=== PATIENT | male | born 1970 | race Caucasian/White ===

== ENCOUNTER 2019-08-14 15:18 | Observation (INO) ==
[2019-08-14] MEDS ORDERED: MoRPHine SULFATE 4 MG/ML 1 ML CARP\\VIAL IV PRN ×2 (15:37→22:08)
[2019-08-14] MEDS ORDERED: ONDANSETRON INJ 2 MG/ML 2 ML VIAL IV STA (15:37)
[2019-08-14] MEDS ORDERED: SODIUM CHLORIDE 0.9% 1000ML 1,000 ML IV SCH (15:45)
--- NOTE | 2019-08-14 15:52 | Emergency Department Note ---
Entered by Aundrea Roberson acting as a scribe for History of Present Illness General Chief complaint: Abdominal Pain Stated complaint: HERNIA, INCARCERATED POSSIBLE OBSTRUCTION Source: patient History of Present Illness Provider complaint: Abdominal Pain Onset (ago): hour(s) 6 Location: abdomen Maximum Pain Intensity: 8 Relieved By: + none Exacerbated By: + none Associated symptoms: + nausea/vomiting (Positive nausea. Negative vomiting. ) The patient is a 49 year old male who presents to the Emergency Room with com plaints of abdominal pain that began about 6 hours ago. The patient notes that he has had a hernia that was not an issue for about a year and when he woke up this morning he noticed it was protruded. The patient states that his symptoms are not relieved nor exacerbated by anything specific. The patient reports experiencing nausea but denies any vomiting. Home Medications Home Medications Medication Instructions Recorded Confirmed Type No Known Home Medications 08/14/19 08/14/19 History Allergies Allergy/AdvReac Type Severity Reaction Status Date / Time No Known Allergies Allergy Unverified 08/14/19 16:07 Past Med/Surg History Medical History (Updated 08/14/19 @ 17:48 by Eduardo Rogers DO) No pertinent past medical history Surgical History (Updated 08/14/19 @ 18:08 by Burton Barone MD) No pertinent past surgical history S/P appendectomy S/P nasal surgery after fracture with repair of the infraorbital rim S/P wisdom tooth extraction Family History Other No pertinent family history in first degree relatives Social History (Updated 08/14/19 @ 18:09 by Burton Barone MD) Feels Safe at Home: Yes Smoking Status: Never smoker Hx Alcohol Use: Yes (Drinks about half a bottle of vodka daily) Review of Systems See HPI for pertinent positives & negatives. and A total of 10 systems reviewed and were otherwise negative Physical Exam Vital Signs Vital Signs - 24 hr 08/14/19 15:22 08/14/19 15:52 08/14/19 16:00 Pulse Rate 84 71 89 Pulse Rate [Finger] 71 Pulse Rate from SpO2 Sensor 86 Pulse Rhythm [Finger] Respiratory Rate 20 17 20 Respiratory Effort / Characteristics Non-Labored Spontaneous Respiratory Depth Normal Respiratory Pattern Regular Blood Pressure 155/102 H 145/97 H Blood Pressure [Right Arm] 151/101 H Blood Pressure Mean 119 115 Blood Pressure Mean [Right Arm] 117 Pulse Oximetry 97 97 98 Oxygen Delivery Method Room Air Room Air Sepsis Recent Fever Within 48 Hours No Sepsis Action Taken by Nursing No Action Required 08/14/19 16:13 08/14/19 18:00 08/14/19 18:23 Pulse Rate 102 H 102 H Pulse Rate [Finger] 80 Pulse Rate from SpO2 Sensor 100 H 96 H Pulse Rhythm [Finger] Regular Respiratory Rate 21 25 H 16 Respiratory Effort / Characteristics Non-Labored Respiratory Depth Normal Respiratory Pattern Regular Blood Pressure 149/103 H Blood Pressure [Right Arm] 145/97 H Blood Pressure Mean 118 Blood Pressure Mean [Right Arm] 113 Pulse Oximetry 98 95 93 Oxygen Delivery Method Room Air Sepsis Recent Fever Within 48 Hours Sepsis Action Taken by Nursing GENERAL: Patient is awake and alert. He is very anxious appearing and appears to be uncomfortable. EYES: The conjunctivae are clear. The pupils are round and reactive. EARS, NOSE, MOUTH AND THROAT: The nose is without any evidence of any deformity. Mucous membranes are moist. Tongue is midline. NECK: The neck is nontender and supple. RESPIRATORY: Normal respiratory effort is noted there is no evidence of wheezing rhonchi or rales CARDIOVASCULAR: Regular rate and rhythm noted there no murmurs rubs or gallops normal S1 normal S2. GASTROINTESTINAL: The abdomen is moderately distended. There is an umbilical hernia which is not able to be reduced at this time. There is significant tenderness over this area. MUSCULOSKELETAL/EXTREMITIES: There is no evidence of gross deformity full range of motion is noted in the hips and shoulders. SKIN: There is no obvious evidence of any rash. There are no petechiae, pallor or cyanosis noted. NEUROLOGIC: Patient is awake alert and oriented x3. Course Course 1530: Past medical records reviewed. The patient was evaluated in room C10. A complete history and physical exam was performed. 1649: I spoke with Dr. Barone- General Surgery about the patient's case and he will come down and see the patient. 1751: The patient was taken to the operating room. Administered Medications Ioversol (Optiray 320 100ml) 94 ml IV ONCE PRN PRN Reason: Interaction Checking Stop: 08/18/19 16:28 Last Admin: 08/14/19 16:29 Dose: 94 ml Documented by: [id number] Morphine Sulfate (Morphine Sulfate) 4 mg IV Q15M PRN PRN Reason: Pain Stop: 08/28/19 15:36 Last Admin: 08/14/19 15:53 Dose: 4 mg Documented by: [id number] Discontinued Medications Sodium Chloride (Nss 1000ml) 1,000 mls @ 999 mls/hr IV .Q1H1M VINAY Stop: 08/14/19 16:45 Last Infusion: 08/14/19 17:01 Dose: 0 mls/hr Documented by: [id number] Admin: 08/14/19 15:53 Dose: 999 mls/hr Documented by: [id number] Ondansetron HCl (Zofran) 4 mg IV NOW STA Stop: 08/14/19 15:38 Last Admin: 08/14/19 15:53 Dose: 4 mg Documented by: [id number] Medical Decision Making Differential Diagnosis Differential diagnosis: Etiologies such as biliary colic, cholecystitis, hepatitis, pancreatitis, cardiac disease, pancreatitis, gastritis, peptic ulcer disease, appendicitis, cystitis, diverticulitis, mesenteric ischemia, inflammatory bowel disease, ileus, bowel obstruction, testicular torsion, aortic pathology, shingles, as well as others were considered. Medical Records Attestation: I reviewed the patient's medical records. Home Medications Current Medication List: was personally reviewed by me Laboratory Data Attestation: I reviewed the patient's lab results. Result diagrams: 08/14/19 15:48 08/14/19 15:48 Lab Results 08/14/19 08/14/19 08/14/19 Range/Units 15:48 15:48 17:03 WBC 8.70 (4.8-10.8) K/uL RBC 4.69 L (4.7-6.1) M/uL Hgb 14.8 (14.0-18.0) g/dL Hct 43.2 (42-52) % MCV 92.1 (80-100) fL MCH 31.6 (25-34) pg MCHC 34.3 (32-36) g/dL RDW Std Deviation 43.3 (36.4-46.3) fL RDW Coeff of Javy 13.1 (11.5-14.5) % Plt Count 179 (130-400) K/uL MPV 9.3 (7.4-10.4) fL Immature Gran % (Auto) 0.1 % Neut % (Auto) 89.3 % Lymph % (Auto) 8.4 % [place] % (Auto) 2.0 % Eos % (Auto) 0.1 % Baso % (Auto) 0.1 % Immature Gran # (Auto) 0.01 (0.00-0.02) K/uL Neut # (Auto) 7.77 H (1.4-6.5) K/uL Lymph # (Auto) 0.73 L (1.2-3.4) K/uL [place] # (Auto) 0.17 (0.11-0.59) K/uL Eos # (Auto) 0.01 (0-0.5) K/uL Baso # (Auto) 0.01 (0-0.2) K/uL Sodium 139 (136-145) mmol/L Potassium 4.3 (3.5-5.1) mmol/L Chloride 103 (98-107) mmol/L Carbon Dioxide 25 (21-32) mmol/L Anion Gap 11.0 (3-11) BUN 14 (7-18) mg/dl Creatinine 0.87 (0.6-1.4) mg/dl Est Cr Clr Drug Dosing 132.5 ml/min Est GFR ( Amer) 119.1 Est GFR (Non-Af Amer) 102.8 BUN/Creatinine Ratio 15.8 (10-20) Glucose 133 H (70-99) mg/dl Calcium 9.0 (8.5-10.1) mg/dl Total Bilirubin 0.4 (0.2-1) mg/dl AST 24 (15-37) U/L ALT 37 (12-78) U/L Alkaline Phosphatase 53 (45-117) U/L Total Protein 7.6 (6.4-8.2) gm/dl Albumin 4.1 (3.4-5.0) gm/dl Globulin 3.5 (2.5-4.0) gm/dl Albumin/Globulin Ratio 1.2 (0.9-2) Lipase 59 L (73-393) U/L Urine Color Yellow Urine Appearance Clear (Clear) Urine pH 5.0 (4.5-7.5) Ur Specific [place] 1.037 H (1.000-1.030) Urine Protein Negative (Negative) Urine Glucose (UA) Negative (Negative) Urine Ketones 1+ H (Negative) Urine Blood Negative (Negative) Urine Nitrite Negative (Negative) Urine Bilirubin Negative (Negative) Urine Urobilinogen Negative (Negative) Ur Leukocyte Esterase Negative (Negative) Imaging Data Radiologist's Impression: Radiology results as stated below per my review and the radiologist's interpretation: CT abd pelvis IV con only CLINICAL HISTORY: 49 years-old Male presenting with pain, umbilical hernia. TECHNIQUE: Multidetector CT of the abdomen and pelvis was performed after the administration of intravenous contrast. IV contrast: 89 mL of Optiray 320. One or more dose lowering techniques were used consistent with the principles of ALARA (as low as reasonably achievable), including automatic exposure control, mA or kV adjustment to individual patient size, and/or use of iterative reconstruction. COMPARISON: None. CT DOSE (mGy.cm): The estimated cumulative dose is 937.62 mGy.cm. 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 Lung bases: Normal heart size. No pericardial or pleural effusion. Minimal dependent changes likely atelectasis. Liver: Normal morphology. Density suggestive of hepatic steatosis. No focal lesion. Patent hepatic vasculature. Biliary: No intrahepatic or extrahepatic biliary ductal dilatation. Normal gallbladder. Pancreas: Normal. Spleen: Normal. Adrenal glands: Normal. Kidneys and ureters: Normal. No hydronephrosis. Bladder: Circumferential bladder wall thickening. Pelvic organs: Prostate and seminal vesicles normal. Bowel: The appendix is not visualized. There is mildly dilated mid ileum with a short segments of herniated small bowel at the level of the umbilicus. There is a transition point upstream and downstream. No significant edema within the mesentery. Peritoneal cavity: Fluid in the helical hernia sac. No ascites. No free intraperitoneal gas. Lymph nodes: No enlarged lymph nodes in the abdomen or pelvis. Vasculature: Aorta and IVC patent and normal in caliber. Abdominal wall: Umbilical hernia containing a short segment of small bowel, which is dilated. In the hernia sac also contains fluid. Small fat-containing left inguinal hernia. Musculoskeletal: Normal. IMPRESSION: 1. Partial small bowel obstruction secondary to a herniated loop of small bowel in the umbilical hernia sac. The morphology raises concern for a closed loop obstruction of the herniated loop as well as an up stream obstruction. Again, this appears partial and low-grade. Surgical consultation is recommended. 2. Circumferential bladder wall thickening may represent developing chronic bladder outlet obstruction in the setting of benign prostatic hyperplasia versus cystitis. Correlate with urinalysis. 3. Hepatic steatosis. The report will be called/faxed according to standard departmental protocol. ACT 112: Negative or not required by law. Electronically signed by: Addi Brown M.D. 08/14/2019 4:42 PM Blood Pressure Blood Pressure Findings: Elevated blood pressure Blood Pressure Disposition: further management by hospitalist MDM Narrative The patient is a 49-year-old male who presented to the emergency department for an evaluation of umbilical pain. The patient has a history of an umbilical hernia which he noticed approximately a year ago however this morning he noticed that the hernia was protruding and would not reduce. The patient went to [facility] but was sent to the emergency department for further evaluation. The patient was treated with IV pain medication. I was unable to reduce the hernia. CT suggested that this was related to a bowel obstruction as well as an incarcerated hernia. I discussed the patient's laboratory and radiographic studies with him. He was feeling somewhat improved after pain medication. I discussed his case with the on-call general surgeon. They have agreed to evaluate the patient in the emergency department for further management and disposition. Impression & Plan Incarcerated umbilical hernia, Small bowel obstruction, Abdominal pain Discharge Plan Visit Data Chief Complaint: Abdominal Pain Stated Complaint: HERNIA, INCARCERATED POSSIBLE OBSTRUCTION ED Provider: Eduardo Rogers Discharge Problem: Incarcerated umbilical hernia, Small bowel obstruction, Abdominal pain Forms Stand Alone Forms: Call Back Authorization, [facility] Prescriptions Prescriptions: No Action No Known Home Medications RF: 0 Discharge Problem: Abdominal pain Qualifiers: Abdominal location: periumbilical Qualified Code(s): R10.33 - Periumbilical pain The scribe's documentation has been prepared under my direction and personally reviewed by me in its entirety. I confirm that the note above accurately reflects all work, treatment, procedures, and medical decision making performed by me.
[2019-08-14 15:55] LABS: Basophils # (auto) 0.01 K/uL (0-0.2); Basophils % (auto) 0.1 %; Eosinophils # (auto) 0.01 K/uL (0-0.5); Eosinophils % (auto) 0.1 %; Hematocrit (blood only) 43.2 % (42-52); Hemoglobin 14.8 g/dL (14.0-18.0); Immature Granulocytes # (auto) 0.01 K/uL (0.00-0.02); Immature Granulocytes % (auto) 0.1 %; Lymphocytes # (auto) 0.73 K/uL (1.2-3.4); Lymphocytes % (auto) 8.4 %; Mean Corpuscular Hemoglobin 31.6 pg (25-34); Mean Corpuscular Hgb Conc 34.3 g/dL (32-36); Mean Corpuscular Volume 92.1 fL (80-100); Mean Platelet Volume 9.3 fL (7.4-10.4); Monocytes # (auto) 0.17 K/uL (0.11-0.59); Neutrophils # (auto) 7.77 K/uL (1.4-6.5); Neutrophils % (auto) 89.3 %; Platelet Count 179 K/uL (130-400); RDW Coefficient of Variation 13.1 % (11.5-14.5); RDW Standard Deviation 43.3 fL (36.4-46.3); Red Blood Count 4.69 M/uL (4.7-6.1)
[2019-08-14 16:14] LABS: Albumin Level 4.1 gm/dl (3.4-5.0); BUN Creatinine Ratio 15.8 (10-20); Creatinine Clr Calc Pharmacy 132.5 ml/min; Est GFR (African American) 119.1; Est GFR (Non-African American) 102.8; Potassium 4.3 mmol/L (3.5-5.1)
[2019-08-14 16:17] LABS: Albumin Globulin Ratio 1.2 (0.9-2); Bilirubin,Total 0.4 mg/dl (0.2-1); Globulin 3.5 gm/dl (2.5-4.0); Total Protein 7.6 gm/dl (6.4-8.2)
[2019-08-14] MEDS ORDERED: IOVERSOL 100ml IV PRN (16:29)
--- NOTE | 2019-08-14 16:44 | CT Scan Report ---
CT abd pelvis IV con only CLINICAL HISTORY: 49 years-old Male presenting with pain, umbilical hernia. TECHNIQUE: Multidetector CT of the abdomen and pelvis was performed after the administration of intra venous contrast. IV contrast: 89 mL of Optiray 320. One or more dose lowering techniques were used co nsistent with the principles of ALARA (as low as reasonably achievable), including automatic exposure control, mA or kV adjustment to individual patient size, and/or use of iterative reconstruction. COMPARISON: None. CT DOSE (mGy.cm): The estimated cumulative dose is 937.62 mGy.cm. 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 Lung bases: Normal heart size. No pericardial or pleural effusion. Minimal dependent changes likely a telectasis. Liver: Normal morphology. Density suggestive of hepatic steatosis. No focal lesion. Patent hepatic va sculature. Biliary: No intrahepatic or extrahepatic biliary ductal dilatation. Normal gallbladder. Pancreas: Normal. Spleen: Normal. Adrenal glands: Normal. Kidneys and ureters: Normal. No hydronephrosis. Bladder: Circumferential bladder wall thickening. Pelvic organs: Prostate and seminal vesicles normal. Bowel: The appendix is not visualized. There is mildly dilated mid ileum with a short segments of her niated small bowel at the level of the umbilicus. There is a transition point upstream and downstream . No significant edema within the mesentery. Peritoneal cavity: Fluid in the helical hernia sac. No ascites. No free intraperitoneal gas. Lymph nodes: No enlarged lymph nodes in the abdomen or pelvis. Vasculature: Aorta and IVC patent and normal in caliber. Abdominal wall: Umbilical hernia containing a short segment of small bowel, which is dilated. In the hernia sac also contains fluid. Small fat-containing left inguinal hernia. Musculoskeletal: Normal. IMPRESSION: 1. Partial small bowel obstruction secondary to a herniated loop of small bowel in the umbilical her yimi sac. The morphology raises concern for a closed loop obstruction of the herniated loop as well as an up stream obstruction. Again, this appears partial and low-grade. Surgical consultation is recomm ended. 2. Circumferential bladder wall thickening may represent developing chronic bladder outlet obstructi on in the setting of benign prostatic hyperplasia versus cystitis. Correlate with urinalysis. 3. Hepatic steatosis. The report will be called/faxed according to standard departmental protocol. ACT 112: Negative or not required by law. Electronically signed by: Addi Brown M.D. 08/14/2019 4:42 PM
[2019-08-14 17:14] LABS: Appearance Urine Clear (Clear); Bilirubin Urine Negative (Negative); Blood Urine Negative (Negative); Color Urine Yellow; Glucose Urine UA Negative (Negative); Ketones Urine 1+ (Negative); Leukocyte Esterase Urine Negative (Negative); Nitrite Urine Negative (Negative); Protein Urine Negative (Negative); Specific Gravity Urine 1.037 (1.000-1.030); Urobilinogen Urine Negative (Negative)
--- NOTE | 2019-08-14 18:10 | History & Physical Report ---
Date of Service August 14, 2019 Assessment & Plan (1) Incarcerated umbilical hernia: This patient has an incarcerated umbilical hernia that I cannot reduce. He is going to need surgical repair. I explained the possible use of mesh. I explained the possible need to remove a portion of the small bowel if it appears as though it is ischemic. I described the procedure and answered his questions. I discussed the possible complications. He has signed a consent form. History of Present Illness Chief Complaint: Periumbilical abdominal pain Primary Care Provider: NO PCP This is a 49-year-old male who presented to the emergency room with periumbilical abdominal pain that began at approximately 9:00 this morning. The patient states that he has known that he has had an umbilical hernia for at least a year. It may have been increasing in size slowly but it never caused any pain. This morning he developed a mild abdominal discomfort in the periumbilical area and that has increased in intensity and converted to more sharp pain. He states that he feels "gassy" but feels that like he cannot pass the gas. He does not have what he would describe is true nausea and he has not vomited. His last bowel movement was last night and was normal. There was no melena or hematochezia. He has no dysuria or hematuria. He is never had pre vious abdominal surgery in the area of the umbilicus. His only previous surgery was an appendectomy back in the 80s. Allergies Allergy/AdvReac Type Severity Reaction Status Date / Time No Known Allergies Allergy Unverified 08/14/19 16:07 Home Medications Home Medications Medication Instructions Recorded Confirmed Type No Known Home Medications 08/14/19 08/14/19 History Past Med/Surg History Medical History (Updated 08/14/19 @ 17:48 by Eduardo Rogers DO) No pertinent past medical history Surgical History (Updated 08/14/19 @ 18:08 by Burton Barone MD) No pertinent past surgical history S/P appendectomy S/P nasal surgery after fracture with repair of the infraorbital rim S/P wisdom tooth extraction Family History Other No pertinent family history in first degree relatives Social History (Updated 08/14/19 @ 18:09 by Burton Barone MD) Feels Safe at Home: Yes Smoking Status: Never smoker Hx Alcohol Use: Yes (Drinks about half a bottle of vodka daily) Review of Systems Review of Systems: All systems reviewed & are unremarkable except as noted in HPI & below Physical Exam Constitutional: no acute distress Neck: trachea midline Respiratory: normal respiratory effort, lungs clear to auscultation Cardiovascular: Rate/Rhythm: regular rate and regular rhythm Gastrointestinal (Abdomen): Inspection/Auscultation: normal bowel sounds; abdomen not distended Percussion/Palpation: + abdomen tender (And periumbilical area) and abdomen soft There is a bulge beneath the umbilicus that I cannot reduce Skin: no rashes, warm and dry Lymphatic: no cervical lymphadenopathy Results & Data Vital Signs (Past 12 Hours) Vital Signs Pulse Pulse Resp BP BP Pulse Ox 08/14/19 16:13 80 21 145/97 H 98 08/14/19 15:52 71 71 17 151/101 H 97 08/14/19 15:22 84 20 155/102 H 97 Laboratory Results 08/14/19 08/14/19 08/14/19 Range/Units 17:03 15:48 15:48 WBC 8.70 (4.8-10.8) K/uL RBC 4.69 L (4.7-6.1) M/uL Hgb 14.8 (14.0-18.0) g/dL Hct 43.2 (42-52) % MCV 92.1 (80-100) fL MCH 31.6 (25-34) pg MCHC 34.3 (32-36) g/dL RDW Std Deviation 43.3 (36.4-46.3) fL RDW Coeff of Javy 13.1 (11.5-14.5) % Plt Count 179 (130-400) K/uL MPV 9.3 (7.4-10.4) fL Immature Gran % (Auto) 0.1 % Neut % (Auto) 89.3 % Lymph % (Auto) 8.4 % [place] % (Auto) 2.0 % Eos % (Auto) 0.1 % Baso % (Auto) 0.1 % Immature Gran # (Auto) 0.01 (0.00-0.02) K/uL Neut # (Auto) 7.77 H (1.4-6.5) K/uL Lymph # (Auto) 0.73 L (1.2-3.4) K/uL [place] # (Auto) 0.17 (0.11-0.59) K/uL Eos # (Auto) 0.01 (0-0.5) K/uL Baso # (Auto) 0.01 (0-0.2) K/uL Sodium 139 (136-145) mmol/L Potassium 4.3 (3.5-5.1) mmol/L Chloride 103 (98-107) mmol/L Carbon Dioxide 25 (21-32) mmol/L Anion Gap 11.0 (3-11) BUN 14 (7-18) mg/dl Creatinine 0.87 (0.6-1.4) mg/dl Est Cr Clr Drug Dosing 132.5 ml/min Est GFR ( Amer) 119.1 Est GFR (Non-Af Amer) 102.8 BUN/Creatinine Ratio 15.8 (10-20) Glucose 133 H (70-99) mg/dl Calcium 9.0 (8.5-10.1) mg/dl Total Bilirubin 0.4 (0.2-1) mg/dl AST 24 (15-37) U/L ALT 37 (12-78) U/L Alkaline Phosphatase 53 (45-117) U/L Total Protein 7.6 (6.4-8.2) gm/dl Albumin 4.1 (3.4-5.0) gm/dl Globulin 3.5 (2.5-4.0) gm/dl Albumin/Globulin Ratio 1.2 (0.9-2) Lipase 59 L (73-393) U/L Urine Color Yellow Urine Appearance Clear (Clear) Urine pH 5.0 (4.5-7.5) Ur Specific [place] 1.037 H (1.000-1.030) Urine Protein Negative (Negative) Urine Glucose (UA) Negative (Negative) Urine Ketones 1+ H (Negative) Urine Blood Negative (Negative) Urine Nitrite Negative (Negative) Urine Bilirubin Negative (Negative) Urine Urobilinogen Negative (Negative) Ur Leukocyte Esterase Negative (Negative) Diagnostic Findings CT abd pelvis IV con only CLINICAL HISTORY: 49 years-old Male presenting with pain, umbilical hernia. TECHNIQUE: Multidetector CT of the abdomen and pelvis was performed after the administration of intravenous contrast. IV contrast: 89 mL of Optiray 320. One or more dose lowering techniques were used consistent with the principles of ALARA (as low as reasonably achievable), including automatic exposure control, mA or kV adjustment to individual patient size, and/or use of iterative reconstruction. COMPARISON: None. CT DOSE (mGy.cm): The estimated cumulative dose is 937.62 mGy.cm. FINDINGS: Patient Representative topogram: Unremarkable. Lung bases: Normal heart size. No pericardial or pleural effusion. Minimal dependent changes likely atelectasis. Liver: Normal morphology. Density suggestive of hepatic steatosis. No focal lesion. Patent hepatic vasculature. Biliary: No intrahepatic or extrahepatic biliary ductal dilatation. Normal gallbladder. Pancreas: Normal. Spleen: Normal. Adrenal glands: Normal. Kidneys and ureters: Normal. No hydronephrosis. Bladder: Circumferential bladder wall thickening. Pelvic organs: Prostate and seminal vesicles normal. Bowel: The appendix is not visualized. There is mildly dilated mid ileum with a short segments of herniated small bowel at the level of the umbilicus. There is a transition point upstream and downstream. No significant edema within the mesentery. Peritoneal cavity: Fluid in the helical hernia sac. No ascites. No free intraperitoneal gas. Lymph nodes: No enlarged lymph nodes in the abdomen or pelvis. Vasculature: Aorta and IVC patent and normal in caliber. Abdominal wall: Umbilical hernia containing a short segment of small bowel, which is dilated. In the hernia sac also contains fluid. Small fat-containing left inguinal hernia. Musculoskeletal: Normal. IMPRESSION: 1. Partial small bowel obstruction secondary to a herniated loop of small bowel in the umbilical hernia sac. The morphology raises concern for a closed loop obstruction of the herniated loop as well as an up stream obstruction. Again, this appears partial and low-grade. Surgical consultation is recommended. 2. Circumferential bladder wall thickening may represent developing chronic bladder outlet obstruction in the setting of benign prostatic hyperplasia versus cystitis. Correlate with urinalysis. 3. Hepatic steatosis.
[2019-08-14] MEDS ORDERED: BUPIVACAINE 0.5 % 5 MG/1 ML MPF 30ML VIAL ONE (19:01)
--- NOTE | 2019-08-14 19:26 | Anesthesiology Consultation ---
Date of Service August 14, 2019 Assessment & Plan Chart Review Chart Review: Acceptable Risk for Surgery Consults Requested none History Surgery Operation Date: 08/14/19 19:00 Proposed Procedures p Umbilical Hernia Repair - Burton Barone MD Height/Weight Height: 6 ft 1 in Weight: 103.2 kg Allergies Allergy/AdvReac Type Severity Reaction Status Date / Time No Known Allergies Allergy Unverified 08/14/19 16:07 Medications Home Medications Medication Instructions Recorded Confirmed Last Taken No Known Home Medications 08/14/19 08/14/19 Unknown Active Medications Generic Name Dose Route Start Last Admin Trade Name Freq PRN Reason Stop Dose Admin Ioversol 94 ml 08/14/19 16:29 08/14/19 16:29 Optiray 320 100ml IV 08/18/19 16:28 94 ml ONCE PRN Administration Interaction Checking Morphine Sulfate 4 mg 08/14/19 15:37 08/14/19 15:53 Morphine Sulfate IV 08/28/19 15:36 4 mg Q15M PRN Administration Pain NPO Date Last Intake of Fluids: 08/14/19 Time Last Intake of Fluids: 11:00 Date Last Intake of Solids: 08/14/19 Time Last Intake of Solids: 11:00 Past Medical History Medical History No pertinent past medical history Past Family History Family History Other No pertinent family history in first degree relatives Past Surgical History Surgical History No pertinent past surgical history S/P appendectomy S/P nasal surgery after fracture with repair of the infraorbital rim S/P wisdom tooth extraction Social History Smoking Status: Never smoker Hx Alcohol Use: Yes (Drinks about half a bottle of vodka daily) Physical Exam Vital Signs Last Vital Signs Pulse 92 H 08/14/19 19:00 Resp 19 08/14/19 19:00 BP 164/99 H 08/14/19 19:00 Pulse Ox 94 08/14/19 19:00 Testing Laboratory Results 08/14/19 15:48 08/14/19 15:48 Urine Color Yellow 08/14/19 17:03 Urine Appearance Clear (Clear) 08/14/19 17:03 Urine pH 5.0 (4.5-7.5) 08/14/19 17:03 Ur Specific [place] 1.037 (1.000-1.030) H 08/14/19 17:03 Urine Protein Negative (Negative) 08/14/19 17:03 Urine Glucose (UA) Negative (Negative) 08/14/19 17:03 Urine Ketones 1+ (Negative) H 08/14/19 17:03 Urine Nitrite Negative (Negative) 08/14/19 17:03 Ur Leukocyte Esterase Negative (Negative) 08/14/19 17:03
[2019-08-14] MEDS ORDERED: fentaNYL citrate 100 MCG/2 ML VIAL ONE ×2 (19:30→20:51)
[2019-08-14] MEDS ORDERED: CEFAZOLIN 2000MG 2,000 MG/15 ML SYR IV ONE (20:09)
[2019-08-14] MEDS ORDERED: PROPOFOL IV EMULSION 10 MG/ML 20 ML VIAL IV ONE (20:19)
[2019-08-14] MEDS ORDERED: ROCURONIUM BROMIDE 10 MG/ML 5 ML VIAL ONE ×2 (20:20→20:22)
[2019-08-14] MEDS ORDERED: SUCCINYLCHOLINE CHLORIDE 20 MG/ML 10 ML VIAL ONE (20:20)
[2019-08-14] MEDS ORDERED: NEOSTIGMINE METHYLSULFATE 5 MG/5 ML SYR ONE (20:21)
[2019-08-14] MEDS ORDERED: DEXAMETHASONE SOD INJ 4 MG/ML VIAL ONE (20:21)
[2019-08-14] MEDS ORDERED: ONDANSETRON INJ 2 MG/ML 2 ML VIAL ONE (20:21)
[2019-08-14] MEDS ORDERED: GLYCOPYRROLATE 0.2 MG/ML VIAL ONE (20:21)
[2019-08-14] MEDS ORDERED: fentaNYL citrate 100 MCG/2 ML VIAL IV PRN (20:28)
[2019-08-14] MEDS ORDERED: METOCLOPRAMIDE HCL INJ 5 MG/ML 2 ML VIAL IV PRN (20:28)
[2019-08-14] MEDS ORDERED: ATROPINE SULFATE 0.1 MG/ML 10ML SYR IV PRN (20:28)
[2019-08-14] MEDS ORDERED: ePHEDrine sulfate 50 MG/ML AMP IV PRN (20:28)
[2019-08-14] MEDS ORDERED: MoRPHine SULFATE 10 MG/ML CARP/VIAL IV PRN (20:28)
[2019-08-14] MEDS ORDERED: ONDANSETRON INJ 2 MG/ML 2 ML VIAL IV PRN ×2 (20:28→22:08)
[2019-08-14] MEDS ORDERED: PROMETHAZINE HCL 12.5 MG in SODIUM CHLORIDE 0.9% 50 ML IV PRN (20:28)
[2019-08-14] MEDS ORDERED: HYDROmorphone INJ 2 MG/ML SYR/VIAL IV PRN (20:28)
--- NOTE | 2019-08-14 21:02 | Post Operative Brief Note ---
Immediate Post Op Note v1 Date of Surgery August 14, 2019 Pre & Post Diagnosis Operation Date: 08/14/19 19:00 Pre-Op Diagnosis: Incarcerated Umbilical Hernia Post-Op Diagnosis: Incarcerated Umbilical Hernia I identified the patient and participated in the time-out.: Yes Procedure Operation Date: 08/14/19 19:00 Actual Procedures p Open Umbilical Hernia Repair, with Mesh(Not Applicable) - Burton Barone MD Surgeon Burton Barone MD Bobbin Drier None Estimated Blood Loss 10 Findings Consistent with Post-Op Diagnosis Anesthesia Type General Complications none
--- NOTE | 2019-08-14 21:48 | Anesthesiology Progress Note ---
Date of Service August 14, 2019 Anesthesia Post Procedure Vital Signs Vital Signs: Temp Pulse Pulse Pulse Resp BP BP 08/14/19 21:40 76 15 154/100 H 08/14/19 21:30 74 13 150/87 H 08/14/19 21:20 72 14 152/90 H 08/14/19 21:11 36.2 C L 74 14 152/101 H 08/14/19 19:00 92 H 19 164/99 H 08/14/19 18:30 104 H 20 166/103 H 08/14/19 18:24 106 H 20 149/103 H 08/14/19 18:23 102 H 16 149/103 H 08/14/19 18:00 102 H 25 H 08/14/19 16:13 80 21 145/97 H 08/14/19 16:00 89 20 145/97 H 08/14/19 15:52 71 71 17 151/101 H 08/14/19 15:22 84 20 155/102 H Pulse Ox 08/14/19 21:40 100 08/14/19 21:30 100 08/14/19 21:20 99 08/14/19 21:11 97 08/14/19 19:00 94 08/14/19 18:30 96 08/14/19 18:24 95 08/14/19 18:23 93 08/14/19 18:00 95 08/14/19 16:13 98 08/14/19 16:00 98 08/14/19 15:52 97 08/14/19 15:22 97 Pain Intensity Abdomen: Pain Intensity: 5 Transfer of Care Handoff Completed per policy Notes Mental Status: alert / awake / arousable and participated in evaluation Patient Amnestic to Procedure: Yes Nausea / Vomiting: adequately controlled Pain: adequately controlled Airway Patency, RR, SpO2: stable & adequate BP & HR: stable & adequate Hydration State: stable & adequate Anesthetic Complications: no major complications apparent
--- NOTE | 2019-08-14 22:01 | Operative Report ---
DATE OF OPERATION: 08/14/2019 PREOPERATIVE DIAGNOSIS: Incarcerated umbilical hernia. POSTOPERATIVE DIAGNOSIS: Incarcerated umbilical hernia. PROCEDURE: Repair of incarcerated umbilical hernia. SURGEON: Burton Barone MD FINDINGS: The patient had a hernia defect that measured 2 cm. There was bowel within the hernia seen on CT scan. During dissection of the hernia sac away from the surrounding subcutaneous tissue, it reduced spontaneously. I did not visualize the bowel that was within the hernia. There were no other defects identified. TECHNIQUE: The patient was given a general anesthetic and the area was prepped and draped in the usual sterile fashion. Transverse incision was made below the umbilicus, carried down through the subcutaneous tissue. The hernia sac was the size of a small orange. It was dissected away from the subcutaneous and connective tissue on the inferior side. I then worked towards the left and then towards the right and then peeled the overlying dermis of the umbilical skin off the anterior surface of the sac and then worked superiorly until it was freed off the dermis. I then dissected down to the fascia and peeled it off the anterior surface of the fascia and identified the fascial edge and performed the dissection of the subcutaneous and connective tissue until I had freed the hernia sac and was able to identify the entire fascial edge in its entire circumference. Towards the left side, I elevated the fascial edge and establish a plane between the hernia sac and the overlying fascia and I then continued that dissection superiorly, inferiorly, and then to the right. Once I had it freed and I was able to bluntly dissect the peritoneum away for about a cm around each side, I then opened the hernia sac. There were no other incarcerated contents. I excised the redundant sac and then closed the peritoneal opening using a running 2-0 Vicryl. That was then placed back into its anatomic position and the fascial edges were elevated and I created a preperitoneal/retrofascial space measuring 5 cm in radius around the entire circumference of the fascial defect. I then placed a 10 cm piece of Surgimesh. It fit nicely and was lying flat. I then tacked the mesh to the undersurface of the fascia in 4 quadrants using 0 PDS. The fascial opening was closed transversely with a running #1 PDS. The subcutaneous tissue was approximated deeply with interrupted 2-0 Vicryl with one of which I grasped the undersurface of the dermis of the thickened umbilical tissue to create an inverted umbilicus. The superficial subcutaneous tissue was closed with running 3-0 Vicryl and the skin was closed with 4-0 Monocryl in a running subcuticular fashion. The skin was anesthetized with 0.5% Marcaine. The skin was cleansed, dried, benzoin placed, Steri-Strips applied. A cotton ball was placed into the umbilicus and an Op-Site was placed over it. The estimated blood loss was 10 mL. Sponge, needle and instrument counts were correct prior to closure. The patient tolerated the surgical procedure without complication and was transferred to recovery. I attest to the content of the Intraoperative Record and any orders documented therein. Any exceptions are noted below. RICOD
[2019-08-14] MEDS ORDERED: OXYCODONE/ACETAMINOPHEN 5mg/325mg TAB PO PRN (22:08)
[2019-08-14] MEDS: D5W AND 1/2NSS + 20MEQ KCL 20 MEQ/1,000 ML BAG IV SCH (23:40)
[2019-08-15] MEDS ORDERED: ACETAMINOPHEN 325 MG TAB PO PRN (07:56)
[2019-08-15] MEDS: D5W AND 1/2NSS + 20MEQ KCL 20 MEQ/1,000 ML BAG IV SCH (08:00)
[2019-08-15] MEDS ORDERED: INFLUENZA VIRUS QUAD VACCINE 0.5 ML SYR IM ONE (08:00)
[2019-08-15] MEDS ORDERED: INFLUENZA ADMINISTRATION CHARGE ONE (08:00)
--- NOTE | 2019-08-15 08:22 | Anesthesiology Progress Note ---
Date of Service August 15, 2019 Anesthesia Post Procedure Vital Signs Vital Signs: Temp Pulse Pulse Pulse Pulse Resp BP 08/15/19 07:30 37.0 C 90 14 08/15/19 03:24 37.0 C 97 H 16 08/15/19 00:58 37.3 C 97 H 16 08/14/19 23:55 37.1 C 99 H 16 08/14/19 22:41 36.9 C 100 H 16 08/14/19 22:10 37 C 94 H 18 08/14/19 21:48 36.5 C 77 15 08/14/19 21:40 76 15 08/14/19 21:30 74 13 08/14/19 21:20 72 14 08/14/19 21:11 36.2 C L 74 14 08/14/19 19:00 92 H 19 164/99 H 08/14/19 18:30 104 H 20 166/103 H 08/14/19 18:24 106 H 20 149/103 H 08/14/19 18:23 102 H 16 149/103 H 08/14/19 18:00 102 H 25 H 08/14/19 16:13 80 21 08/14/19 16:00 89 20 145/97 H 08/14/19 15:52 71 71 17 08/14/19 15:22 84 20 155/102 H BP Pulse Ox 08/15/19 07:30 130/90 95 08/15/19 03:24 156/89 H 95 08/15/19 00:58 156/88 H 94 08/14/19 23:55 158/90 H 93 08/14/19 22:41 167/93 H 95 08/14/19 22:10 155/94 H 96 08/14/19 21:48 149/99 H 100 08/14/19 21:40 154/100 H 100 08/14/19 21:30 150/87 H 100 08/14/19 21:20 152/90 H 99 08/14/19 21:11 152/101 H 97 08/14/19 19:00 94 08/14/19 18:30 96 08/14/19 18:24 95 08/14/19 18:23 93 08/14/19 18:00 95 08/14/19 16:13 145/97 H 98 08/14/19 16:00 98 08/14/19 15:52 151/101 H 97 08/14/19 15:22 97 Pain Intensity Abdomen: Pain Intensity: 1 Notes Mental Status: alert / awake / arousable Patient Amnestic to Procedure: Yes Nausea / Vomiting: adequately controlled Pain: adequately controlled Airway Patency, RR, SpO2: stable & adequate BP & HR: stable & adequate Hydration State: stable & adequate Anesthetic Complications: no major complications apparent
--- NOTE | 2019-08-15 08:24 | Surgery Progress Note ---
Date of Service August 15, 2019 Assessment & Plan (1) Incarcerated umbilical hernia: POD # 0 s/p open umbilical hernia repair with mesh -vitals stable, afebrile - minimal post op pain Plan: Clear liquids for breakfast, advance as tolerated after Tylenol 650 mg every 6 hours as needed for pain continue ambulation continue IV fluids for now will re-evaluate later this afternoon likely home this afternoon/early evening Discussed with DR. Barone who is to evaluate pt later today Subjective feeling well just ambulated hallway 6 or 7 laps minimal to no abdominal pain has not passed gas yet has not had anything to drink/eat other than water no chest pain, SOB, dizziness Physical Exam Constitutional: WD/WN, vitals as above no acute distress Respiratory: normal respiratory effort Gastrointestinal (Abdomen): Inspection/Auscultation: abdomen normal to inspection; abdomen not distended Percussion/Palpation: + abdomen tender (at incision site) and abdomen soft; no guarding and abdomen not rigid Skin: no rashes, warm and dry + incision Psychiatric: A+Ox3, euthymic affect Results & Data Vital Signs (Past 12 Hours) Vital Signs Temp Pulse Pulse Resp BP Pulse Ox 08/15/19 07:30 37.0 C 90 14 130/90 95 08/15/19 03:24 37.0 C 97 H 16 156/89 H 95 08/15/19 00:58 37.3 C 97 H 16 156/88 H 94 08/14/19 23:55 37.1 C 99 H 16 158/90 H 93 08/14/19 22:41 36.9 C 100 H 16 167/93 H 95 08/14/19 22:10 37 C 94 H 18 155/94 H 96 08/14/19 21:48 36.5 C 77 15 149/99 H 100 08/14/19 21:40 76 15 154/100 H 100 08/14/19 21:30 74 13 150/87 H 100 08/14/19 21:20 72 14 152/90 H 99 08/14/19 21:11 36.2 C L 74 14 152/101 H 97
--- NOTE | 2019-08-16 10:36 | Discharge Summary ---
Date of Service August 16, 2019 Admission HPI Per Admitting Provider This is a 49-year-old male who presented to the emergency room with periumbilical abdominal pain that began at approximately 9:00 this morning. The patient states that he has known that he has had an umbilical hernia for at least a year. It may have been increasing in size slowly but it never caused any pain. This morning he developed a mild abdominal discomfort in the periumbilical area and that has increased in intensity and converted to more sharp pain. He states that he feels "gassy" but feels that like he cannot pass the gas. He does not have what he would describe is true nausea and he has not vomited. His last bowel movement was last night and was normal. There was no melena or hematochezia. He has no dysuria or hematuria. He is never had previous abdominal surgery in the area of the umbilicus. His only previous surgery was an appendectomy back in the 80s. Principal Diagnosis Incarcerated umbilical hernia with SBO Discharge Data Allergies Allergy/AdvReac Type Severity Reaction Status Date / Time No Known Allergies Allergy Unverified 08/14/19 16:07 Consultations 08/14/19 17:33 ED Decision to Admit Stat Procedures Performed Operation Date: 08/14/19 19:00 Actual Procedures p Open Umbilical Hernia Repair, with Mesh(Not Applicable) - Burton Barone MD Ordered Studies 08/14/19 15:37 CT abd pelvis IV con only Stat Hospital Course (1) Incarcerated umbilical hernia: Patient taken to operating rom for repair of incarcerated umbilical hernia with possible mesh. Patient found to have incarcerated hernia however bowel reduced spontaneously. Mesh was placed in the procedure. Patient tolerated procedure well and was transferred to recovery then to medical/surgical floor for postop care. Diet advanced to clear liquids at first. PO percocet as needed for pain. Activity as tolerated. POD # 0 vitals stable, afebrile, minimal to no postop pain. Did not have much clear liquids after surgery so was waiting for clears for breakfast. No nausea or vomiting. No flatus yet. Ambulating hallway. Diet advanced as tolerated an patient was discharged home in afternoon of POD # 0 in stable condition. Total Time Total Time Spent Total Time Spent (In Minutes): 30 Total Time Includes: Examination of the Patient, Discharge Planning and Medication Reconciliation Discharge Plan Discharge Items Patient Disposition: Home - Self-Care Reason For Visit: INCARCERATED UMBILICAL HERNIA Discharge Diagnosis: Incarcerated umbilical hernia Activity: Per Instructions section Non-emergency contact: Surgeon Call non-emergency contact if: you have any medication questions, your pain is not controlled, your pain is worsening, your pain is unusual for you, your pain is concerning for you, you have a fever, your temperature is above 101, your wound has increased redness, your wound has increased drainage and your wound pain has increased Follow-up/Referrals: PCP,NO [Primary Care Provider] - Diet: Regular Addtl Attending Provider Instructions: ACTIVITY RECOMMENDATIONS: * Walk as much as possible. * No heavy lifting (>10 lbs.) for 6 weeks. SPECIAL CARE INSTRUCTIONS: * May apply ice to hernia repair site on and off as needed for pain. * May shower this evening.. Let water run over area and pat dry. * Leave steri strips on for one week. * Call the surgeon's office with any questions or concerns - (ex. temperature higher than 101 degrees F, excessive bleeding or pain). MEDICATIONS: Resume previous medications unless instructed otherwise by your surgeon. * Ibuprofen 600 mg every 6 hours with food * Percocet 1 every 4 hours, as needed for pain * Tylenol 650 mg every 6 hours as needed for pain. DO NOT exceed 3,000 mg of Tylenol in a 24 hour period. FOLLOW UP VISIT: If not already scheduled, please call the office to schedule a two week follow- up appointment. Office number Pending Studies at Discharge: No Stand-Alone Forms: Call Back Authorization, [facility], [facility], Work/School Release (Inpt), Smoking Cessation Medications and DC Order Prescriptions: No Action No Known Home Medications RF: 0 Discharge Orders: Discharge Order (Routine); Ordered 08/15/19 Ordered By: Burton Coffey/Other Patient Handouts: Care Incision, Surgery Hernia Repair Admission Data Admit Date/Time: 08/14/19 21:36 Attending Provider: Burton Barone Admit Provider: Burton Barone Primary Care Provider: PCP,NO Other Providers: Burton Barone Other Interventions: Discharge Summary Assessment (RN) Last Done: 08/15/19 16:36 DC Date/Time DO NOT enter until pt leaves facility: 08/15/19 17:28
== END 2019-08-15 17:28 | disposition home or self-care (01) ==
LOC: ED 15:18 → OR 18:28 → 3N 18:28
DX: K42.0 Umbilical hernia with obstruction, without gangrene

== ENCOUNTER 2020-03-14 23:50 | Inpatient (IN) ==
[2020-03-15] MEDS ORDERED: ADENOSINE IV SOLN 3 MG/ML 2 ML VIAL IV ONE (00:10)
[2020-03-15] MEDS ORDERED: MULTI-VITAMIN INFUSION 10 ML, THIAMINE HCL 100 MG, FOLIC ACID 1 MG in SODIUM CHLORIDE 0... IV ONE (00:22)
[2020-03-15] MEDS ORDERED: SODIUM CHLORIDE 0.9% 500 ML IV SCH (00:30)
[2020-03-15 00:35] LABS: Basophils # (auto) 0.03 K/uL (0-0.2); Basophils % (auto) 0.2 %; Eosinophils # (auto) 0.01 K/uL (0-0.5); Eosinophils % (auto) 0.1 %; Hematocrit (blood only) 45.4 % (42-52); Hemoglobin 15.6 g/dL (14.0-18.0); Immature Granulocytes # (auto) 0.03 K/uL (0.00-0.02); Immature Granulocytes % (auto) 0.2 %; Lymphocytes # (auto) 2.32 K/uL (1.2-3.4); Lymphocytes % (auto) 17.9 %; Mean Corpuscular Hemoglobin 32.1 pg (25-34); Mean Corpuscular Hgb Conc 34.4 g/dL (32-36); Mean Corpuscular Volume 93.4 fL (80-100); Mean Platelet Volume 9.7 fL (7.4-10.4); Monocytes # (auto) 0.82 K/uL (0.11-0.59); Monocytes % (auto) 6.3 %; Neutrophils # (auto) 9.73 K/uL (1.4-6.5); Neutrophils % (auto) 75.3 %; Platelet Count 226 K/uL (130-400); RDW Coefficient of Variation 13.2 % (11.5-14.5); RDW Standard Deviation 45.2 fL (36.4-46.3); Red Blood Count 4.86 M/uL (4.7-6.1); White Blood Count 12.94 K/uL (4.8-10.8)
[2020-03-15 00:50] LABS: Albumin Level 3.8 gm/dl (3.4-5.0); Calcium 9.6 mg/dl (8.5-10.1); Magnesium 1.5 mg/dl (1.8-2.4); Potassium 3.2 mmol/L (3.5-5.1)
[2020-03-15 00:51] LABS: BUN Creatinine Ratio 11.6 (10-20); Creatinine Clr Calc Pharmacy 82.2 ml/min; Est GFR (African American) 68.9; Est GFR (Non-African American) 59.4
[2020-03-15 01:06] LABS: Bilirubin,Total 1.1 mg/dl (0.2-1); Globulin 3.9 gm/dl (2.5-4.0); Thyroid Stimulating Hormone 1.94 uIu/ml (0.300-4.500); Total Protein 7.7 gm/dl (6.4-8.2); Troponin I 0.464 ng/ml (0-0.045)
[2020-03-15] MEDS ORDERED: MAGNESIUM SULFATE / D5W 1 GM/100 ML BAG IV STA ×2 (01:20→02:01)
--- NOTE | 2020-03-15 01:20 | Emergency Department Note ---
Impression & Plan SVT (supraventricular tachycardia), Hypomagnesemia, Elevated troponin I level ED Provider Note NAME: ELAINE BRADEN AGE: 49 SEX: M ARRIVES VIA: Walk-In INFORMANT: Patient ED PROVIDER(S): Le Hernandez DO CHIEF COMPLAINT: Rib cage discomfort PLAN: [facility] Stable MEDICAL DECISION MAKING: This is a 49-year-old male patient who presents to the emergency department with pain about his rib cage, back pain and diaphoresis. Patient had epigastric discomfort that he felt he could not clear by burping. Upon presentation to the emergency department, the patient was in SVT at a rate of 220. His blood pressure was stable at the time and he received IV adenosine which broke the dysrhythmia. The patient was noted to be hypertensive and had a positive troponin. The patient does not routinely seek medical care. He does have a family history of hypertension. He does drink alcohol regularly. I discussed the case with the [facility] hospitalist and they will evaluate for further management. Triage Nursing notes reviewed and agree them. Vital Signs: reviewed and remarkable for tachycardia and hypertension Differential diagnosis: Cardiac dysrhythmia, cardiac ischemia, electrolyte abnormality ER treatment provided: IV adenosine, IV magnesium Diagnostics interpreted by me: ECG: SVT at a rate of 219 with significant T wave inversion and ST segment depression in the inferior and lateral leads concerning for ischemia. Repeat EKG sinus tachycardia at 103 with T wave inversion in the inferior and lateral leads concerning for inferior lateral ischemia. Cardiac Monitoring: Sinus tachycardia at 104. Laboratory studies: See below Imaging studies: As per my interpretation Chest x-ray: Moderate cardiomegaly with no other acute pulmonary findings HPI: 49/M arrives for evaluation of rib cage pain, back pain and diaphoresis. The patient awoke yesterday morning with epigastric discomfort what he describes as a gas bubble that he could not get rid of. He tried drinking soda but the discomfort would not go away. The patient went to work and felt nauseated throughout the day. He ate 2 hotdogs last evening and became more nauseated and then vomited. He did not feel short of breath. The patient laid down to try to sleep last night and did finally fall asleep but woke up with significant diaphoresis. He stood up and felt diffuse pain throughout his rib cage and through to his back. ROS: See above HPI for pertinent positives & negatives. A total of 10 systems reviewed and were otherwise negative. 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 HOME MEDICATIONS:None ALLERGIES:None VITALS:See Below PHYSICAL EXAMINATION: HEENT: Head - normocephalic and atraumatic Pupils are equal, round, and reactive to light. Extraocular eye muscles are intact, and sclera are anicteric. Nose - moist nasal mucosa without discharge. Mouth - moist buccal mucosa. Oropharynx is nonerythematous and there is no tonsillar exudate or edema noted. Neck: Supple; no JVD, nuchal rigidity, cervical lymphadenopathy. Heart: Tachycardic rate and regular rhythm. There is a normal S1 and S2 with no murmurs, clicks, or gallops appreciated. Lungs: Clear to auscultation bilaterally with no wheezes, rales, or rhonchi. Abdomen: Soft, completely nontender, nondistended, with good bowel sounds. There are no palpable pulsatile masses or hepatosplenomegaly. There is no guarding, rigidity, or rebound noted. Extremities: No evidence of cyanosis, clubbing, or edema. There are easily palpable peripheral pulses. Skin: warm and diaphoretic with good turgor and no rashes. ED COURSE: Times/Reassessments: 2355: The patient was emergently evaluated in room A1. A complete history and physical was performed. An order was placed for continuous cardiac monitoring. The patient was in an SVT at a rate of 220. A large-bore IV lock was initiated and labs were drawn as above. A twelve-lead EKG was obtained. Patient's blood pressure was stable. He was given 6 mg of IV adenosine which did convert him to a sinus tachycardia. A repeat EKG was obtained. A portable chest x-ray was obtained. I kept the patient abreast of his laboratory studies and x-ray results. He was found to be hypomagnesemic and was started on a magnesium drip. Because of his alcohol abuse, he was started on a banana bag. I have personally spent greater than 60 minutes of critical care time in the direct management of this patient. This includes bedside care, interpretation of diagnostic studies, and testing, discussion with consultants, patient, and family members, and other required patient management activities. This 60 minutes is in excess of all separately billable procedures. Le Hernandez DO Past Med/Surg History Medical History (Updated 03/15/20 @ 04:00 by Le Hernandez DO) No pertinent past medical history Surgical History No pertinent past surgical history S/P appendectomy S/P nasal surgery after fracture with repair of the infraorbital rim S/P wisdom tooth extraction Family History Other No pertinent family history in first degree relatives Social History (Updated 08/14/19 @ 18:09 by Burton Barone MD) Smoking Status: Never smoker Second Hand Exposure: No; Hx Alcohol Use: Yes Alcohol type: beer Hx Substance Use: No Preferred Language: Fijian Communication Ability: Effective 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 Other Information That Helps Us Care for You: No Feels Safe at Home: Yes Safety Concerns: Feels Safe At This Time Allergies Allergies Allergy/AdvReac Type Severity Reaction Status Date / Time No Known Allergies Allergy Verified 03/15/20 00:41 Home Meds Home Medications Medication Instructions Recorded Confirmed aspirin [Aspir-81] 243 mg PO ONCE 03/15/20 03/15/20 aspirin [Aspir-81] 405 mg PO ONCE 03/15/20 03/15/20 Results & Data (ED) Vital Signs Vital Signs - 24 hr 03/15/20 00:05 03/15/20 00:14 03/15/20 00:26 Temperature 37 C Temperature Source Oral Pulse Rate 221 H Pulse Rate [Right Finger] 104 H 101 H Pulse Rhythm [Right Finger] Regular Pulse Strength [Right Finger] Normal Respiratory Rate 20 18 18 Respiratory Depth Normal Normal Normal Blood Pressure 146/87 H Blood Pressure [Right Arm] 148/88 H 169/98 H Blood Pressure Mean 106 Blood Pressure Mean [Right Arm] 108 121 Blood Pressure Position Lying Blood Pressure Position [Right Arm] Lying Lying Pulse Oximetry 100 100 98 Oxygen Delivery Method Room Air Room Air Room Air Sepsis Recent Fever Within 48 Hours No Sepsis New/Unexplained Change in Mental Status No Sepsis Action Taken by Nursing No Action Required 03/15/20 00:45 03/15/20 01:00 03/15/20 01:32 Temperature Temperature Source Pulse Rate Pulse Rate [Right Finger] 99 H 98 H 100 H Pulse Rhythm [Right Finger] Regular Pulse Strength [Right Finger] Normal Respiratory Rate 16 16 18 Respiratory Depth Normal Blood Pressure Blood Pressure [Right Arm] 158/113 H 155/107 H 164/112 H Blood Pressure Mean Blood Pressure Mean [Right Arm] 128 123 129 Blood Pressure Position Blood Pressure Position [Right Arm] Lying Lying Pulse Oximetry 98 98 100 Oxygen Delivery Method Room Air Room Air Room Air Sepsis Recent Fever Within 48 Hours Sepsis New/Unexplained Change in Mental Status Sepsis Action Taken by Nursing 03/15/20 02:00 Temperature Temperature Source Pulse Rate Pulse Rate [Right Finger] 94 H Pulse Rhythm [Right Finger] Pulse Strength [Right Finger] Respiratory Rate 18 Respiratory Depth Blood Pressure Blood Pressure [Right Arm] 165/112 H Blood Pressure Mean Blood Pressure Mean [Right Arm] 129 Blood Pressure Position Blood Pressure Position [Right Arm] Pulse Oximetry 100 Oxygen Delivery Method Room Air Sepsis Recent Fever Within 48 Hours Sepsis New/Unexplained Change in Mental Status Sepsis Action Taken by Nursing Laboratory Data Result diagrams: 03/15/20 00:05 03/15/20 00:05 Lab Results 03/15/20 03/15/20 Range/Units 00:05 00:05 WBC 12.94 H (4.8-10.8) K/uL RBC 4.86 (4.7-6.1) M/uL Hgb 15.6 (14.0-18.0) g/dL Hct 45.4 (42-52) % MCV 93.4 (80-100) fL MCH 32.1 (25-34) pg MCHC 34.4 (32-36) g/dL RDW Std Deviation 45.2 (36.4-46.3) fL RDW Coeff of Javy 13.2 (11.5-14.5) % Plt Count 226 (130-400) K/uL MPV 9.7 (7.4-10.4) fL Immature Gran % (Auto) 0.2 % Neut % (Auto) 75.3 % Lymph % (Auto) 17.9 % [place] % (Auto) 6.3 % Eos % (Auto) 0.1 % Baso % (Auto) 0.2 % Neut # (Auto) 9.73 H (1.4-6.5) K/uL Lymph # (Auto) 2.32 (1.2-3.4) K/uL [place] # (Auto) 0.82 H (0.11-0.59) K/uL Eos # (Auto) 0.01 (0-0.5) K/uL Baso # (Auto) 0.03 (0-0.2) K/uL Immature Gran # (Auto) 0.03 H (0.00-0.02) K/uL Sodium 138 (136-145) mmol/L Potassium 3.2 L (3.5-5.1) mmol/L Chloride 102 (98-107) mmol/L Carbon Dioxide 24 (21-32) mmol/L Anion Gap 12.0 H (3-11) BUN 16 (7-18) mg/dl Creatinine 1.40 (0.6-1.4) mg/dl Est Cr Clr Drug Dosing 82.2 ml/min Est GFR ( Amer) 68.9 Est GFR (Non-Af Amer) 59.4 BUN/Creatinine Ratio 11.6 (10-20) Glucose 136 H (70-99) mg/dl Calcium 9.6 (8.5-10.1) mg/dl Magnesium 1.5 L (1.8-2.4) mg/dl Total Bilirubin 1.1 H (0.2-1) mg/dl AST 49 H (15-37) U/L ALT 50 (12-78) U/L Alkaline Phosphatase 50 (45-117) U/L Troponin I 0.464 H* (0-0.045) ng/ml Total Protein 7.7 (6.4-8.2) gm/dl Albumin 3.8 (3.4-5.0) gm/dl Globulin 3.9 (2.5-4.0) gm/dl Albumin/Globulin Ratio 1.0 (0.9-2) TSH 1.940 (0.300-4.500) uIu/ml Administered Medications Potassium Chloride (K Ritesh / Wtr) 10 meq in 100 mls @ 100 mls/hr IV Q1H VINAY Stop: 03/15/20 05:59 Last Admin: 03/15/20 03:17 Dose: 100 mls/hr Documented by: [id number] Infusion: 03/15/20 03:17 Dose: 100 mls/hr Documented by: [id number] Admin: 03/15/20 02:32 Dose: 100 mls/hr Documented by: [id number] Potassium Chloride (Potassium Chloride 20 Meq Tabcr) 20 meq PO Q4H VINAY Stop: 04/14/20 02:43 Last Admin: 03/15/20 03:28 Dose: 20 meq Documented by: [id number] Discontinued Medications Adenosine (Adenosine Iv Soln 3 Mg/Ml 2 Ml Vial) Confirm Administered Dose 30 mg IV .STK-MED ONE Stop: 03/15/20 00:11 Last Admin: 03/15/20 00:24 Dose: 6 mg Documented by: [id number] Sodium Chloride (Nss) 500 mls @ 999 mls/hr IV .Q31M VINAY Stop: 03/15/20 01:00 Last Infusion: 03/15/20 01:22 Dose: 0 mls/hr Documented by: [id number] Admin: 03/15/20 00:25 Dose: 999 mls/hr Documented by: [id number] Multivitamins 10 ml/ Thiamine HCl 100 mg/ Folic Acid 1 mg/Sodium Chloride 1,011.2 mls @ 1,011.2 mls/hr IV .Q1H ONE Stop: 03/15/20 01:21 Last Infusion: 03/15/20 01:46 Dose: 0 mls/hr Documented by: [id number] Admin: 03/15/20 00:46 Dose: 1,011.2 mls/hr Documented by: [id number] Magnesium Sulfate/Dextrose (Magnesium Sulfate / D5w) 1 gm in 100 mls @ 100 mls/hr IV NOW STA Stop: 03/15/20 02:19 Last Infusion: 03/15/20 02:29 Dose: 0 mls/hr Documented by: [id number] Admin: 03/15/20 01:29 Dose: 100 mls/hr Documented by: [id number] Lorazepam (Ativan) 1 mg in 2 mls @ 2 mls/min IV NOW STA Stop: 03/15/20 01:59 Last Admin: 03/15/20 02:10 Dose: 2 mls/min Documented by: [id number] Magnesium Sulfate/Dextrose (Magnesium Sulfate / D5w) 1 gm in 100 mls @ 100 mls/hr IV NOW STA Stop: 03/15/20 03:00 Last Infusion: 03/15/20 03:10 Dose: 0 mls/hr Documented by: [id number] Admin: 03/15/20 02:10 Dose: 100 mls/hr Documented by: [id number] Magnesium Oxide (Magnesium Oxide 400 Mg Tab) 400 mg PO ONE ONE Stop: 03/15/20 02:45 Last Admin: 03/15/20 03:17 Dose: 400 mg Documented by: [id number] Discharge Plan Visit Data Chief Complaint: Cardiac Assessment Stated Complaint: COLD SWEAT,CHEST TIGHTNESS INTO BACK ED Provider: Le Hernandez Discharge Problem: SVT (supraventricular tachycardia), Hypomagnesemia, Elevated troponin I level Patient Disposition: Admitted As Inpatient Discharge Instructions Interventions: ED Discharge Assessment Last Done: 03/15/20 02:29
[2020-03-15] MEDS ORDERED: LORazepam 1 MG/2 ML VIAL IV STA (01:58)
--- NOTE | 2020-03-15 02:04 | History & Physical Report ---
Date of Service March 15, 2020 Assessment & Plan (1) SVT (supraventricular tachycardia): Seth is a 49-year-old male with a history of alcohol abuse who presents with an episode of SVT with evidence of inferolateral ischemia. SVT with demand ischemia Patient in SVT with rate of 219 on admission, inferior/lateral depressions on EKG SVT broke with 1 round of adenosine, repeat EKG show improving ST depressions Troponin elevated 0.464, likely demand from SVT Trend troponin Cardiology consulted TTE ordered Suspect 2/2 alcohol withdrawal versus hypokalemia/hypomagnesemia Electrolytes repleted as below Alcohol abuse Patient reports 5 day/week drinking history, and recently drank from Thursday morning into Thursday night. He reports that he sometimes gets shakes/tremors after he stops drinking, these go away after a few days and can be mitigated with a few drinks (occasionally self tapers) Patient expresses good insight into the fact that he drinks a very high amount and that this is harmful to his health, expresses a desire to quit Patient tremulous on exam in the ED, suspect active withdrawal with last drink approximately 30 hours ago Medical alcohol, UDS ordered AWSS protocol Thiamine daily Banana bag ordered Hypokalemia/hypomagnesemia K riders plus oral repletion ordered IV mag x1, Mag-Ox twice daily CMP daily Transaminitis Suspect 2/2 liver changes and alcohol CMP daily Liver ultrasound ordered DVT prophylaxis: SCDs Diet: Regular Disposition: PCU on REJI S CODE STATUS: Full code (2) Elevated transaminase level: (3) Alcohol abuse: History of Present Illness Chief Complaint: chest pain Primary Care Provider: NO PCP Seth is a 49-year-old male with a history of alcohol abuse and no past cardi ac history who presents with tremulousness, diaphoresis, and SVT with ST depressions. He reports his symptoms began Thursday morning at 6:54 AM when he felt like he had indigestion and needed to burp but could not. This persisted throughout the day, he ate 2 hotdogs and then had not bloody nonbilious emesis. He laid down and felt diaphoretic. He woke up around 9 PM after laying down to sleep and had another episode of diaphoresis but noted that his torso ached. He took 381 mg aspirins then laid down and went back to sleep. He woke up once again at 11 PM the night prior to admission and was "covered in sweat and the chest pain had spread both front and back and was in the center of the chest "causing him to present to the emergency department. He denies any shortness of breath or dy spnea with this episode. He has not had any prior chest pain, angina, or crescendo angina. He denies any history of arrhythmia. 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 He reports that he does not use tobacco products or recreational drugs, but has a high alcohol intake. Endorses "a long time "of drinking 5-6 times per week, and often binge drinks and a large amount. Reports this past week he started drinking Thursday in the morning and continuously drank until Thursday in the evening. He felt tremulous to drink a little less on Thursday. He notes that with drinking in the past he has sometimes felt tremulous after stopping, and will sometimes have white clock to help reduce tremors and then he feels okay after few days. Has never had a seizure. He last went without alcohol for 6 weeks in July after his hernia surgery. His last drink was 37 hours ago. History: Reviewed Surgical history: Reviewed Medications: Reviewed, no chronic medications Allergies: Reviewed CODE STATUS: Full code Social: As above. Lives female roommate, no one sick in the home Allergies Allergy/AdvReac Type Severity Reaction Status Date / Time No Known Allergies Allergy Verified 03/15/20 00:41 Home Medications Home Medications Medication Instructions Recorded Confirmed Type aspirin [Aspir-81] 243 mg PO ONCE 03/15/20 03/15/20 History aspirin [Aspir-81] 405 mg PO ONCE 03/15/20 03/15/20 History Past Med/Surg History Medical History No pertinent past medical history Surgical History No pertinent past surgical history S/P appendectomy S/P nasal surgery after fracture with repair of the infraorbital rim S/P wisdom tooth extraction Family History Other No pertinent family history in first degree relatives Social History Smoking Status: Never smoker Second Hand Exposure: No; Hx Alcohol Use: Yes Alcohol type: beer Hx Substance Use: No Preferred Language: Omani Communication Ability: Effective Tire Tester Required: No Beliefs That Will Affect Care: None Current Living Situation: Other Current Living Situation Comment: Roommate with child. Other Information That Helps Us Care for You: No Feels Safe at Home: Yes Safety Concerns: Feels Safe At This Time Review of Systems Review of Systems: All systems reviewed & are unremarkable except as noted in HPI & below Physical Exam Physical Exam: General: A&Ox3. Tremulous. HEENT: Atraumatic, normocephalic. Pulm: CTAB A&P. -wheezes, -rales, -rhonchi. Symmetrical chest rise. No increase work of breathing. No respiratory distress. Cardiac: tachycardic, -mrg. Radial pulses intact and symmetrical. Abdominal: Nontender, nondistended, soft. BS present. CN II: Visual avendaño are full to confrontation. Pupils are equal and react to light and accomidation. Visual acuity grossly intact. CN III, IV, : At primary gaze, there is no eye deviation. EoM intact without nystagmus. No visual field cuts. CN V: Facial sensation is intact to soft touch in all 3 divisions bilaterally. CN VII: No facial asymmetry, full strength to eyebrow raise, smile, eye close, and cheek puff. CN VII: Hearing is grossly intact. CN IX, X: Phonation is normal without dysarthria. CN XI: Head turning and shoulder shrug are intact CN XII: Tongue protrudes midline. Sensory: Light touch in upper and low extremities without deficit or asymmetry. Strength: RUE: Shoulder flexion/extension/internal rotation/external rotation, elbow flexion/extension, finger flexion/extension, securities and real estate director strength, interosseous 5/5 LUE: Shoulder flexion/extension/internal rotation/external rotation, elbow flexion/extension, finger flexion/extension, securities and real estate director strength, interosseous 5/5 RLE: Hip flexion, knee flexion/extension, ankle plantar flexion/dorsiflexion 5/5 LLE: Hip flexion, knee flexion/extension, ankle plantar flexion/dorsiflexion 5/5 Results & Data Results & Data ([facility]) Vital Signs (Past 12 Hours) Vital Signs Temp Pulse Pulse Resp BP BP Pulse Ox 03/15/20 01:32 100 H 18 164/112 H 100 03/15/20 01:00 98 H 16 155/107 H 98 03/15/20 00:45 99 H 16 158/113 H 98 03/15/20 00:26 101 H 18 169/98 H 98 03/15/20 00:14 104 H 18 148/88 H 100 03/15/20 00:05 37 C 221 H 20 146/87 H 100 Supervising Physician Co-Signing Physician Notes Attending addendum: I have physically seen this patient, have supervised the medical residents jessica sanchez, and agree with the H&P unless as otherwise noted. Assessment and Plan: SVT/rate dependent ischemia- The patient will be admitted to telemetry for serial cardiac enzymes, serial EKG's, cardiac rhythm monitoring and a 2-D echocardiogram with Dopplers. Initial heart rate 219, which resolved with adenosine 6 mg IV. Initial troponin 0 0.464 Check a fasting lipid panel and hemoglobin A1c Aspirin 81 mg daily consult cardiology Optimize potassium and magnesium both orally and IV and follow laboratory serially. Consult cardiology Alcohol abuse- AWSS protocol Long discussion with patient regarding importance of cessation. Placed on folic acid 1 mg p.o. daily and thiamine daily Received a banana bag in ED Abnormal LFTs- Order ultrasound to assess for possible fatty liver/cirrhosis. Remainder of orders and notations as noted Resident Activity Tracking Resident Involvement: Resident Care Provided Care Provided: Adult Hospital Medicine
[2020-03-15] MEDS: POTASSIUM CHLORIDE / WTR 10 MEQ/100 ML PLCT IV SCH ×4 (02:32→05:38)
[2020-03-15] MEDS ORDERED: NITROGLYCERIN SL 0.4 MG/TAB TAB SL PRN (02:44)
[2020-03-15] MEDS ORDERED: MAGNESIUM OXIDE 400 MG TAB PO ONE (02:44)
[2020-03-15] MEDS ORDERED: ONDANSETRON INJ 2 MG/ML 2 ML VIAL IV PRN (02:44)
[2020-03-15] MEDS: POTASSIUM CHLORIDE 20 MEQ TABCR PO SCH ×3 (03:28→12:24)
[2020-03-15 06:04] LABS: Troponin I 0.405 ng/ml (0-0.045)
--- NOTE | 2020-03-15 07:04 | XRay Report ---
XR chest 1V portable CLINICAL HISTORY: svt COMPARISON STUDY: No previous studies for comparison. FINDINGS: Lung volumes are normal. Lungs are clear. There is no pneumothorax or pleural effusion. Mil d enlargement of the cardiac silhouette is noted. Mediastinal contours are normal. There is no eviden ce for pulmonary edema. IMPRESSION: No acute cardiopulmonary findings. ACT 112: Negative or not required by law. Electronically signed by: Abram Cardona M.D. 03/15/2020 7:03 AM
--- NOTE | 2020-03-15 07:14 | Ultrasound Report ---
US liver CLINICAL HISTORY: Elevated liver function tests COMPARISON STUDY: CT scan dated 08/14/2019 FINDINGS: The liver is of increased echogenicity, consistent with hepatic steatosis. No focal masses are visualized. The gallbladder contains echogenic sludge. There is no gallbladder wall thickening. T he technologist reports a negative sonographic Zhong sign. The common bile duct measures 4 mm. No pancreatic abnormalities are visualized. There is no evidence for right-sided hydronephrosis. IMPRESSION: 1. Increased hepatic echogenicity, likely secondary to hepatic steatosis 2. Gallbladder sludge but no shadowing calculi identified 3. No evidence of ductal dilatation ACT 112: Negative or not required by law. Electronically signed by: Steve Mauricio M.D. 03/15/2020 7:12 AM
[2020-03-15] MEDS ORDERED: GABAPENTIN 1200MG ALCOHOL WITHDRAWAL LOAD PO STA (07:22)
[2020-03-15] MEDS: FOLIC ACID 1 MG TAB PO SCH (07:59)
[2020-03-15] MEDS: THIAMINE HCL 100 MG TAB PO SCH (07:59)
[2020-03-15] MEDS ORDERED: GABAPENTIN 600 MG TAB PO ONE (08:00)
[2020-03-15] MEDS: MAGNESIUM OXIDE 400 MG TAB PO SCH ×2 (08:02→20:19)
[2020-03-15] MEDS: LORazepam 1 MG TAB PO PRN ×5 (08:02→23:44)
[2020-03-15 09:25] LABS: Amphetamines+Metham, Urine Neg (Neg); Barbiturates, Urine Neg (Neg); Benzodiazepine, Urine Neg (Neg); Cocaine, Urine Neg (Neg); MDMA (Ecstacy), Urine Neg (Neg); Methadone, Urine Neg (Neg); Opiate, Urine Neg (Neg); Phencyclidine, Urine Neg (Neg)
--- NOTE | 2020-03-15 09:43 | XCELERA ---
[id number]
--- NOTE | 2020-03-15 10:26 | Student Report ---
[facility] Student Progress Note Date of Service Date of service: March 15, 2020 Subjective Subjective: Feeling back to baseline. Denies chest pain, palpitations, diaphoresis, SOB. Does still endorse epigastric discomfort, although it is impr jm. Ate breakfast and epigastric pain was neither exacerbated or improved. Denies recurrent pain associated with eating. Urinating but appears concentrated. Has not noticed melena or hematochezia. Denies nausea/ vomiting. Had one episode of emesis prior to presentation in ED. He had just eaten ketchup, so vomit was red, but did not notice coffee ground emesis. Says he is motivated to cut down on alcohol and will consider resources offered by his employer, [employer]. ROS ROS: See HPI Physical Exam Physical Exam: GENERAL: pleasant, wdwg, nad HEENT: atraumatic, conjunctiva without injection b/l, external nose and pinna are normal CHEST: cta bilaterally with no wheezes, rhonchi or rales, good air movement with normal respiratory effort CARDIOVASCULAR: heart regular rate and rhythm, no murmurs, gallops or rubs, no lower extremity edema 2+ pedal pulses ABD: no hepatosplenomegaly or masses, nontender to palpation, nondistended, normal active bowel sounds SKIN: no rashes or suspicious lesions noted PSYCH: alert and oriented x 3, speech nl rate and volume, thought process linear, affect appropriate for situation A&P A&P: (1) SVT (supraventricular tachycardia): -SVT with demand ischemia Patient in SVT with rate of 219 on admission, inferior/lateral depressions on EKG SVT broke with 1 round of adenosine, repeat EKG show improving ST depressions Cardiology consulted 1. Jennings possible this episode was precipitated by a higher adrenergic state due to mild alcohol withdrawal and acute change in position. 2. Does not believe he requires any specific treatment. 3. If he continues to have symptoms of SVT would advocate catheter based therapy TTE suggestive of cardiomyopathy as below Electrolytes repleted as below - Elevated troponin as below (2) Elevated troponin Troponin elevated 0.464, repeat 0.405. Continue trending -Cardiology felt symptoms not consistent with acute coronary syndrome 1. likely that he had an SVT for an extended period. 2. elevated biomarkers are likely related to a supply demand mismatch. 3. advocates for traditional cardiovascular risk factor modification. (3) Alcohol abuse Patient reports 5 day/week drinking history, and recently drank from Thursday morning into Thursday night. He reports that he sometimes gets shakes/tremors after he stops drinking, these go away after a few days and can be mitigated with a few drinks (occasionally self tapers) Patient expresses good insight into the fact that he drinks a very high amount and that this is harmful to his health, expresses a desire to quit. Interested in utilizing resources availble to [facility] employees. Will refer to [facility] resources. Patient does not appear in active withdrawal at this time UDS negative AWSS protocol Thiamine daily (4) Hypokalemia/hypomagnesemia K riders discontinued IV mag x1, Mag-Ox twice daily CMP daily, WNL 03/15 (5) Transaminitis Suspect 2/2 liver changes and alcohol CMP daily Liver ultrasound: 1. Increased hepatic echogenicity, likely secondary to hepatic steatosis 2. Gallbladder sludge but no shadowing calculi identified 3. No evidence of ductal dilatation -NAF. Encouraged abstinace (6) Cardiomyopathy -TTE completed showed concentric LV hypertrophy -Cardiology felt LV function appears compromised. 1. Thinks the most likely etiology is simply heavy alcohol use 2. Abstinence would be the best option 3. Given his slightly elevated blood pressures he may benefit from medical therapy. 4. Recommends initiation of the carvedilol in the absence of additional contraindications. Alternative actively lisinopril or ARB could be considered. 5. requires close follow-up in the cardiology clinic to reassess any symptoms and address the reduced LV function. - Will schedule cardiology f/u at discharge DVT prophylaxis: SCDs Diet: Regular Disposition: PCU on REJI S CODE STATUS: Full code
--- NOTE | 2020-03-15 12:07 | Cardiology Consultation ---
Date of Consultation March 15, 2020 Assessment & Plan (1) SVT (supraventricular tachycardia): he had a narrow complex tachycardia at the time of admission which responded to adenosine. This would suggestive reentrant mechanism. He cannot recall other episodes of high heart rates or paroxysmal tachycardia. It is possible this episode was precipitated by a higher adrenergic state due to mild alcohol withdrawal and acute change in position. I suspect that some of his more severe symptoms were related to the higher heart rate as they seem to resolve once his rhythm returned to normal. I do not believe he requires any specific treatment. We did go over options for treatment which would include medical therapy or catheter based therapy. Perhaps if he were to reduce his alcohol use he could avoid additional episodes. I do not believe he requires any specific treatment or evaluation currently. If he continues to have symptoms of SVT would advocate catheter based therapy. (2) Elevated troponin I level: I do not believe his symptoms were consistent with an acute coronary syndrome. He is not appear to have symptoms of angina or coronary insufficiency at baseline and is able to perform a reasonable workload. He presented with relatively elevated blood pressures in a very high heart rate. It is likely that he had an SVT for an extended period. I think his elevated biomarkers are likely related to a supply demand mismatch. I would advocate traditional cardiovascular risk factor modification. (3) Alcohol abuse: (4) Cardiomyopathy: Overall LV function appears compromised. Think the most likely etiology is simply heavy alcohol use. He seems interested in reducing alcohol use. This would be my recommendation as well. Abstinence would be the best option. Given his slightly elevated blood pressures he may benefit from medical therapy. I would advocate initiation of the carvedilol in the absence of additional contraindications. Alternative actively lisinopril or ARB could be considered. I think he requires close follow-up in the cardiology clinic to reassess any symptoms and address the reduced LV function. History of Present Illness Reason for Consultation: SVT, elevated troponin Requesting Physician: Sergio Attending Physician: Maciel Kelley DO History of Present Illness the patient is a 49-year-old gentleman without a known history of cardiac disease who presented to the emergency room yesterday with an elevated heart rate. Patient states that early yesterday morning he had a sense of abdominal bloating. The patient felt that he needed to burp, but could not make himself burp. He did not have significant abdominal discomfort at that time. He elected to go to work and actually felt well during working hours. However upon returning home that evening and attempting to eat his abdominal distention worsened and he had an episode of vomiting. The patient then assumed a recumbent position and noticed an acute worsening of his abdominal discomfort. This generalized to include most of his abdomen and Lower back as well. He had marked diaphoresis at that point in time. He decided to sit upright which alleviated some of his symptoms. He did not seek any care immediately and attempted to monitor his symptoms at home but shortly later again assumed a recumbent position and had acute worsening of his symptoms. This also included worsening abdominal discomfort, some pleuritic chest discomfort and diaphoresis. He elected to seek medical attention and presented to the emergency room where he was also discovered to have an SVT. Patient was administered adenosine and did have resolution of most of his symptoms at that point. He did not report feeling dizzy. He did not report presyncope. He cannot recall similar symptoms in the past. In general he is an active individual. His occupation requires him to walk long distances every day. He generally does not have difficulty with activity. He cannot recall any exertional chest discomfort or limiting dyspnea. He cannot recall other episodes of Sustained palpitations or tachycardia. He does report an occasional "flutter" or skipped beat, but this is rare and fleeting. He did have an umbilical hernia repair previously. He did not experience similar symptoms with that episode. Currently he is feeling well. He does not appear to have any abdominal distention or discomfort. He was able to tolerate breakfast without any difficulty. Allergies Allergy/AdvReac Type Severity Reaction Status Date / Time No Known Allergies Allergy Verified 03/15/20 00:41 Home Medications Home Medications Medication Instructions Recorded Confirmed Type aspirin [Aspir-81] 243 mg PO ONCE 03/15/20 03/15/20 History aspirin [Aspir-81] 405 mg PO ONCE 03/15/20 03/15/20 History Patient History Medical History No pertinent past medical history Surgical History No pertinent past surgical history S/P appendectomy S/P nasal surgery after fracture with repair of the infraorbital rim S/P wisdom tooth extraction Family History Other No pertinent family history in first degree relatives Social History Smoking Status: Never smoker Second Hand Exposure: No; Hx Alcohol Use: Yes Alcohol type: beer Hx Substance Use: No Preferred Language: [place] Communication Ability: Effective [employer] Required: No Beliefs That Will Affect Care: None Current Living Situation: Other Current Living Situation Comment: Roommate with child. Other Information That Helps Us Care for You: No Feels Safe at Home: Yes Safety Concerns: Feels Safe At This Time Review of Systems Review of Systems: All systems reviewed & are unremarkable except as noted in HPI & below Significant alcohol use as documented elsewhere. Physical Exam Physical Exam: The patient is alert and oriented. Mood and affect appeared normal. He answered all questions appropriately. HEENT: Pupils are equal and reactive to light and accommodation. Extraocular movements are intact. The sclerae are anicteric. Neuro: Cranial nerves intact Neck: Patient's neck is supple. He has palpable carotid pulses bilaterally without bruits on auscultation. There is no evidence of jugular venous distention. The thyroid is not enlarged. Lungs: Clear to auscultation bilaterally. He has good air movement without use of accessory muscles. No rales wheezes or rhonchi. Cardiac: Heart demonstrates a regular rate and rhythm. Normal S1 and S2. No murmurs on examination. Pulses: The patient has palpable radial pulses bilaterally that are equal in intensity Extremities: There was no evidence of hypoperfusion. There is no cyanosis or clubbing. There is no edema. Skin: I did not appreciate any rashes on examination today. Results & Data ([facility]) Vital Signs (Past 12 Hours) Vital Signs Temp Pulse Pulse Resp BP BP Pulse Ox 03/15/20 07:46 99 H 18 164/116 H 98 03/15/20 07:40 102 H 27 H 03/15/20 07:30 96 H 23 03/15/20 07:21 90 24 03/15/20 07:10 94 H 17 03/15/20 07:00 37 C 86 20 03/15/20 06:00 90 18 03/15/20 05:00 89 18 03/15/20 04:05 37.5 C 90 20 156/106 H 97 03/15/20 03:00 94 H 03/15/20 02:45 37.6 C H 101 H 18 168/110 H 96 03/15/20 02:29 96 H 16 160/110 H 99 03/15/20 02:00 94 H 18 165/112 H 100 03/15/20 01:32 100 H 18 164/112 H 100 03/15/20 01:00 98 H 16 155/107 H 98 03/15/20 00:45 99 H 16 158/113 H 98 03/15/20 00:26 101 H 18 169/98 H 98 03/15/20 00:14 104 H 18 148/88 H 100 03/15/20 00:05 37 C 221 H 20 146/87 H 100 Laboratory Results Abnormal Lab Results 03/15/20 03/15/20 03/15/20 00:05 00:05 03:15 WBC 12.94 H RBC 4.86 Hgb 15.6 Hct 45.4 MCV 93.4 MCH 32.1 MCHC 34.4 RDW Std Deviation 45.2 RDW Coeff of Javy 13.2 Plt Count 226 MPV 9.7 Immature Gran % (Auto) 0.2 Neut % (Auto) 75.3 Lymph % (Auto) 17.9 [place] % (Auto) 6.3 Eos % (Auto) 0.1 Baso % (Auto) 0.2 Neut # (Auto) 9.73 H Lymph # (Auto) 2.32 [place] # (Auto) 0.82 H Eos # (Auto) 0.01 Baso # (Auto) 0.03 Immature Gran # (Auto) 0.03 H Sodium 138 Potassium 3.2 L Chloride 102 Carbon Dioxide 24 Anion Gap 12.0 H BUN 16 Creatinine 1.40 Est Cr Clr Drug Dosing 82.2 Est GFR ( Amer) 68.9 Est GFR (Non-Af Amer) 59.4 BUN/Creatinine Ratio 11.6 Glucose 136 H Calcium 9.6 Magnesium 1.5 L Total Bilirubin 1.1 H AST 49 H ALT 50 Alkaline Phosphatase 50 Troponin I 0.464 H* Total Protein 7.7 Albumin 3.8 Globulin 3.9 Albumin/Globulin Ratio 1.0 Triglycerides Cholesterol LDL Cholesterol, Calc VLDL Cholesterol, Calc HDL Cholesterol Cholesterol/HDL Ratio Folate TSH 1.940 Nasal Screen MRSA (PCR) Negative Urine Opiates Screen Ur Methadone, Qual Urine Barbiturates Ur Phencyclidine (PCP) U Amphetamin/Meth Scrn MDMA (Ecstasy) Screen U Benzodiazepines Scrn Ur Cocaine Metabolite U Marijuana (THC) Screen Ethyl Alcohol mg/dL 03/15/20 03/15/20 03/15/20 05:12 05:12 05:12 WBC RBC Hgb Hct MCV MCH MCHC RDW Std Deviation RDW Coeff of Javy Plt Count MPV Immature Gran % (Auto) Neut % (Auto) Lymph % (Auto) [place] % (Auto) Eos % (Auto) Baso % (Auto) Neut # (Auto) Lymph # (Auto) [place] # (Auto) Eos # (Auto) Baso # (Auto) Immature Gran # (Auto) Sodium Potassium Chloride Carbon Dioxide Anion Gap BUN Creatinine Est Cr Clr Drug Dosing Est GFR ( Amer) Est GFR (Non-Af Amer) BUN/Creatinine Ratio Glucose Calcium Magnesium Total Bilirubin AST ALT Alkaline Phosphatase Troponin I 0.405 H* Total Protein Albumin Globulin Albumin/Globulin Ratio Triglycerides 95 Cholesterol 201 H LDL Cholesterol, Calc 105 VLDL Cholesterol, Calc 19 HDL Cholesterol 77 Cholesterol/HDL Ratio 3 Folate > 24.00 TSH Nasal Screen MRSA (PCR) Urine Opiates Screen Ur Methadone, Qual Urine Barbiturates Ur Phencyclidine (PCP) U Amphetamin/Meth Scrn MDMA (Ecstasy) Screen U Benzodiazepines Scrn Ur Cocaine Metabolite U Marijuana (THC) Screen Ethyl Alcohol mg/dL < 3.0 03/15/20 08:00 WBC RBC Hgb Hct MCV MCH MCHC RDW Std Deviation RDW Coeff of Javy Plt Count MPV Immature Gran % (Auto) Neut % (Auto) Lymph % (Auto) [place] % (Auto) Eos % (Auto) Baso % (Auto) Neut # (Auto) Lymph # (Auto) [place] # (Auto) Eos # (Auto) Baso # (Auto) Immature Gran # (Auto) Sodium Potassium Chloride Carbon Dioxide Anion Gap BUN Creatinine Est Cr Clr Drug Dosing Est GFR ( Amer) Est GFR (Non-Af Amer) BUN/Creatinine Ratio Glucose Calcium Magnesium Total Bilirubin AST ALT Alkaline Phosphatase Troponin I Total Protein Albumin Globulin Albumin/Globulin Ratio Triglycerides Cholesterol LDL Cholesterol, Calc VLDL Cholesterol, Calc HDL Cholesterol Cholesterol/HDL Ratio Folate TSH Nasal Screen MRSA (PCR) Urine Opiates Screen Neg Ur Methadone, Qual Neg Urine Barbiturates Neg Ur Phencyclidine (PCP) Neg U Amphetamin/Meth Scrn Neg MDMA (Ecstasy) Screen Neg U Benzodiazepines Scrn Neg Ur Cocaine Metabolite Neg U Marijuana (THC) Screen Neg Ethyl Alcohol mg/dL Diagnostic Findings CT scan obtained at time admission was suggestive partial small-bowel obstruction echocardiogram obtained today revealed mildly reduced LV systolic function which is global. No regional wall motion abnormalities. No significant valvular heart disease ECG Additional Comments: EKG available for review reveals sinus tachycardia with nonspecific ST and T-wave changes PG Care Time/CCT Total # of Minutes Spent Total Time Spent with Patient: Total time spent is greater than 50% in coordination of care (as documented) at patient's floor/unit and/or counseling patient: Coding Level of Care Code 02699 Inpt Consult Level 4 Diagnoses SVT (supraventricular tachycardia) I47.1 Elevated troponin I level R79.89 Alcohol abuse F10.10 Cardiomyopathy I42.9
[2020-03-15] MEDS: PANTOprazole 40 MG TAB PO SCH (12:14)
[2020-03-15 13:33] LABS: BUN Creatinine Ratio 11.6 (10-20); Calcium 8.6 mg/dl (8.5-10.1); Creatinine Clr Calc Pharmacy 114.4 ml/min; Est GFR (African American) 103.4; Est GFR (Non-African American) 89.2; Magnesium 2.4 mg/dl (1.8-2.4); Phosphorus 2.5 mg/dl (2.5-4.9); Potassium 4.2 mmol/L (3.5-5.1); Troponin I 1.09 ng/ml (0-0.045)
[2020-03-15] MEDS: GABAPENTIN 600 MG TAB PO SCH ×2 (15:17→20:19)
--- NOTE | 2020-03-15 15:55 | Hospitalist Progress Note ---
Date of Service March 15, 2020 Assessment & Plan (1) Alcohol withdrawal: heavy drinking history, at least 6-8 drinks on most nights, likely every night recent heavy binge episode 5 days ago now with no alcohol for over 48 hours has hypertension, tachycardia, tachypnea, mild tremors will use Gabapentin taper, start with 1200mg use Ativan PO based on withdrawal scale keep on tele for close monitoring (2) SVT (supraventricular tachycardia): HR in the 200's on admission, resolved with one dose of Adenosine no further issues on monitor, has sinus tachycardia d/w Dr. Cody, likely triggered by stress, heavy drinking recently he will follow patient in clinic (3) Alcohol abuse: very heavy alcohol use, lives by himself, could be drinking more than he lets on at least 6-8 drinks a day with evidence of alcohol induced cardiomyopathy has steatosis on liver US serious discussion with patient today about quitting, he says he is interested he understands that he will only cause more damage to his liver and heart will ask for community resources when discharged (4) Elevated transaminase level: due to recent alcohol binge will follow up tomorrow (5) Cardiomyopathy: EF 45%, LV is generally hypokinetic, no wall motion abnormalities should improve if he stops drinking examines euvolemic (6) Elevated troponin I level: represents cardiac demand ischemia from his HR in the 200's for some time troponin up to 1.0 from [address] Cody, will repeat troponin in the morning, highly doubtful for CAD 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, 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, he never gets angina or dyspnea Admission and Anticipated Discharge Date Admission Date: March 15, 2020 Subjective patient very sleeping this afternoon, says he is having a hard time keeping his eyes open discussed that he got 1200mg of Gabapentin which would definitely make him drowsy no further runs of SVT on the monitor since he got Adenosine in the ED he denies any chest pain or pressure, breathing well, no fever/chills he strongly denies any symptoms of alcohol withdrawal, although he has a subtle tremor he is eating really well, ate all his breakfast and lunch, says he has not eaten well for 3 days prior to admission discussed with Dr. Cody, he feels that the drinking and then possible GI distress triggered the SVT no concerns for coronary disease, troponin bumped from 0.4 to 1.0 but likely demand ischemia with HR in the 200's on admission his echo shows mild cardiomyopathy with EF 45% discussed in detail his alcohol abuse, he says that he drinks most nights, not every night he normally drinks 6-8 alcoholic seltzer drinks but occasionally he will drink hard liquor he says this past weekend he drank a fifth of liquor both on Thursday night and then again on Thursday he says he felt bad on Thursday so he cut back to 1/5 a fifth and then on Thursday he had 1/4 a fifth he did not have a drink for two days prior to admission due to feeling generally unwell in his stomach he says he has the power to cut back on his drinking, when he is around his family he hardly drinks at all because he doesn't want them to know he has an issue we talked about his liver US with evidence of steatosis, told him to consider this a warning sign he agrees to use services to help him quit on discharge Review of Systems 2 Review of Systems: All systems reviewed & are unremarkable except as noted in Subjective Physical Exam Constitutional: well developed and well nourished; no acute distress Eyes: PERRL, conjunctivae normal, anicteric sclerae ENMT: external ear and nose normal, oropharynx normal Neck: trachea midline, no thyromegaly Respiratory: normal respiratory effort and + tachypneic; no respiratory distress and no cough Cardiovascular: Rate/Rhythm: regular rhythm and + tachycardic Heart Sounds: normal S1 and normal S2; no murmur Vessels: no JVD Extremities: normal capillary refill; no edema Gastrointestinal (Abdomen): normal bowel sounds, soft, nontender, no hepatosplenomegaly Musculoskeletal: no cyanosis or clubbing, extremities motor strength 5/5 Skin: no rashes, warm and dry Neurologic: patellar DTR's 2+ bilat, sensation intact and PERRL, EOMI, accommodation nl, no face palsy, no dysarthria no focal motor deficits Motor/Sensory: + tremor (mild, bilaterally) Psychiatric: Orientation: alert and oriented x 3 Affect: + flat affect Mood: + depressed mood Lymphatic: no cervical or axillary lymphadenopathy Results & Data Results & Data ([facility]) Vital Signs (Past 12 Hours) Vital Signs Temp Pulse Resp BP Pulse Ox 03/15/20 12:01 113 H 25 H 03/15/20 11:55 37.9 C H 106 H 27 H 160/108 H 03/15/20 11:01 93 H 21 03/15/20 10:01 91 H 21 03/15/20 09:00 101 H 22 03/15/20 08:00 93 H 27 H 98 03/15/20 07:54 104 H 23 03/15/20 07:46 99 H 18 164/116 H 98 03/15/20 07:40 102 H 27 H 03/15/20 07:30 96 H 23 03/15/20 07:21 90 24 03/15/20 07:10 94 H 17 03/15/20 07:00 37 C 86 20 03/15/20 06:00 90 18 03/15/20 05:00 89 18 03/15/20 04:05 37.5 C 90 20 156/106 H 97 Laboratory Results Laboratory Results - last 24 hr 03/15/20 03/15/20 03/15/20 00:05 00:05 03:15 WBC 12.94 H RBC 4.86 Hgb 15.6 Hct 45.4 MCV 93.4 MCH 32.1 MCHC 34.4 RDW Std Deviation 45.2 RDW Coeff of Javy 13.2 Plt Count 226 MPV 9.7 Immature Gran % (Auto) 0.2 Neut % (Auto) 75.3 Lymph % (Auto) 17.9 Doddridge % (Auto) 6.3 Eos % (Auto) 0.1 Baso % (Auto) 0.2 Neut # (Auto) 9.73 H Lymph # (Auto) 2.32 Doddridge # (Auto) 0.82 H Eos # (Auto) 0.01 Baso # (Auto) 0.03 Immature Gran # (Auto) 0.03 H Sodium 138 Potassium 3.2 L Chloride 102 Carbon Dioxide 24 Anion Gap 12.0 H BUN 16 Creatinine 1.40 Est Cr Clr Drug Dosing 82.2 Est GFR ( Amer) 68.9 Est GFR (Non-Af Amer) 59.4 BUN/Creatinine Ratio 11.6 Glucose 136 H Calcium 9.6 Phosphorus Magnesium 1.5 L Total Bilirubin 1.1 H AST 49 H ALT 50 Alkaline Phosphatase 50 Troponin I 0.464 H* Total Protein 7.7 Albumin 3.8 Globulin 3.9 Albumin/Globulin Ratio 1.0 Triglycerides Cholesterol LDL Cholesterol, Calc VLDL Cholesterol, Calc HDL Cholesterol Cholesterol/HDL Ratio Folate TSH 1.940 Nasal Screen MRSA (PCR) Negative Urine Opiates Screen Ur Methadone, Qual Urine Barbiturates Ur Phencyclidine (PCP) U Amphetamin/Meth Scrn MDMA (Ecstasy) Screen U Benzodiazepines Scrn Ur Cocaine Metabolite U Marijuana (THC) Screen Ethyl Alcohol mg/dL 03/15/20 03/15/20 03/15/20 05:12 05:12 05:12 WBC RBC Hgb Hct MCV MCH MCHC RDW Std Deviation RDW Coeff of Javy Plt Count MPV Immature Gran % (Auto) Neut % (Auto) Lymph % (Auto) Doddridge % (Auto) Eos % (Auto) Baso % (Auto) Neut # (Auto) Lymph # (Auto) Doddridge # (Auto) Eos # (Auto) Baso # (Auto) Immature Gran # (Auto) Sodium Potassium Chloride Carbon Dioxide Anion Gap BUN Creatinine Est Cr Clr Drug Dosing Est GFR ( Amer) Est GFR (Non-Af Amer) BUN/Creatinine Ratio Glucose Calcium Phosphorus Magnesium Total Bilirubin AST ALT Alkaline Phosphatase Troponin I 0.405 H* Total Protein Albumin Globulin Albumin/Globulin Ratio Triglycerides 95 Cholesterol 201 H LDL Cholesterol, Calc 105 VLDL Cholesterol, Calc 19 HDL Cholesterol 77 Cholesterol/HDL Ratio 3 Folate > 24.00 TSH Nasal Screen MRSA (PCR) Urine Opiates Screen Ur Methadone, Qual Urine Barbiturates Ur Phencyclidine (PCP) U Amphetamin/Meth Scrn MDMA (Ecstasy) Screen U Benzodiazepines Scrn Ur Cocaine Metabolite U Marijuana (THC) Screen Ethyl Alcohol mg/dL < 3.0 03/15/20 03/15/20 08:00 12:27 WBC RBC Hgb Hct MCV MCH MCHC RDW Std Deviation RDW Coeff of Javy Plt Count MPV Immature Gran % (Auto) Neut % (Auto) Lymph % (Auto) Doddridge % (Auto) Eos % (Auto) Baso % (Auto) Neut # (Auto) Lymph # (Auto) Doddridge # (Auto) Eos # (Auto) Baso # (Auto) Immature Gran # (Auto) Sodium 135 L Potassium 4.2 D Chloride 104 Carbon Dioxide 25 Anion Gap 6.0 BUN 12 Creatinine 1.00 D Est Cr Clr Drug Dosing 114.4 Est GFR ( Amer) 103.4 Est GFR (Non-Af Amer) 89.2 BUN/Creatinine Ratio 11.6 Glucose 126 H Calcium 8.6 Phosphorus 2.5 Magnesium 2.4 Total Bilirubin AST ALT Alkaline Phosphatase Troponin I 1.090 H* Total Protein Albumin Globulin Albumin/Globulin Ratio Triglycerides Cholesterol LDL Cholesterol, Calc VLDL Cholesterol, Calc HDL Cholesterol Cholesterol/HDL Ratio Folate TSH Nasal Screen MRSA (PCR) Urine Opiates Screen Neg Ur Methadone, Qual Neg Urine Barbiturates Neg Ur Phencyclidine (PCP) Neg U Amphetamin/Meth Scrn Neg MDMA (Ecstasy) Screen Neg U Benzodiazepines Scrn Neg Ur Cocaine Metabolite Neg U Marijuana (THC) Screen Neg Ethyl Alcohol mg/dL Medications Administered Current Inpatient Medications Folic Acid (Folic Acid 1 Mg Tab) 1 mg PO QAM [facility] Stop: 04/14/20 08:59 Last Admin: 03/15/20 07:59 Dose: 1 mg Documented by: Gabapentin (Gabapentin 600 Mg Tab) 600 mg PO Q6H [facility]INAY Stop: 03/15/20 20:01 Last Admin: 03/15/20 15:17 Dose: 600 mg Documented by: Gabapentin (Gabapentin 600 Mg Tab) 600 mg PO Q8H VINAY Stop: 03/16/20 22:01 Gabapentin (Gabapentin 600 Mg Tab) 600 mg PO Q12H [facility]AY Stop: 03/17/20 22:01 Gabapentin (Gabapentin 600 Mg Tab) 600 mg PO Q24H VINAY Stop: 03/18/20 22:01 Lorazepam (Lorazepam 1 Mg Tab) 1 - 3 mg PO UD PRN; Protocol PRN Reason: EtoH Withdrawal AWSS 6-10+ Stop: 04/14/20 02:43 Last Admin: 03/15/20 15:25 Dose: 2 mg Documented by: Magnesium Oxide (Magnesium Oxide 400 Mg Tab) 400 mg PO BID [facility] Stop: 04/14/20 08:59 Last Admin: 03/15/20 08:02 Dose: 400 mg Documented by: Nitroglycerin (Nitroglycerin Sl 0.4 Mg/Tab Tab) 0.4 mg SL UD PRN PRN Reason: Chest Pain Stop: 04/14/20 02:43 Ondansetron HCl (Ondansetron Inj 2 Mg/Ml 2 Ml Vial) 4 mg IV Q6H PRN PRN Reason: Nausea Stop: 04/14/20 02:43 Pantoprazole Sodium (Pantoprazole 40 Mg Tab) 40 mg PO QAM [facility] Stop: 04/14/20 11:29 Last Admin: 03/15/20 12:14 Dose: 40 mg Documented by: Thiamine HCl (Thiamine Hcl 100 Mg Tab) 100 mg PO QAM [facility] Stop: 04/14/20 08:59 Last Admin: 03/15/20 07:59 Dose: 100 mg Documented by: PG Care Time/CCT Total # of Minutes Spent Total Time Spent: 40 Total Time Spent with Patient: Total time spent is greater than 50% in coordination of care (as documented) at patient's floor/unit and/or counseling patient: spent 20 minutes at the bedside speaking with patient spent [address] Cody 10 other minutes on chart review, formulating plan Coding Level of Care Code 67874 Subseq Hosp Care Lvl 3 Diagnoses Alcohol withdrawal F10.239 SVT (supraventricular tachycardia) I47.1 Alcohol abuse F10.10 Elevated transaminase level R74.0 Cardiomyopathy I42.9 Elevated troponin I level R79.89
[2020-03-15 20:31] LABS: Partial Thromboplastin Time 26.7 Seconds (21.0-31.0)
--- NOTE | 2020-03-15 21:21 | Billing Data ---
Date of Service March 15, 2020 Coding Level of Care Code 81238 Initial Inpt Care Lvl 3
--- NOTE | 2020-03-16 05:21 | Electrocardiogram Report ---
Test Reason : Blood Pressure : / mmHG Vent. Rate : 109 BPM Atrial Rate : 109 BPM P-R Int : 122 ms QRS Dur : 092 ms QT Int : 330 ms P-R-T Axes : 077 071 013 degrees QTc Int : 444 ms Sinus tachycardia T wave abnormality, consider inferolateral ischemia Abnormal ECG Confirmed by Brendan Kelly ([id number]) on 03/16/2020 5:21:21 AM Referred By: REFERRED SELF Confirmed By:Brendan Kelly
[2020-03-16] MEDS ORDERED: GABAPENTIN 600 MG TAB PO SCH (06:00)
[2020-03-16 07:01] LABS: Hematocrit (blood only) 40.1 % (42-52); Hemoglobin 13.5 g/dL (14.0-18.0); Mean Corpuscular Hemoglobin 32.8 pg (25-34); Mean Corpuscular Hgb Conc 33.7 g/dL (32-36); Mean Corpuscular Volume 97.6 fL (80-100); Mean Platelet Volume 9.9 fL (7.4-10.4); Platelet Count 144 K/uL (130-400); RDW Coefficient of Variation 13.3 % (11.5-14.5); RDW Standard Deviation 47.1 fL (36.4-46.3); Red Blood Count 4.11 M/uL (4.7-6.1); White Blood Count 6.01 K/uL (4.8-10.8)
[2020-03-16 07:22] LABS: Est GFR (African American) 111.5; Potassium 3.8 mmol/L (3.5-5.1)
[2020-03-16 07:23] LABS: Albumin Level 2.9 gm/dl (3.4-5.0); BUN Creatinine Ratio 13.2 (10-20); Calcium 8.3 mg/dl (8.5-10.1); Creatinine Clr Calc Pharmacy 122.4 ml/min; Est GFR (Non-African American) 96.2
[2020-03-16 07:39] LABS: Albumin Globulin Ratio 0.9 (0.9-2); Bilirubin,Total 1.1 mg/dl (0.2-1); Globulin 3.3 gm/dl (2.5-4.0); Total Protein 6.2 gm/dl (6.4-8.2); Troponin I 0.897 ng/ml (0-0.045)
[2020-03-16] MEDS ORDERED: carvediloL 6.25 MG TAB PO SCH (09:00)
[2020-03-16] MEDS: PANTOprazole 40 MG TAB PO SCH (09:13)
[2020-03-16] MEDS: THIAMINE HCL 100 MG TAB PO SCH (09:13)
[2020-03-16] MEDS: FOLIC ACID 1 MG TAB PO SCH (09:13)
[2020-03-16] MEDS: MAGNESIUM OXIDE 400 MG TAB PO SCH (09:14)
--- NOTE | 2020-03-16 09:48 | Student Report ---
[facility] Med Student Progress Note Date of Service Date of service: March 16, 2020 Subjective Subjective: Has been very drowsy because of meds. Sleeping a lot. Noticed he was tremulous when applying toothpaste to his toothbrush last night. Does not feel diaphoretic, but sheets were damp when he awoke this morning. No longer feeling epigastric pain. Denies chest pain, palpitations, nausea/ vomiting. Had a loose BM w/o melena or hematochezia. Has been up and walking around the halls. Good appetite and finished breakfast.
--- NOTE | 2020-03-16 11:12 | Discharge Summary ---
Date of Service March 16, 2020 Admission HPI Per Admitting Provider Seth is a 49-year-old male with a history of alcohol abuse and no past cardiac history who presents with tremulousness, diaphoresis, and SVT with ST depressions. He reports his symptoms began Thursday morning at 6:54 AM when he felt like he had indigestion and needed to burp but could not. This persisted throughout the day, he ate 2 hotdogs and then had not bloody nonbilious emesis. He laid down and felt diaphoretic. He woke up around 9 PM after laying down to sleep and had another episode of diaphoresis but noted that his torso ached. He took 381 mg aspirins then laid down and went back to sleep. He woke up once again at 11 PM the night prior to admission and was "covered in sweat and the chest pain had spread both front and back and was in the center of the chest "causing him to present to the emergency department. He denies any shortness of breath or dyspnea with this episode. He has not had any prior chest pain, angina, or crescendo angina. He denies any history of arrhythmia. 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 He reports that he does not use tobacco products or recreational drugs, but has a high alcohol intake. Endorses "a long time "of drinking 5-6 times per week, and often binge drinks and a large amount. Reports this past week he started drinking Thursday in the morning and continuously drank until Thursday in the evening. He felt tremulous to drink a little less on Thursday. He notes that with drinking in the past he has sometimes felt tremulous after stopping, and will sometimes have white clock to help reduce tremors and then he feels okay after few days. Has never had a seizure. He last went without alcohol for 6 weeks in July after his hernia surgery. His last drink was 37 hours ago. History: Reviewed Surgical history: Reviewed Medications: Reviewed, no chronic medications Allergies: Reviewed CODE STATUS: Full code Social: As above. Lives female roommate, no one sick in the home Principal Diagnosis Acute alcohol withdrawal Discharge Exam Constitutional well developed and well nourished; no acute distress Eyes PERRL, conjunctivae normal, anicteric sclerae ENMT external ear and nose normal, oropharynx normal Neck trachea midline, no thyromegaly Respiratory normal respiratory effort; no respiratory distress and no cough Cardiovascular Rate/Rhythm: regular rhythm and + tachycardic Heart Sounds: normal S1 and normal S2; no murmur Vessels: no JVD Extremities: normal capillary refill; no edema Gastrointestinal (Abdomen) normal bowel sounds, soft, nontender, no hepatosplenomegaly Musculoskeletal no cyanosis or clubbing, extremities motor strength 5/5 Skin no rashes, warm and dry Neurologic patellar DTR's 2+ bilat, sensation intact and PERRL, EOMI, accommodation nl, no face palsy, no dysarthria no focal motor deficits Motor/Sensory: + tremor (mild, bilaterally) Psychiatric Orientation: alert and oriented x 3 Lymphatic no cervical or axillary lymphadenopathy Discharge Data Allergies Allergy/AdvReac Type Severity Reaction Status Date / Time No Known Allergies Allergy Verified 03/15/20 00:41 Consultations 03/15/20 01:19 ED Decision to Admit Stat 03/15/20 02:44 Consult Cardiology Routine Ordered Studies 03/15/20 02:44 liver Urgent Hospital Course (1) Alcohol withdrawal: heavy drinking history, at least 6-8 drinks on most nights, likely every night recent heavy binge episode 5 days ago now with no alcohol for over 48 hours has hypertension, tachycardia, tachypnea, mild tremors will use Gabapentin taper, start with 1200mg currently on 600mg q8 dosing will discharge on 600mg q12 x 2 days then 600mg daily x 2 days then stop will give a small script of Librium 25mg q12 PRN for withdrawal symptoms provided with information for [facility], website and specific phone numbers to call for AA meetings strongly encouraged him to use resources (2) SVT (supraventricular tachycardia): HR in the 200's on admission, resolved with one dose of Adenosine no further issues on monitor, has sinus tachycardia d/w Dr. Cody, likely triggered by stress, heavy drinking recently he will follow patient in clinic will start on Coreg 6.25mg BID for both SVT and more for cardiomyopathy, see below (3) Alcohol abuse: very heavy alcohol use, lives by himself, could be drinking more than he lets on at least 6-8 drinks a day with evidence of alcohol induced cardiomyopathy has steatosis on liver US serious discussion with patient about quitting, he says he is interested he understands that he will only cause more damage to his liver and heart (4) Elevated transaminase level: due to recent alcohol binge trending down, no need to follow (5) Cardiomyopathy: EF 45%, LV is generally hypokinetic, no wall motion abnormalities should improve if he stops drinking examines euvolemic will start on Coreg 6.25mg BID to reduce strain on heart follow up with Dr. 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 Cody) and Other (long discussion with patient about quitting drinking alcohol) Discharge Plan Discharge Items Patient Disposition: Home - Self-Care Reason For Visit: SVT, ETOH Discharge Diagnosis: Supraventricular tachycardia Alcohol abuse Alcohol induced cardiomyopathy Liver steatosis Alcohol withdrawal Condition on Discharge: Good Goals: use Gabapentin and Librium to help with withdrawal symptoms use Coreg to help with cardiomyopathy stay sober, use community sources Activity: Resume your previous activity Non-emergency contact: Primary Care Provider and Payroll Bookkeeper Call non-emergency contact if: you have any medication questions and your symptoms worsen Follow-up/Referrals: Zay Cody MD [Physician] - (2-3 weeks) Kezia Farah MD [Physician] - 03/21/20 9:20 am (An appointment was scheduled with Dr Kezia Farah at [facility], located at [address] [place] [address]. Your appointment is on Thursday03/21/2020 at 9:20 am. Since you are a new patient, you will need to arrive at 8:35am. If you have any questions or need to reschedule, please call [phone].) PCP,NO [Primary Care Provider] - Diet: Regular Addtl Attending Provider Instructions: Medications: - GABAPENTIN: 600mg, take one tablet this afternoon and this evening, then take one tomorrow morning and evening then once a day Thursday and Thursday - CHLORDIAZEPOXIDE: 25mg, can take a tablet every 12 hours if you feel like you are having stronger withdrawal symptoms - CARVEDILOL: 6.25mg twice a day, take this every day, this is for cardiomyopathy to help preserve heart function - OMEPRAZOLE: 20mg daily, this suppresses acid in stomach, likely have some gastritis from drinking heavily recently, take for 30 days then stop SVT: triggered by alcohol withdrawal, no further episodes since you were admitted Dr. Cody recommends Coreg twice a day he will follow up with you in office in 2-3 weeks if you feel like you are in SVT, you can bear down or breathe out through a straw Alcohol abuse and currently in withdrawal you have evidence of damage to your heart with cardiomyopathy as well as some early changes in your liver if you stop drinking you will not damage your liver any further and can prevent loss of function it is very important to remember that if you continue to drink, you cause scar tissue in your liver that CANNOT BE REVERSED, will lead to cirrhosis if you stop drinking you will reverse damage done to your heart for withdrawal, use Gabapentin as above and take the chlordiazepoxide as needed case management will work on getting you established with a primary care provider [facility] drug and alcohol resources, here is the website and phone numbers to call for services, information about helping you stay sober [email or web address] [phone] is the number for general resources if you would like to participate in a meeting call [phone] Sunita Tapia Pending Studies at Discharge: No Stand-Alone Forms: My [facility], Work/School Release (Inpt), Smoking Cessation Medications and DC Order Prescriptions: New carvedilol [Coreg] 6.25 mg tablet 6.25 mg PO BID 30 Days Qty: 60 RF: 3 gabapentin [Neurontin] 600 mg tablet 600 mg PO BID Qty: 6 RF: 0 esomeprazole magnesium 20 mg capsule,delayed release(DR/EC) 20 mg PO DAILY Qty: 30 RF: 0 chlordiazepoxide HCl 25 mg capsule 25 mg PO Q12H PRN (Reason: alcohol withdrawal) Qty: 10 RF: 0 Discontinued aspirin [Aspir-81] 81 mg Tablet,Delayed Release (Dr/Ec) 243 mg PO ONCE RF: 0 aspirin [Aspir-81] 81 mg Tablet,Delayed Release (Dr/Ec) 405 mg PO ONCE RF: 0 Discharge Orders: Discharge Order (Routine); Ordered 03/16/20 Ordered By: Maciel Kelley Admission Data Admit Date/Time: 03/15/20 02:11 Attending Provider: Maciel Kelley Admit Provider: Addi Hill Primary Care Provider: PCP,NO Other Providers: Damian Chahal Jeffrey G. Other Interventions: Discharge Summary Assessment (RN) Last Done: 03/16/20 11:18 Coding Level of Care Code D/C Day Management >30 mins Diagnoses Alcohol withdrawal F10.239 SVT (supraventricular tachycardia) I47.1 Alcohol abuse F10.10 Elevated transaminase level R74.0 Cardiomyopathy I42.9 Elevated troponin I level R79.89
--- NOTE | 2020-03-16 16:03 | Cardiology Progress Note ---
Date of Service March 16, 2020 Assessment & Plan (1) SVT (supraventricular tachycardia): he had a narrow complex tachycardia at the time of admission which responded to adenosine. This would suggestive reentrant mechanism. no recurrence on telemetry. I do not believe he requires any specific therapy in the absence of recurrence. (2) Elevated troponin I level: Improving. I believe this is more of a supply demand mismatch rather than acute coronary syndrome. (3) Alcohol abuse: (4) Cardiomyopathy: Overall LV function appears compromised. Started on carvedilol. Likely alcohol related. Will follow-up the outpatient setting. Admission and Anticipated Discharge Date Admission Date: March 15, 2020 Subjective this morning the patient claims to feeling well. He reports feeling sleepy at times especially after administration of medications. Review of Systems Review of Systems: Per HPI Physical Exam Physical Exam: The patient is alert and oriented. Mood and affect appeared normal. He answered all questions appropriately. HEENT: Pupils are equal and reactive to light and accommodation. Extraocular movements are intact. The sclerae are anicteric. Neuro: Cranial nerves intact Neck: Patient's neck is supple. He has palpable carotid pulses bilaterally without bruits on auscultation. There is no evidence of jugular venous distention. The thyroid is not enlarged. Lungs: Clear to auscultation bilaterally. He has good air movement without use of accessory muscles. No rales wheezes or rhonchi. Cardiac: Heart demonstrates a regular rate and rhythm. Normal S1 and S2. No murmurs on examination. Pulses: The patient has palpable radial pulses bilaterally that are equal in intensity Extremities: There was no evidence of hypoperfusion. There is no cyanosis or clubbing. There is no edema. Skin: I did not appreciate any rashes on examination today. Results & Data ([facility]) Vital Signs (Past 12 Hours) Vital Signs Temp Pulse Pulse Resp BP Pulse Ox 03/16/20 11:18 36.4 C L 109 H 22 153/113 H 92 03/16/20 08:13 36.4 C L 109 H 22 153/113 H 92 03/16/20 08:00 93 H Laboratory Results Abnormal Lab Results 03/15/20 03/16/20 03/16/20 20:06 06:33 06:33 WBC 6.01 RBC 4.11 L Hgb 13.5 L Hct 40.1 L MCV 97.6 MCH 32.8 MCHC 33.7 RDW Std Deviation 47.1 H RDW Coeff of Javy 13.3 Plt Count 144 MPV 9.9 APTT 26.7 PTT Ratio 1.0 Sodium 138 Potassium 3.8 Chloride 105 Carbon Dioxide 24 Anion Gap 8.0 BUN 12 Creatinine 0.94 Est Cr Clr Drug Dosing 122.4 Est GFR ( Amer) 111.5 Est GFR (Non-Af Amer) 96.2 BUN/Creatinine Ratio 13.2 Glucose 97 Calcium 8.3 L Total Bilirubin 1.1 H AST 205 H ALT 186 H Alkaline Phosphatase 94 Troponin I 0.897 H* Total Protein 6.2 L Albumin 2.9 L Globulin 3.3 Albumin/Globulin Ratio 0.9 PG Care Time/CCT Total # of Minutes Spent Total Time Spent with Patient: Total time spent is greater than 50% in coordination of care (as documented) at patient's floor/unit and/or counseling patient: Coding Level of Care Code 65856 Subseq Hosp Care Lvl 2 Diagnoses SVT (supraventricular tachycardia) I47.1 Elevated troponin I level R79.89 Alcohol abuse F10.10 Cardiomyopathy I42.9
[2020-03-17] MEDS ORDERED: GABAPENTIN 600 MG TAB PO SCH (10:00)
[2020-03-18] MEDS ORDERED: GABAPENTIN 600 MG TAB PO SCH (22:00)
== END 2020-03-16 11:46 | disposition home or self-care (01) | DRG 309 ==
LOC: ED 23:50 → 1E 03-15 02:11 → SUATTDRO 03-15 02:11 → 1E 03-15 02:29 → 2S 03-15 19:05

== ENCOUNTER 2021-03-12 15:02 | Inpatient (IN) ==
[2021-03-12] MEDS ORDERED: ADENOSINE IV SOLN 3 MG/ML 2 ML VIAL IV ONE (15:19)
[2021-03-12] MEDS ORDERED: THIAMINE HCL 200 MG in SODIUM CHLORIDE 0.9% 50 ML IV STA (15:21)
[2021-03-12] MEDS ORDERED: SODIUM CHLORIDE 0.9% 1000ML 1,000 ML IV STA (15:21)
[2021-03-12] MEDS ORDERED: ADENOSINE IV SOLN 3 MG/ML 2 ML VIAL IV STA (15:21)
[2021-03-12 15:37] LABS: Basophils # (auto) 0.02 K/uL (0-0.2); Basophils % (auto) 0.2 %; Eosinophils # (auto) 0.01 K/uL (0-0.5); Eosinophils % (auto) 0.1 %; Hematocrit (blood only) 44.6 % (42-52); Immature Granulocytes # (auto) 0.04 K/uL (0.00-0.02); Immature Granulocytes % (auto) 0.3 %; Lymphocytes # (auto) 1.36 K/uL (1.2-3.4); Lymphocytes % (auto) 10.4 %; Mean Corpuscular Hemoglobin 32.3 pg (25-34); Mean Corpuscular Hgb Conc 33.6 g/dL (32-36); Mean Corpuscular Volume 96.1 fL (80-100); Mean Platelet Volume 9.9 fL (7.4-10.4); Monocytes # (auto) 0.76 K/uL (0.11-0.59); Monocytes % (auto) 5.8 %; Neutrophils # (auto) 10.83 K/uL (1.4-6.5); Neutrophils % (auto) 83.2 %; Platelet Count 184 K/uL (130-400); RDW Coefficient of Variation 13.7 % (11.5-14.5); RDW Standard Deviation 48.7 fL (36.4-46.3); Red Blood Count 4.64 M/uL (4.7-6.1); White Blood Count 13.02 K/uL (4.8-10.8)
[2021-03-12 15:47] LABS: Partial Thromboplastin Time 27.1 Seconds (21.0-31.0)
--- NOTE | 2021-03-12 15:47 | XRay Report ---
XR chest 1V portable HISTORY: 50 years-old Male Chest Pain acute atypical chest pain COMPARISON: 03/15/2020 TECHNIQUE: Portable AP view of the chest FINDINGS: Cardiac silhouette is mildly enlarged. There is no pneumothorax, pleural effusion, airspace consolida tion or overt pulmonary edema. Spondylitic spurring of the spine. IMPRESSION: No acute process. ACT 112: Negative or not required by law. The above report was generated using voice recognition software. It may contain grammatical, syntax o r spelling errors. Electronically signed by: Rusty Vargas M.D. 03/12/2021 3:46 PM
[2021-03-12 15:55] LABS: Albumin Level 4.1 gm/dl (3.4-5.0); BUN Creatinine Ratio 13.8 (10-20); Creatinine Clr Calc Pharmacy 91.7 ml/min; Est GFR (African American) 79.2 ml/min; Est GFR (Non-African American) 68.3 ml/min; Magnesium 1.7 mg/dl (1.8-2.4); Potassium 3.6 mmol/L (3.5-5.1)
--- NOTE | 2021-03-12 16:03 | Emergency Department Note ---
Impression & Plan SVT (supraventricular tachycardia), Heart palpitations, Chest pain, Elevated troponin I level, Hypomagnesemia, Acute hyponatremia ED Provider Note NAME: ELAINE BRADEN AGE: 50 SEX: M : 1970 ARRIVES VIA: Walk-In INFORMANT: Patient, ED PROVIDER(S): Eduardo Rogers DO CHIEF COMPLAINT: Palpitations HPI: The patient is a 50-year-old male who presented to the emergency department for an evaluation of palpitations. The patient states he awoke this morning at approximately 7 AM with palpitations. He has a history of SVT and felt that he was in SVT since this morning. The patient complains of chest pain or shortness of breath. He is also having significant anxiety. He was given a dose of an oral antianxiety medication by a coworker. His symptoms did not improve so he came to the emergency department. The patient does not take any medications for SVT at this time. At one time he was taking cardiac medications for SVT but was told not to take this medication and he did not need it anymore. The patient states he has a history of alcohol use. He drank a significant amount of vodka 2 nights ago. He also had some beer yesterday. He was told at one point that his cardiac problems could come from using alcohol. The patient has had problems with withdrawal in the past. This time he denies having any nausea vomiting. He tried Valsalva maneuver without relief. The patient states his symptoms are moderate to severe. ROS: See above HPI for pertinent positives & negatives. A total of 10 systems reviewed and were otherwise negative. PAST MEDICAL HISTORY: See Below PAST SURGICAL HISTORY: See Below FAMILY HISTORY: See Below SOCIAL HISTORY: See Below HOME MEDICATIONS: See Below ALLERGIES: See Below VITALS: See Below PHYSICAL EXAMINATION: GENERAL: The patient is awake and alert. The patient is very anxious appearing. EYES: The conjunctivae are clear. The pupils are round and reactive. EARS, NOSE, MOUTH AND THROAT: The nose is without any evidence of any deformity. NECK: The neck is nontender and supple. RESPIRATORY: Normal respiratory effort is noted there is no evidence of wheezing rhonchi or rales CARDIOVASCULAR: Tachycardic rate with regular rhythm was noted. There was no definite murmur. GASTROINTESTINAL: The abdomen is soft. Abdomen is nontender. MUSCULOSKELETAL/EXTREMITIES: There is no evidence of gross deformity full range of motion is noted in the hips and shoulders. SKIN: There is no obvious evidence of any rash. There are no petechiae, pallor o r cyanosis noted. NEUROLOGIC: Patient is awake alert and oriented x3 strength is symmetric patellar reflexes are 2+ bilaterally MEDICAL DECISION MAKING: The patient is a 50-year-old male who presented to the emergency department for an evaluation of palpitations. The patient has a history of SVT which was felt to be secondary to alcohol use. He is currently not taking any medications and does not have a primary care provider. He was drinking alcohol a few days ago. He started having shakes yesterday and started drinking beer. He started having palpitations this morning upon awakening. Patient presented to the emergency department with a very narrow complex tachycardia which was treated initially with modified Valsalva. He was treated multiple times with modified Valsalva. Heart rate did not break initially. He was allowed to lay flat and IV fluids were instilled while we are drawing up adenosine. The patient broke without use of adenosine. He was treated with IV fluids and IV thiamine. He was also given IV magnesium and aspirin. He was reevaluated multiple times. He was very symptomatic with the SVT and has an elevated troponin. Given these findings I discussed his case with the on-call [facility] hospitalist. They have agreed to evaluate the patient in the emergency department for further management and disposition. The patient may be starting to have some degree of alcohol withdrawal. He was treated with Ativan. He was willing to stay in the hospital for further evaluation. Triage Nursing notes reviewed. Prior medical records reviewed Vital Signs: reviewed and remarkable for tachycardia and hypertension. Differential diagnosis: Premature contractions, electrolyte abnormality, cardiac dysrhythmia, thyroid dy sfunction, pulmonary embolism, infection, gastrointestinal, as well as other pathologies. ER treatment provided: See below Diagnostics interpreted by me: ECG: EKG was obtained in the emergency department my interpretation is narrow complex tachycardia at [address] segment abnormalities were noted. This was compared to a tracing from March [id number]. SVT has replaced sinus rhythm. A second EKG was obtained after Valsalva maneuver. My interpretation is sinus tachycardia at 113 bpm. There is no ectopy. ST segment abnormalities were noted. This was compared to a tracing from March 18, 2020. There was an increase in the ventricular rate however there no other significant changes noted. Cardiac Monitoring: An order was placed for continuous cardiac monitoring. The monitor shows a rate of 109 bpm with sinus tachycardia rhythm. Laboratory studies: As stated above and show below. Imaging studies: See below Consultation(s): 1630: I discussed this case with Dr. Hartley who is on-call for [facility]. They will evaluate the patient in the emergency department for fur ther management and disposition. Past Med/Surg History Medical History (Updated 03/12/21 @ 16:31 by Eduardo Rogers DO) Elevated troponin I level Hypomagnesemia No pertinent past medical history SVT (supraventricular tachycardia) Surgical History History of hernia surgery July 2019 No pertinent past surgical history S/P appendectomy S/P nasal surgery after fracture with repair of the infraorbital rim S/P wisdom tooth extraction Family History Grandfather (Maternal) Myocardial infarction Other No pertinent family history in first degree relatives Denies family history of Ovarian cancer Prostate cancer Breast cancer Colorectal cancer Social History Smoking Status: Never smoker Second Hand Exposure: No; Hx Alcohol Use: No (not drinking since hospitalization) Hx Substance Use: No Preferred Language: Romansh Communication Ability: Effective Visual Impairment: No Limitations Hearing Ability: Normal Stave Block Splitter Required: No Beliefs That Will Affect Care: None marital status: Single Current Living Situation: Other Current Living Situation Comment: Roommate with child. 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 Seatbelt Use: always Sunscreen Use: Yes (sometimes) Assistive Devices: None Allergies Allergies Allergy/AdvReac Type Severity Reaction Status Date / Time No Known Allergies Allergy Verified 03/12/21 15:54 Home Meds Home Medications Medication Instructions Recorded Confirmed No Known Home Medications 03/12/21 03/12/21 Results & Data (ED) Vital Signs Vital Signs - 24 hr 03/12/21 15:07 03/12/21 15:21 03/12/21 15:26 Temperature 36.1 C L Temperature Source Temporal Artery Scan Pulse Rate 206 H Pulse Rate [Apical] 201 H 109 H Pulse Rate from SpO2 Sensor Pulse Rhythm Pulse Rhythm [Apical] Regular Regular Pulse Strength [Apical] Normal Normal Respiratory Rate 18 22 22 Respiratory Effort / Characteristics Non-Labored Spontaneous Non-Labored Spontaneous Non-Labored Spontaneous Respiratory Depth Normal Normal Normal Respiratory Pattern Regular Regular Regular Blood Pressure 154/95 H Blood Pressure [Right Arm] 155/113 H 165/113 H Blood Pressure Mean 114 Blood Pressure Mean [Right Arm] 127 130 Blood Pressure Position [Right Arm] Sitting Sitting Pulse Oximetry 98 94 97 Oxygen Delivery Method Room Air Room Air Room Air Sepsis Recent Fever Within 48 Hours No Sepsis New/Unexplained Change in Mental Status N/A Sepsis Action Taken by Nursing No Action Required 03/12/21 15:30 03/12/21 15:45 03/12/21 15:50 Temperature Temperature Source Pulse Rate 110 H 109 H 109 H Pulse Rate [Apical] Pulse Rate from SpO2 Sensor 111 H 109 H Pulse Rhythm Regular Pulse Rhythm [Apical] Pulse Strength [Apical] Respiratory Rate 22 22 22 Respiratory Effort / Characteristics Respiratory Depth Respiratory Pattern Blood Pressure 149/114 H 163/109 H Blood Pressure [Right Arm] Blood Pressure Mean 125 127 Blood Pressure Mean [Right Arm] Blood Pressure Position [Right Arm] Pulse Oximetry 96 94 97 Oxygen Delivery Method Room Air Room Air Room Air Sepsis Recent Fever Within 48 Hours Sepsis New/Unexplained Change in Mental Status Sepsis Action Taken by Intermediate Medications Current Medication List: was personally reviewed by me Laboratory Data Attestation: I reviewed the patient's lab results. Result diagrams: 03/12/21 15:27 03/12/21 15:27 Lab Results 03/12/21 03/12/21 03/12/21 Range/Units 15:27 15:27 15:27 WBC 13.02 H (4.8-10.8) K/uL RBC 4.64 L (4.7-6.1) M/uL Hgb 15.0 (14.0-18.0) g/dL Hct 44.6 (42-52) % MCV 96.1 (80-100) fL MCH 32.3 (25-34) pg MCHC 33.6 (32-36) g/dL RDW Std Deviation 48.7 H (36.4-46.3) fL RDW Coeff of Javy 13.7 (11.5-14.5) % Plt Count 184 (130-400) K/uL MPV 9.9 (7.4-10.4) fL Immature Gran % (Auto) 0.3 % Neut % (Auto) 83.2 % Lymph % (Auto) 10.4 % Hamilton % (Auto) 5.8 % Eos % (Auto) 0.1 % Baso % (Auto) 0.2 % Neut # (Auto) 10.83 H (1.4-6.5) K/uL Lymph # (Auto) 1.36 (1.2-3.4) K/uL Hamilton # (Auto) 0.76 H (0.11-0.59) K/uL Eos # (Auto) 0.01 (0-0.5) K/uL Baso # (Auto) 0.02 (0-0.2) K/uL Immature Gran # (Auto) 0.04 H (0.00-0.02) K/uL PT 10.0 (9.0-12.0) Seconds INR 1.0 (0.9-1.1) APTT 27.1 (21.0-31.0) Seconds PTT Ratio 1.0 Sodium 132 L (136-145) mmol/L Potassium 3.6 (3.5-5.1) mmol/L Chloride 99 (98-107) mmol/L Carbon Dioxide 25 (21-32) mmol/L Anion Gap 8.0 (3-11) BUN 17 (7-18) mg/dl Creatinine 1.24 (0.6-1.4) mg/dl Est Cr Clr Drug Dosing 91.7 ml/min Est GFR ( Amer) 79.2 ml/min Est GFR (Non-Af Amer) 68.3 ml/min BUN/Creatinine Ratio 13.8 (10-20) Glucose 178 H (70-99) mg/dl Calcium 9.0 (8.5-10.1) mg/dl Magnesium 1.7 L (1.8-2.4) mg/dl Total Bilirubin 1.7 H (0.2-1) mg/dl AST 57 H (15-37) U/L ALT 47 (12-78) U/L Alkaline Phosphatase 50 (45-117) U/L Troponin I 0.079 H* (0-0.045) ng/ml Total Protein 7.6 (6.4-8.2) gm/dl Albumin 4.1 (3.4-5.0) gm/dl Globulin 3.5 (2.5-4.0) gm/dl Albumin/Globulin Ratio 1.2 (0.9-2) Lipase 105 (73-393) U/L TSH 1.220 (0.300-4.500) uIu/ml Administered Medications Discontinued Medications Sodium Chloride (Nss 1000ml) 1,000 mls @ 999 mls/hr IV .Q1H1M STA Stop: 03/12/21 16:21 Last Admin: 03/12/21 15:22 Dose: 999 mls/hr Documented by: [id number] Thiamine HCl 200 mg/ Sodium (Chloride) 52 mls @ 208 mls/hr IV NOW STA Stop: 03/12/21 15:35 Last Admin: 03/12/21 16:04 Dose: 208 mls/hr Documented by: [id number] Imaging Data Radiologist's Impression: Chest X-Ray 03/12/21 15:21 XR chest 1V portable HISTORY: 50 years-old Male Chest Pain acute atypical chest pain COMPARISON: 03/15/2020 TECHNIQUE: Portable AP view of the chest FINDINGS: Cardiac silhouette is mildly enlarged. There is no pneumothorax, pleural effusion, airspace consolidation or overt pulmonary edema. Spondylitic spurring of the spine. IMPRESSION: No acute process. ACT 112: Negative or not required by law. The above report was generated using voice recognition software. It may contain grammatical, syntax or spelling errors. Electronically signed by: Rusty Vargas M.D. 03/12/2021 3:46 PM Discharge Plan Visit Data Chief Complaint: Arrhythmia/Palpitations Stated Complaint: [facility] ED Provider: Eduardo Rogers Discharge Problem: SVT (supraventricular tachycardia), Heart palpitations, Chest pain, Elevated troponin I level, Hypomagnesemia, Acute hyponatremia Patient Disposition: Being Evaluated by Hospitalist Condition: Good Forms Stand Alone Forms: [employer] Prescriptions Prescriptions: No Action No Known Home Medications RF: 0 Referrals Referrals: PCP,NO [Primary Care Provider] -
[2021-03-12 16:12] LABS: Albumin Globulin Ratio 1.2 (0.9-2); Bilirubin,Total 1.7 mg/dl (0.2-1); Globulin 3.5 gm/dl (2.5-4.0); Thyroid Stimulating Hormone 1.22 uIu/ml (0.300-4.500); Total Protein 7.6 gm/dl (6.4-8.2); Troponin I 0.079 ng/ml (0-0.045)
[2021-03-12] MEDS ORDERED: LORazepam 1 MG/2 ML VIAL IV STA (16:13)
[2021-03-12] MEDS ORDERED: ASPIRIN CHEW 324 MG PO STA (16:13)
[2021-03-12] MEDS: MAGNESIUM SULFATE / D5W 1 GM/100 ML BAG IV SCH ×2 (16:35→18:26)
[2021-03-12] MEDS ORDERED: ACETAMINOPHEN 325 MG TAB PO PRN (18:59)
--- NOTE | 2021-03-12 18:59 | History & Physical Report ---
Date of Service March 12, 2021 Assessment & Plan (1) SVT (supraventricular tachycardia): Plan: Patient admitted for SVT Patient will be placed on beta caleb Will consult cardio. (2) Heart palpitations: Plan: as stated above (3) Elevated troponin I level: Plan: WILL OBTAIN SERIAL MARKERS. likely stress induced from problem 1 (4) Acute hyponatremia: Plan: likely beer potomania will repeat level in AM. (5) Hypertension: Plan: will monitlr Placed on beta caleb (6) Alcohol abuse: Plan: recommend lifestyle changes. will discuss further once plapitations have subsided. may benefit from rehab. ordered gabapentin taper (7) Hyperglycemia: Plan: will order a1c. History of Present Illness Chief Complaint: palpiatations Primary Care Provider: NO PCP This is a pleasant 50 yo male who comes into the hospital with complaints of palpitations. Patient reports that this is a chronic problem that has been ongoing for the past 7 years. However, these episodes are short lived and patient responds to valsalva. Howevr, this AM patient had palpiatations but these did not respond to valsalva and patient was brought into the hospital. Patient reports that he has history of alcohol withdrawal, patient reports that he drinks daily. He had a beer yesterday Allergies Allergy/AdvReac Type Severity Reaction Status Date / Time No Known Allergies Allergy Verified 03/12/21 15:54 Home Medications Medication Instructions Recorded Confirmed Type No Known Home Medications 03/12/21 03/12/21 History Past Med/Surg History Medical History Elevated troponin I level Hypomagnesemia No pertinent past medical history SVT (supraventricular tachycardia) Surgical History History of hernia surgery July 2019 No pertinent past surgical history S/P appendectomy S/P nasal surgery after fracture with repair of the infraorbital rim S/P wisdom tooth extraction Family History Grandfather (Maternal) Myocardial infarction Other No pertinent family history in first degree relatives Denies family history of Ovarian cancer Prostate cancer Breast cancer Colorectal cancer Social History Smoking Status: Never smoker Second Hand Exposure: No; Hx Alcohol Use: Yes Alcohol type: beer and hard liquor Hx Substance Use: No Preferred Language: Bermudian Communication Ability: Effective Visual Impairment: No Limitations Hearing Ability: Normal Air Drill Operator Required: No Beliefs That Will Affect Care: None marital status: Single Current Living Situation: Other Current Living Situation Comment: Roommate and son. 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 Use: always Sunscreen Use: Yes (sometimes) Assistive Devices: Glasses Review of Systems Constitutional: no fever and no sweats Eyes: no blind spots Ear, Nose, Mouth, Throat: no ear pain and no ear trauma Respiratory: no cough and no change in sputum Cardiovascular: + palpitations; no chest pain Gastrointestinal: no abdominal pain Genitourinary: no dysuria Musculoskeletal: no back pain Integumentary: no lesions Neurologic: no gait abnormality Endocrine: no fatigue Hematologic / Lymphatic: no easy bleeding Physical Exam Constitutional: WD/WN, vitals as above Eyes: PERRL, conjunctivae normal, anicteric sclerae ENMT: external ear and nose normal, oropharynx normal Neck: trachea midline, no thyromegaly Respiratory: normal respiratory effort, lungs clear to auscultation Cardiovascular: Rate/Rhythm: + tachycardic Heart Sounds: normal S1 and normal S2 Gastrointestinal (Abdomen): normal bowel sounds, soft, nontender, no hepatosplenomegaly Musculoskeletal: no cyanosis or clubbing, extremities motor strength 5/5 Skin: no rashes, warm and dry Neurologic: PERRL, EOMI, accommodation nl, no face palsy, no dysarthria Psychiatric: A+Ox3, euthymic affect Lymphatic: no cervical or axillary lymphadenopathy Results & Data Results & Data ([facility]) Vital Signs (Past 12 Hours) Vital Signs Temp Pulse Pulse Resp BP BP Pulse Ox 03/12/21 18:30 109 H 22 145/114 H 95 03/12/21 18:15 107 H 22 137/103 H 95 03/12/21 18:00 110 H 22 141/101 H 95 03/12/21 17:45 111 H 20 146/108 H 95 03/12/21 17:30 109 H 24 133/103 H 96 03/12/21 17:15 109 H 22 146/110 H 95 03/12/21 17:00 109 H 22 153/108 H 97 03/12/21 16:45 113 H 22 162/111 H 97 03/12/21 16:30 110 H 20 154/109 H 98 03/12/21 16:15 114 H 22 148/106 H 92 03/12/21 16:00 108 H 22 150/106 H 94 03/12/21 15:50 109 H 22 97 03/12/21 15:45 109 H 22 163/109 H 94 03/12/21 15:30 110 H 22 149/114 H 96 03/12/21 15:26 109 H 22 165/113 H 97 03/12/21 15:21 201 H 22 155/113 H 94 03/12/21 15:07 36.1 C L 206 H 18 154/95 H 98 PG Care Time/CCT Total # of Minutes Spent Total Time Spent with Patient: Total time spent is greater than 50% in coordination of care (as documented) at patient's floor/unit and/or counseling patient: Coding Level of Care Code 70100 Initial Inpt Care Lvl 3 Diagnoses SVT (supraventricular tachycardia) I47.1 Heart palpitations R00.2 Elevated troponin I level R77.8 Acute hyponatremia E87.1 Hypertension I10 Alcohol abuse F10.10 Hyperglycemia R73.9
[2021-03-12] MEDS ORDERED: GABAPENTIN 800MG ALCOHOL WITHDRAWAL LOAD PO ONE (19:05)
[2021-03-12] MEDS ORDERED: GABAPENTIN 400 MG CAP PO ONE (20:10)
[2021-03-12] MEDS ORDERED: LORazepam 1 MG/2 ML VIAL IV PRN (21:16)
[2021-03-13] MEDS: carvediloL 3.125 MG TAB PO SCH ×2 (00:28→09:22)
[2021-03-13] MEDS: GABAPENTIN 400 MG CAP PO SCH ×3 (05:13→22:00)
[2021-03-13 06:48] LABS: Hematocrit (blood only) 40.1 % (42-52); Hemoglobin 13.4 g/dL (14.0-18.0); Mean Corpuscular Hemoglobin 32.1 pg (25-34); Mean Corpuscular Hgb Conc 33.4 g/dL (32-36); Mean Corpuscular Volume 95.9 fL (80-100); Mean Platelet Volume 9.9 fL (7.4-10.4); Platelet Count 140 K/uL (130-400); RDW Coefficient of Variation 13.9 % (11.5-14.5); RDW Standard Deviation 49.1 fL (36.4-46.3); Red Blood Count 4.18 M/uL (4.7-6.1)
[2021-03-13 07:16] LABS: Albumin Level 3.3 gm/dl (3.4-5.0); BUN Creatinine Ratio 14.3 (10-20); Calcium 8.4 mg/dl (8.5-10.1); Est GFR (African American) 89.5 ml/min; Est GFR (Non-African American) 77.3 ml/min; Potassium 4.1 mmol/L (3.5-5.1)
[2021-03-13 07:35] LABS: Estimated Average Glucose 97 mg/dl
[2021-03-13 07:41] LABS: Bilirubin,Total 2.3 mg/dl (0.2-1); Globulin 3.3 gm/dl (2.5-4.0); Total Protein 6.6 gm/dl (6.4-8.2)
--- NOTE | 2021-03-13 11:27 | Hospitalist Progress Note ---
Date of Service March 13, 2021 Assessment & Plan (1) SVT (supraventricular tachycardia): Plan: Presentation with SVTremains in sinus; on low-dose carvedilol; Echo; cardiology input pending (2) Elevated troponin I level: Plan: Probably demand, type IIaspirin reasonablecardiac; echo, lipid panel first risk stratification (3) Acute hyponatremia: Plan: Insignificant at presentfollow-up (4) Hypertension: Plan: If at all blood pressure on low sidefollow clinically (5) Alcohol abuse: Plan: Recommend cessation; follow-up withdrawal scale (6) Abnormal LFTs: Plan: Likely alcohol induced, AST more than ALT; follow for now Plan: Replace magnesium as appropriate Admission and Anticipated Discharge Date Admission Date: March 12, 2021 Subjective Follow-up of presentation with palpitations; remains in sinus; complains of mild shortness of breath; minimal bloodstained sputum Physical Exam Physical Exam: Constitutional and general: No acute distress, looks biologic age Head and face: No puffiness, atraumatic, flushed appearance Eyes: mild scleral icterus, extraocular movements normal Neck: Supple, no JVD Musculoskeletal: No acute joint swelling, no bony abnormalities Skin/dermatologic/integument: No rash, no purpura Hematologic and lymphatic: pallor +, no petechia Gastrointestinal/abdomen: Nondistended, soft, nonacute Neurologic: Cranial nerves intact, nonfocal, mildly tremulous Psychiatry: Awake, alert, pleasant, communicative Cardiovascular: Heart rhythm regular, no rub, no murmur, no gallop Respiratory: Chest movements equal, no use of accessory muscles, no adventitious sounds Extremities: No edema, no cyanosis Results & Data Results & Data ([facility]) Vital Signs (Past 12 Hours) Vital Signs Temp Pulse Pulse Pulse Resp BP Pulse Ox 03/13/21 09:51 104 H 03/13/21 07:35 37.0 C 89 16 109/64 95 03/13/21 04:13 36.9 C 111 H 18 103/71 94 03/13/21 01:15 113 H 03/13/21 01:14 115 H 03/13/21 00:06 37.5 C 116 H 20 114/90 95 Laboratory Results Laboratory Results - last 24 hr 03/12/21 03/12/21 03/12/21 15:27 15:27 15:27 WBC 13.02 H RBC 4.64 L Hgb 15.0 Hct 44.6 MCV 96.1 MCH 32.3 MCHC 33.6 RDW Std Deviation 48.7 H RDW Coeff of Javy 13.7 Plt Count 184 MPV 9.9 Immature Gran % (Auto) 0.3 Neut % (Auto) 83.2 Lymph % (Auto) 10.4 [place] % (Auto) 5.8 Eos % (Auto) 0.1 Baso % (Auto) 0.2 Neut # (Auto) 10.83 H Lymph # (Auto) 1.36 [place] # (Auto) 0.76 H Eos # (Auto) 0.01 Baso # (Auto) 0.02 Immature Gran # (Auto) 0.04 H PT 10.0 INR 1.0 APTT 27.1 PTT Ratio 1.0 Sodium 132 L Potassium 3.6 Chloride 99 Carbon Dioxide 25 Anion Gap 8.0 BUN 17 Creatinine 1.24 Est Cr Clr Drug Dosing 91.7 Est GFR ( Amer) 79.2 Est GFR (Non-Af Amer) 68.3 BUN/Creatinine Ratio 13.8 Glucose 178 H Estimat Average Glucose Hemoglobin A1c Calcium 9.0 Magnesium 1.7 L Total Bilirubin 1.7 H AST 57 H ALT 47 Alkaline Phosphatase 50 Troponin I 0.079 H* Total Protein 7.6 Albumin 4.1 Globulin 3.5 Albumin/Globulin Ratio 1.2 Triglycerides Cholesterol LDL Cholesterol, Calc VLDL Cholesterol, Calc HDL Cholesterol Cholesterol/HDL Ratio Lipase 105 Procalcitonin TSH 1.220 COVID-19 Eval Order SARS-CoV-2 (PCR) 03/12/21 03/12/21 03/12/21 15:27 17:15 17:15 WBC RBC Hgb Hct MCV MCH MCHC RDW Std Deviation RDW Coeff of Javy Plt Count MPV Immature Gran % (Auto) Neut % (Auto) Lymph % (Auto) [place] % (Auto) Eos % (Auto) Baso % (Auto) Neut # (Auto) Lymph # (Auto) [place] # (Auto) Eos # (Auto) Baso # (Auto) Immature Gran # (Auto) PT INR APTT PTT Ratio Sodium Potassium Chloride Carbon Dioxide Anion Gap BUN Creatinine Est Cr Clr Drug Dosing Est GFR ( Amer) Est GFR (Non-Af Amer) BUN/Creatinine Ratio Glucose Estimat Average Glucose Hemoglobin A1c Calcium Magnesium Total Bilirubin AST ALT Alkaline Phosphatase Troponin I Total Protein Albumin Globulin Albumin/Globulin Ratio Triglycerides Cholesterol LDL Cholesterol, Calc VLDL Cholesterol, Calc HDL Cholesterol Cholesterol/HDL Ratio Lipase Procalcitonin < 0.05 TSH COVID-19 Eval Order Covid19 at [facility] SARS-CoV-2 (PCR) NEGATIVE 03/13/21 03/13/21 03/13/21 00:29 06:22 06:22 WBC 7.10 RBC 4.18 L Hgb 13.4 L Hct 40.1 L MCV 95.9 MCH 32.1 MCHC 33.4 RDW Std Deviation 49.1 H RDW Coeff of Javy 13.9 Plt Count 140 MPV 9.9 Immature Gran % (Auto) Neut % (Auto) Lymph % (Auto) [place] % (Auto) Eos % (Auto) Baso % (Auto) Neut # (Auto) Lymph # (Auto) [place] # (Auto) Eos # (Auto) Baso # (Auto) Immature Gran # (Auto) PT INR APTT PTT Ratio Sodium 134 L Potassium 4.1 Chloride 102 Carbon Dioxide 25 Anion Gap 6.0 BUN 16 Creatinine 1.12 Est Cr Clr Drug Dosing 101.0 Est GFR ( Amer) 89.5 Est GFR (Non-Af Amer) 77.3 BUN/Creatinine Ratio 14.3 Glucose 137 H Estimat Average Glucose Hemoglobin A1c Calcium 8.4 L Magnesium Total Bilirubin 2.3 H AST 182 H ALT 101 H Alkaline Phosphatase 55 Troponin I 0.170 H* Total Protein 6.6 Albumin 3.3 L Globulin 3.3 Albumin/Globulin Ratio 1.0 Triglycerides 145 Cholesterol 220 H LDL Cholesterol, Calc 107 VLDL Cholesterol, Calc 29 HDL Cholesterol 84 Cholesterol/HDL Ratio 3 Lipase Procalcitonin TSH COVID-19 Eval Order SARS-CoV-2 (PCR) 03/13/21 06:22 WBC RBC Hgb Hct MCV MCH MCHC RDW Std Deviation RDW Coeff of Javy Plt Count MPV Immature Gran % (Auto) Neut % (Auto) Lymph % (Auto) [place] % (Auto) Eos % (Auto) Baso % (Auto) Neut # (Auto) Lymph # (Auto) [place] # (Auto) Eos # (Auto) Baso # (Auto) Immature Gran # (Auto) PT INR APTT PTT Ratio Sodium Potassium Chloride Carbon Dioxide Anion Gap BUN Creatinine Est Cr Clr Drug Dosing Est GFR ( Amer) Est GFR (Non-Af Amer) BUN/Creatinine Ratio Glucose Estimat Average Glucose 97 Hemoglobin A1c 5.0 Calcium Magnesium Total Bilirubin AST ALT Alkaline Phosphatase Troponin I Total Protein Albumin Globulin Albumin/Globulin Ratio Triglycerides Cholesterol LDL Cholesterol, Calc VLDL Cholesterol, Calc HDL Cholesterol Cholesterol/HDL Ratio Lipase Procalcitonin TSH COVID-19 Eval Order SARS-CoV-2 (PCR) Diagnostic Findings Chest X-Ray 03/12/21 15:21 XR chest 1V portable HISTORY: 50 years-old Male Chest Pain acute atypical chest pain COMPARISON: 03/15/2020 TECHNIQUE: Portable AP view of the chest FINDINGS: Cardiac silhouette is mildly enlarged. There is no pneumothorax, pleural effusion, airspace consolidation or overt pulmonary edema. Spondylitic spurring of the spine. IMPRESSION: No acute process. ACT 112: Negative or not required by law. The above report was generated using voice recognition software. It may contain grammatical, syntax or spelling errors. Electronically signed by: Rusty Vargas M.D. 03/12/2021 3:46 PM PG Care Time/CCT Total # of Minutes Spent Total Time Spent with Patient: Total time spent is greater than 50% in coordination of care (as documented) at patient's floor/unit and/or counseling patient: Coding Level of Care Code 54848 Subseq Hosp Care Lvl 2 Diagnoses SVT (supraventricular tachycardia) I47.1 Elevated troponin I level R77.8 Acute hyponatremia E87.1 Hypertension I10 Alcohol abuse F10.10 Abnormal LFTs R94.5
[2021-03-13] MEDS: ASPIRIN 81 MG ECTAB PO SCH (12:30)
--- NOTE | 2021-03-13 13:22 | Cardiology Consultation ---
Date of Consultation March 13, 2021 Assessment & Plan (1) SVT (supraventricular tachycardia): (2) Elevated troponin I level: (3) Alcohol abuse: (4) Alcoholic cardiomyopathy: I think we are dealing with most likely something a little bit more than holiday heart. This may be a reentry tachycardia such as AVRT. I would switch him over from carvedilol to metoprolol to treat his tachycardia as he is running a low blood pressure. The metoprolol has less of an effect on blood pressure th en carvedilol. I would continue him on aspirin only. The elevation in cardiac troponins is most likely not related to ACS but stress-induced. I reviewed his echocardiogram however, he does have evidence of severe RV and LV dysfunction consistent with an alcoholic cardiomyopathy. During my interview he did express a desire to have some type of program to help him with his alcohol problem and I would recommend an outpatient rehab program. I would be prepared for alcohol withdrawal with him. History of Present Illness Attending Physician: Aparna Mera MD History of Present Illness This is a 50-year-old male patient with history of SVT that dates back several years. He is never really had it worked up but has been aware of it and actually from the Internet learned how to treated himself with Valsalva. He admits to having an alcohol problem and it seems like his SVT may be associated to binge drinking however, the morphology of the SVT on his EKG suggest a reentry tachycardia such as AV saúl reentry tach. He spontaneously converted to normal sinus rhythm or mild sinus tachycardia where he has remained since admission. He has no ongoing complaints. He has had no activity related chest pain or progressive shortness of breath. He has had no syncope or presyncope. He denies orthopnea. Allergies Allergy/AdvReac Type Severity Reaction Status Date / Time No Known Allergies Allergy Verified 03/12/21 15:54 Home Medications Medication Instructions Recorded Confirmed Type No Known Home Medications 03/12/21 03/12/21 History Patient History Medical History (Updated 03/13/21 @ 14:10 by Anton Malagon DO) Elevated troponin I level Hypomagnesemia No pertinent past medical history SVT (supraventricular tachycardia) Surgical History History of hernia surgery July 2019 No pertinent past surgical history S/P appendectomy S/P nasal surgery after fracture with repair of the infraorbital rim S/P wisdom tooth extraction Family History Grandfather (Maternal) Myocardial infarction Other No pertinent family history in first degree relatives Denies family history of Ovarian cancer Prostate cancer Breast cancer Colorectal cancer Social History Smoking Status: Never smoker Second Hand Exposure: No; Hx Alcohol Use: Yes Alcohol type: beer and hard liquor Hx Substance Use: No Preferred Language: German Communication Ability: Effective Visual Impairment: No Limitations Hearing Ability: Normal Necktie Stitcher Required: No Beliefs That Will Affect Care: None marital status: Single Current Living Situation: Other Current Living Situation Comment: Roommate and son. 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 All other 10 point review of systems are negative. Physical Exam Physical Exam: General: no acute distress and stated age Head: normocephalic, no masses, lesions, tenderness or abnormalities Eyes: conjunctiva are pink and non-injected, sclera clear Neck: supple, no adenopathy, no bruits, normal jugular venous pulse, no hepatojugular reflux Chest: normal shape and normal respiratory effort Lungs: clear to auscultation and percussion Cardiac Exam: - regular rate & rhythm, no murmurs gallops or rubs - normal S1, normal S2 Pulses: 2(+) throughout Abdomen: abdomen soft, non-tender, no abnormal masses and no hepatosplenomegaly Musculoskeletal: no gait disturbance, no joint inflammation, no deforming arthritis Extremities: no edema and no cyanosis Neuro: grossly normal exam Results & Data ([facility]) Vital Signs (Past 12 Hours) Vital Signs Temp Pulse Pulse Pulse Resp BP Pulse Ox 03/13/21 11:00 36.8 C 98 H 18 96/59 L 96 03/13/21 09:51 104 H 03/13/21 07:35 37.0 C 89 16 109/64 95 03/13/21 04:13 36.9 C 111 H 18 103/71 94 Laboratory Results Laboratory Results - last 24 hr 03/12/21 03/12/21 03/12/21 15:27 15:27 15:27 WBC 13.02 H RBC 4.64 L Hgb 15.0 Hct 44.6 MCV 96.1 MCH 32.3 MCHC 33.6 RDW Std Deviation 48.7 H RDW Coeff of Javy 13.7 Plt Count 184 MPV 9.9 Immature Gran % (Auto) 0.3 Neut % (Auto) 83.2 Lymph % (Auto) 10.4 [place] % (Auto) 5.8 Eos % (Auto) 0.1 Baso % (Auto) 0.2 Neut # (Auto) 10.83 H Lymph # (Auto) 1.36 [place] # (Auto) 0.76 H Eos # (Auto) 0.01 Baso # (Auto) 0.02 Immature Gran # (Auto) 0.04 H PT 10.0 INR 1.0 APTT 27.1 PTT Ratio 1.0 Sodium 132 L Potassium 3.6 Chloride 99 Carbon Dioxide 25 Anion Gap 8.0 BUN 17 Creatinine 1.24 Est Cr Clr Drug Dosing 91.7 Est GFR ( Amer) 79.2 Est GFR (Non-Af Amer) 68.3 BUN/Creatinine Ratio 13.8 Glucose 178 H Estimat Average Glucose Hemoglobin A1c Calcium 9.0 Magnesium 1.7 L Total Bilirubin 1.7 H AST 57 H ALT 47 Alkaline Phosphatase 50 Troponin I 0.079 H* Total Protein 7.6 Albumin 4.1 Globulin 3.5 Albumin/Globulin Ratio 1.2 Triglycerides Cholesterol LDL Cholesterol, Calc VLDL Cholesterol, Calc HDL Cholesterol Cholesterol/HDL Ratio Lipase 105 Procalcitonin TSH 1.220 COVID-19 Eval Order SARS-CoV-2 (PCR) 03/12/21 03/12/21 03/12/21 15:27 17:15 17:15 WBC RBC Hgb Hct MCV MCH MCHC RDW Std Deviation RDW Coeff of Javy Plt Count MPV Immature Gran % (Auto) Neut % (Auto) Lymph % (Auto) [place] % (Auto) Eos % (Auto) Baso % (Auto) Neut # (Auto) Lymph # (Auto) [place] # (Auto) Eos # (Auto) Baso # (Auto) Immature Gran # (Auto) PT INR APTT PTT Ratio Sodium Potassium Chloride Carbon Dioxide Anion Gap BUN Creatinine Est Cr Clr Drug Dosing Est GFR ( Amer) Est GFR (Non-Af Amer) BUN/Creatinine Ratio Glucose Estimat Average Glucose Hemoglobin A1c Calcium Magnesium Total Bilirubin AST ALT Alkaline Phosphatase Troponin I Total Protein Albumin Globulin Albumin/Globulin Ratio Triglycerides Cholesterol LDL Cholesterol, Calc VLDL Cholesterol, Calc HDL Cholesterol Cholesterol/HDL Ratio Lipase Procalcitonin < 0.05 TSH COVID-19 Eval Order Covid19 at [facility] SARS-CoV-2 (PCR) NEGATIVE 03/13/21 03/13/21 03/13/21 00:29 06:22 06:22 WBC 7.10 RBC 4.18 L Hgb 13.4 L Hct 40.1 L MCV 95.9 MCH 32.1 MCHC 33.4 RDW Std Deviation 49.1 H RDW Coeff of Javy 13.9 Plt Count 140 MPV 9.9 Immature Gran % (Auto) Neut % (Auto) Lymph % (Auto) [place] % (Auto) Eos % (Auto) Baso % (Auto) Neut # (Auto) Lymph # (Auto) [place] # (Auto) Eos # (Auto) Baso # (Auto) Immature Gran # (Auto) PT INR APTT PTT Ratio Sodium 134 L Potassium 4.1 Chloride 102 Carbon Dioxide 25 Anion Gap 6.0 BUN 16 Creatinine 1.12 Est Cr Clr Drug Dosing 101.0 Est GFR ( Amer) 89.5 Est GFR (Non-Af Amer) 77.3 BUN/Creatinine Ratio 14.3 Glucose 137 H Estimat Average Glucose Hemoglobin A1c Calcium 8.4 L Magnesium Total Bilirubin 2.3 H AST 182 H ALT 101 H Alkaline Phosphatase 55 Troponin I 0.170 H* Total Protein 6.6 Albumin 3.3 L Globulin 3.3 Albumin/Globulin Ratio 1.0 Triglycerides 145 Cholesterol 220 H LDL Cholesterol, Calc 107 VLDL Cholesterol, Calc 29 HDL Cholesterol 84 Cholesterol/HDL Ratio 3 Lipase Procalcitonin TSH COVID-19 Eval Order SARS-CoV-2 (PCR) 03/13/21 03/13/21 06:22 12:14 WBC RBC Hgb Hct MCV MCH MCHC RDW Std Deviation RDW Coeff of Javy Plt Count MPV Immature Gran % (Auto) Neut % (Auto) Lymph % (Auto) [place] % (Auto) Eos % (Auto) Baso % (Auto) Neut # (Auto) Lymph # (Auto) [place] # (Auto) Eos # (Auto) Baso # (Auto) Immature Gran # (Auto) PT INR APTT PTT Ratio Sodium Potassium Chloride Carbon Dioxide Anion Gap BUN Creatinine Est Cr Clr Drug Dosing Est GFR ( Amer) Est GFR (Non-Af Amer) BUN/Creatinine Ratio Glucose Estimat Average Glucose 97 Hemoglobin A1c 5.0 Calcium Magnesium Total Bilirubin AST ALT Alkaline Phosphatase Troponin I 0.150 H* Total Protein Albumin Globulin Albumin/Globulin Ratio Triglycerides Cholesterol LDL Cholesterol, Calc VLDL Cholesterol, Calc HDL Cholesterol Cholesterol/HDL Ratio Lipase Procalcitonin TSH COVID-19 Eval Order SARS-CoV-2 (PCR) Medications Administered Current Inpatient Medications Acetaminophen (Acetaminophen 325 Mg Tab) 650 mg PO Q4H PRN PRN Reason: Pain or Fever Stop: 04/11/21 18:58 Aspirin (Aspirin 81 Mg Ectab) 81 mg PO QAM VINAY Stop: 04/12/21 11:29 Last Admin: 03/13/21 12:30 Dose: 81 mg Documented by: Gabapentin (Gabapentin 400 Mg Cap) 400 mg PO Q8H VINAY Stop: 03/14/21 14:01 Gabapentin (Gabapentin 400 Mg Cap) 400 mg PO Q12H [facility]INAY Stop: 03/15/21 12:01 Gabapentin (Gabapentin 400 Mg Cap) 400 mg PO Q24H [facility]AY Stop: 03/16/21 12:01 Lorazepam (Ativan) 1 mg in 2 mls @ 2 mls/min IV ONE PRN; Protocol PRN Reason: EtoH Withdrawal AWSS 6-10 Stop: 04/11/21 21:15 Lorazepam (Lorazepam 1 Mg Tab) 1 - 3 mg PO UD PRN; Protocol PRN Reason: EtoH Withdrawal AWSS 6-10+ Stop: 04/11/21 21:15 Metoprolol Tartrate (Metoprolol Tartrate 25 Mg Tab) 12.5 mg PO BID [facility] Stop: 04/12/21 20:59
--- NOTE | 2021-03-13 16:53 | Electrocardiogram Report ---
Test Reason : Blood Pressure : / mmHG Vent. Rate : 203 BPM Atrial Rate : 203 BPM P-R Int : 000 ms QRS Dur : 080 ms QT Int : 222 ms P-R-T Axes : 000 086 264 degrees QTc Int : 408 ms Supraventricular tachycardia Abnormal ECG When compared with ECG of 15-MAR-2020 00:14, Vent. rate has increased BY 94 BPM T wave inversion no longer evident in Lateral leads Confirmed by Eduardo Medley ([id number]) on 03/13/2021 4:53:05 PM Referred By: REFERRED SELF Confirmed By:Eduardo Medley
--- NOTE | 2021-03-13 16:53 | Electrocardiogram Report ---
Test Reason : Blood Pressure : / mmHG Vent. Rate : 113 BPM Atrial Rate : 113 BPM P-R Int : 132 ms QRS Dur : 082 ms QT Int : 330 ms P-R-T Axes : 067 073 043 degrees QTc Int : 452 ms Sinus tachycardia Left atrial enlargement Left ventricular hypertrophy Abnormal ECG When compared with ECG of 12-MAR-2021 15:19, (unconfirmed) Vent. rate has decreased BY 90 BPM T wave inversion no longer evident in Inferior leads Confirmed by Eduardo Medley ([id number]) on 03/13/2021 4:53:22 PM Referred By: REFERRED SELF Confirmed By:Eduardo Medley
[2021-03-13] MEDS: METOPROLOL TARTRATE 25 MG TAB PO SCH (22:00)
[2021-03-14] MEDS: GABAPENTIN 400 MG CAP PO SCH ×2 (05:56→14:57)
[2021-03-14 06:00] LABS: Basophils # (auto) 0.02 K/uL (0-0.2); Basophils % (auto) 0.2 %; Eosinophils # (auto) 0.03 K/uL (0-0.5); Eosinophils % (auto) 0.4 %; Hematocrit (blood only) 38.3 % (42-52); Immature Granulocytes # (auto) 0.02 K/uL (0.00-0.02); Immature Granulocytes % (auto) 0.2 %; Lymphocytes # (auto) 2.11 K/uL (1.2-3.4); Lymphocytes % (auto) 24.6 %; Mean Corpuscular Hemoglobin 32.6 pg (25-34); Mean Corpuscular Hgb Conc 33.9 g/dL (32-36); Mean Platelet Volume 10.1 fL (7.4-10.4); Monocytes # (auto) 0.85 K/uL (0.11-0.59); Monocytes % (auto) 9.9 %; Neutrophils # (auto) 5.54 K/uL (1.4-6.5); Neutrophils % (auto) 64.7 %; Platelet Count 149 K/uL (130-400); RDW Coefficient of Variation 13.8 % (11.5-14.5); RDW Standard Deviation 48.7 fL (36.4-46.3); Red Blood Count 3.99 M/uL (4.7-6.1); White Blood Count 8.57 K/uL (4.8-10.8)
[2021-03-14 06:30] LABS: Albumin Level 3.2 gm/dl (3.4-5.0); Calcium 8.2 mg/dl (8.5-10.1); Est GFR (African American) 74.8 ml/min; Est GFR (Non-African American) 64.5 ml/min; Magnesium 2.6 mg/dl (1.8-2.4)
[2021-03-14 06:32] LABS: Albumin Globulin Ratio 0.9 (0.9-2); Bilirubin,Total 2.5 mg/dl (0.2-1); Globulin 3.4 gm/dl (2.5-4.0); Total Protein 6.6 gm/dl (6.4-8.2)
[2021-03-14] MEDS: LORazepam 1 MG TAB PO PRN (08:55)
[2021-03-14] MEDS: ASPIRIN 81 MG ECTAB PO SCH (08:56)
[2021-03-14] MEDS: METOPROLOL TARTRATE 25 MG TAB PO SCH (08:57)
--- NOTE | 2021-03-14 09:41 | Cardiology Progress Note ---
Date of Service March 14, 2021 Assessment & Plan (1) SVT (supraventricular tachycardia): (2) Elevated troponin I level: (3) Alcohol abuse: (4) Alcoholic cardiomyopathy: Plan: The patient has not had any additional SVT for 24 hours. His echocardiogram reveals an alcoholic cardiomyopathy. I have switched him over to long-acting metoprolol. I have also started him on an GURJIT inhibitor, lisinopril 5 mg daily. I think the patient should remain with us until we are certain he is not going to go through withdrawal. Admission and Anticipated Discharge Date Admission Date: March 12, 2021 Subjective The patient is alert and oriented but states he may be going through withdrawal. He had some sweating last night and is starting to feel uncomfortable. Review of Systems Review of Systems: Review of Systems: See HPI for pertinent positives. All other 10 point review of systems are negative. Physical Exam Physical Exam: General: no acute distress and stated age Head: normocephalic, no masses, lesions, tenderness or abnormalities Eyes: conjunctiva are pink and non-injected, sclera clear Neck: supple, no adenopathy, no bruits, normal jugular venous pulse, no hepatojugular reflux Chest: normal shape and normal respiratory effort Lungs: clear to auscultation and percussion Cardiac Exam: - regular rate & rhythm, no murmurs gallops or rubs - normal S1, normal S2 Pulses: 2(+) throughout Abdomen: abdomen soft, non-tender, no abnormal masses and no hepatosplenomegaly Musculoskeletal: no gait disturbance, no joint inflammation, no deforming arthritis Extremities: no edema and no cyanosis Neuro: grossly normal exam Results & Data ([facility]) Vital Signs (Past 12 Hours) Vital Signs Temp Pulse Pulse Resp BP Pulse Ox 03/14/21 07:55 36.5 C 100 H 19 129/95 95 03/14/21 04:16 36.8 C 95 H 18 115/86 96 03/13/21 23:50 36.6 C 109 H 18 119/87 96 03/13/21 23:04 106 H Laboratory Results Laboratory Results - last 24 hr 03/13/21 03/14/21 03/14/21 12:14 00:47 05:43 WBC 8.57 RBC 3.99 L Hgb 13.0 L Hct 38.3 L MCV 96.0 MCH 32.6 MCHC 33.9 RDW Std Deviation 48.7 H RDW Coeff of Javy 13.8 Plt Count 149 MPV 10.1 Immature Gran % (Auto) 0.2 Neut % (Auto) 64.7 Lymph % (Auto) 24.6 [place] % (Auto) 9.9 Eos % (Auto) 0.4 Baso % (Auto) 0.2 Neut # (Auto) 5.54 Lymph # (Auto) 2.11 Jack # (Auto) 0.85 H Eos # (Auto) 0.03 Baso # (Auto) 0.02 Immature Gran # (Auto) 0.02 Sodium Potassium Chloride Carbon Dioxide Anion Gap BUN Creatinine Est Cr Clr Drug Dosing Est GFR ( Amer) Est GFR (Non-Af Amer) POC Glucose 134 H Fasting Glucose Calcium Magnesium Total Bilirubin AST ALT Alkaline Phosphatase Troponin I 0.150 H* Total Protein Albumin Globulin Albumin/Globulin Ratio 03/14/21 05:43 WBC RBC Hgb Hct MCV MCH MCHC RDW Std Deviation RDW Coeff of Javy Plt Count MPV Immature Gran % (Auto) Neut % (Auto) Lymph % (Auto) [place] % (Auto) Eos % (Auto) Baso % (Auto) Neut # (Auto) Lymph # (Auto) [place] # (Auto) Eos # (Auto) Baso # (Auto) Immature Gran # (Auto) Sodium 131 L Potassium 4.0 Chloride 100 Carbon Dioxide 24 Anion Gap 7.0 BUN 31 H D Creatinine 1.30 Est Cr Clr Drug Dosing 87.0 Est GFR ( Amer) 74.8 Est GFR (Non-Af Amer) 64.5 POC Glucose Fasting Glucose 120 H Calcium 8.2 L Magnesium 2.6 H Total Bilirubin 2.5 H AST 314 H ALT 215 H Alkaline Phosphatase 72 Troponin I Total Protein 6.6 Albumin 3.2 L Globulin 3.4 Albumin/Globulin Ratio 0.9 Medications Administered Current Inpatient Medications Acetaminophen (Acetaminophen 325 Mg Tab) 650 mg PO Q4H PRN PRN Reason: Pain or Fever Stop: 04/11/21 18:58 Aspirin (Aspirin 81 Mg Ectab) 81 mg PO QAM [facility] Stop: 04/12/21 11:29 Last Admin: 03/14/21 08:56 Dose: 81 mg Documented by: Gabapentin (Gabapentin 400 Mg Cap) 400 mg PO Q8H [facility] Stop: 03/14/21 14:01 Last Admin: 03/14/21 05:56 Dose: 400 mg Documented by: Gabapentin (Gabapentin 400 Mg Cap) 400 mg PO Q12H [facility] Stop: 03/15/21 12:01 Gabapentin (Gabapentin 400 Mg Cap) 400 mg PO Q24H [facility] Stop: 03/16/21 12:01 Lorazepam (Ativan) 1 mg in 2 mls @ 2 mls/min IV ONE PRN; Protocol PRN Reason: EtoH Withdrawal AWSS 6-10 Stop: 04/11/21 21:15 Lisinopril (L[facility]opril 5 Mg Tab) [facility] [place] Stop: 04/13/21 09:44 Lorazepam (Lorazepam 1 Mg Tab) 1 - 3 mg PO UD PRN; Protocol PRN Reason: EtoH Withdrawal AWSS 6-10+ Stop: 04/11/21 21:15 Last Admin: 03/14/21 08:55 Dose: 1 mg Documented by: Metoprolol Succinate (Metoprolol Succ 25mg Ext Rel Tab) 25 mg PO QAM [facility] Stop: 04/14/21 08:59
[2021-03-14] MEDS ORDERED: bisacodyL 10 MG SUPP PR PRN (10:34)
--- NOTE | 2021-03-14 10:34 | Hospitalist Progress Note ---
Date of Service March 14, 2021 Assessment & Plan (1) SVT (supraventricular tachycardia): Plan: Presentation with SVTagree overall picture consistent with holiday heart; noted switch to metoprolol succinate given LV systolic dysfunction (2) Biventricular failure: Plan: Chronic systolic left ventricular heart failure, concentric LV hypertrophy, right ventricular dysfunctionleft ventricular dysfunction likely alcohol induced; right ventricular somewhat unusual but cardiology followingwill defer; no pulmonary hypertension noted; at some point might benefit from right heart cath (3) Elevated troponin I level: Plan: Probably demand, type IIaspirin reasonable (4) Acute hyponatremia: Plan: Mildfollow; at present no intervention needed (5) Hypertension: Plan: Acceptable readings; at present evidence-based therapy for LV systolic dysfunction being initiated (6) Alcohol abuse: Plan: Recommend cessation; withdrawal scale (7) Abnormal LFTs: Plan: Likely alcohol induced, AST more than ALT; follow for nowrepeat INR; as yet, discriminant function not likely to be more than 32 Plan: Replace magnesium as appropriate Mild blood-stained sputum -follow; treat constipation Admission and Anticipated Discharge Date Admission Date: March 12, 2021 Subjective Main complaint is shortness of breath on exertion; constipated. Physical Exam Physical Exam: Constitutional and general: No acute distress, looks biologic age Head and face: No puffiness, atraumatic, flushed appearance Eyes: mild scleral icterus, extraocular movements normal Neck: Supple, no JVD Musculoskeletal: No acute joint swelling, no bony abnormalities Skin/dermatologic/integument: No rash, no purpura Hematologic and lymphatic: pallor +, no petechia Gastrointestinal/abdomen: Nondistended, soft, nonacute Neurologic: Cranial nerves intact, nonfocal, mildly tremulous Psychiatry: Awake, alert, pleasant, communicative Cardiovascular: Heart rhythm regular, no rub, no murmur, no gallop Respiratory: Chest movements equal, no use of accessory muscles, no adventitious sounds Extremities: No edema, no cyanosis Results & Data Results & Data ([facility]) Vital Signs (Past 12 Hours) Vital Signs Temp Pulse Pulse Resp BP Pulse Ox 03/14/21 10:25 36.6 C 93 H 19 111/79 96 03/14/21 07:55 36.5 C 100 H 19 129/95 95 03/14/21 04:16 36.8 C 95 H 18 115/86 96 03/13/21 23:50 36.6 C 109 H 18 119/87 96 03/13/21 23:04 106 H PG Care Time/CCT Total # of Minutes Spent Total Time Spent with Patient: Total time spent is greater than 50% in coordination of care (as documented) at patient's floor/unit and/or counseling patient: Coding Level of Care Code 08345 Subseq Hosp Care Lvl 2 Diagnoses SVT (supraventricular tachycardia) I47.1 Elevated troponin I level R77.8 Acute hyponatremia E87.1 Hypertension I10 Alcohol abuse F10.10 Abnormal LFTs R94.5 Biventricular failure I50.82
[2021-03-14] MEDS ORDERED: POLYETHYLENE (MIRALAX) 17 GM PACK PO STA (10:38)
[2021-03-14] MEDS: lisinopril 5 MG TAB PO SCH (11:22)
[2021-03-15] MEDS: GABAPENTIN 400 MG CAP PO SCH ×2 (01:23→11:21)
[2021-03-15] MEDS: LORazepam 1 MG TAB PO PRN (01:34)
[2021-03-15 07:50] LABS: Prothrombin Time 10.6 Seconds (9.0-12.0)
[2021-03-15 08:02] LABS: Basophils # (auto) 0.02 K/uL (0-0.2); Basophils % (auto) 0.3 %; Eosinophils % (auto) 1.5 %; Hematocrit (blood only) 37.6 % (42-52); Hemoglobin 12.8 g/dL (14.0-18.0); Immature Granulocytes # (auto) 0.02 K/uL (0.00-0.02); Immature Granulocytes % (auto) 0.3 %; Lymphocytes # (auto) 1.66 K/uL (1.2-3.4); Lymphocytes % (auto) 25.6 %; Mean Corpuscular Hemoglobin 32.2 pg (25-34); Mean Corpuscular Volume 94.7 fL (80-100); Mean Platelet Volume 10.3 fL (7.4-10.4); Monocytes # (auto) 0.56 K/uL (0.11-0.59); Monocytes % (auto) 8.6 %; Neutrophils # (auto) 4.12 K/uL (1.4-6.5); Neutrophils % (auto) 63.7 %; Platelet Count 182 K/uL (130-400); RDW Coefficient of Variation 13.9 % (11.5-14.5); RDW Standard Deviation 48.2 fL (36.4-46.3); Red Blood Count 3.97 M/uL (4.7-6.1); White Blood Count 6.48 K/uL (4.8-10.8)
[2021-03-15] MEDS: lisinopril 5 MG TAB PO SCH (08:04)
[2021-03-15] MEDS: ASPIRIN 81 MG ECTAB PO SCH (08:04)
[2021-03-15 08:18] LABS: RBC Morphology Unremarkable
[2021-03-15 08:26] LABS: Albumin Globulin Ratio 0.9 (0.9-2); Albumin Level 2.9 gm/dl (3.4-5.0); Bilirubin,Total 1.4 mg/dl (0.2-1); Calcium 8.6 mg/dl (8.5-10.1); Creatinine Clr Calc Pharmacy 113.1 ml/min; Est GFR (African American) 102.7 ml/min; Est GFR (Non-African American) 88.6 ml/min; Globulin 3.3 gm/dl (2.5-4.0); Magnesium 2.6 mg/dl (1.8-2.4); Potassium 4.4 mmol/L (3.5-5.1); Total Protein 6.2 gm/dl (6.4-8.2)
[2021-03-15] MEDS ORDERED: METOPROLOL SUCC 25MG EXT REL TAB PO SCH (09:00)
[2021-03-15] MEDS ORDERED: POLYETHYLENE (MIRALAX) 17 GM PACK PO SCH (09:00)
--- NOTE | 2021-03-15 12:00 | Cardiology Progress Note ---
Date of Service March 15, 2021 Assessment & Plan (1) SVT (supraventricular tachycardia): (2) Elevated troponin I level: (3) Alcohol abuse: (4) Alcoholic cardiomyopathy: Plan: I increased the patient's lisinopril to 10 mg daily. At this point I think he can be discharged home. He needs outpatient alcohol rehab. I will arrange follow-up with our clinic as an outpatient. Admission and Anticipated Discharge Date Admission Date: March 12, 2021 Subjective The patient feels well and would like to go home today. I reemphasized to him the need to abstain from alcohol. He also needs to start an outpatient rehab program. Review of Systems Review of Systems: Review of Systems: See HPI for pertinent positives. All other 10 point review of systems are negative. Physical Exam Physical Exam: General: no acute distress and stated age Head: normocephalic, no masses, lesions, tenderness or abnormalities Eyes: conjunctiva are pink and non-injected, sclera clear Neck: supple, no adenopathy, no bruits, normal jugular venous pulse, no hepatojugular reflux Chest: normal shape and normal respiratory effort Lungs: clear to auscultation and percussion Cardiac Exam: - regular rate & rhythm, no murmurs gallops or rubs - normal S1, normal S2 Pulses: 2(+) throughout Abdomen: abdomen soft, non-tender, no abnormal masses and no hepatosplenomegaly Musculoskeletal: no gait disturbance, no joint inflammation, no deforming arthritis Extremities: no edema and no cyanosis Neuro: grossly normal exam Results & Data ([facility]) Vital Signs (Past 12 Hours) Vital Signs Temp Pulse Pulse Pulse Resp BP Pulse Ox 03/15/21 11:01 36.8 C 77 17 133/92 98 03/15/21 08:03 36.4 C L 86 17 133/90 98 03/15/21 05:00 36.7 C 77 18 139/90 95 03/15/21 03:53 86 03/15/21 03:01 36.7 C 80 16 127/91 97 03/15/21 01:25 37 C 83 18 142/106 H 96 Laboratory Results Laboratory Results - last 24 hr 03/15/21 03/15/21 03/15/21 07:19 07:19 07:19 WBC Cancelled RBC Cancelled Hgb Cancelled Hct Cancelled MCV Cancelled MCH Cancelled MCHC Cancelled RDW Std Deviation Cancelled RDW Coeff of Javy Cancelled Plt Count Cancelled MPV Cancelled Immature Gran % (Auto) Cancelled Neut % (Auto) Cancelled Lymph % (Auto) Cancelled [place] % (Auto) Cancelled Eos % (Auto) Cancelled Baso % (Auto) Cancelled Neut # (Auto) Cancelled Lymph # (Auto) Cancelled [place] # (Auto) Cancelled Eos # (Auto) Cancelled Baso # (Auto) Cancelled Immature Gran # (Auto) Cancelled Absolute Nucleated RBC Cancelled Nucleated RBC % (auto) Cancelled Neutrophils % (Manual) Cancelled Band Neutrophils % Cancelled Lymphocytes % (Manual) Cancelled Prolymphocyte % Cancelled Reactive Lymphs % (Man) Cancelled Monocytes % (Manual) Cancelled Eosinophils % (Manual) Cancelled Basophils % (Manual) Cancelled Metamyelocytes % (Man) Cancelled Myelocytes % (Man) Cancelled Promyelocytes % (Man) Cancelled Blast Cells % (Manual) Cancelled Plasma Cell % (Manual) Cancelled Other Cells % Cancelled Nucleated RBC % Cancelled Neutrophils # (Manual) Cancelled Band Neutrophils # Cancelled Total Absolute Neuts Cancelled Lymphocytes # (Manual) Cancelled Prolymphocyte # Cancelled Reactive Lymphs # Cancelled Total Abs Lymphocytes Cancelled Monocytes # (Manual) Cancelled Eosinophils # (Manual) Cancelled Basophils # (Manual) Cancelled Metamyelocytes # (Man) Cancelled Myelocytes # (Manual) Cancelled Promyelocytes # (Man) Cancelled Blast Cells # (Man) Cancelled Plasma Cell # (Manual) Cancelled Other Cells # Cancelled Nucleated RBCs # (Man) Cancelled Hypersegmented Neuts Cancelled Hyposegmented Neuts Cancelled Hypogranular Neuts Cancelled Large Granular Lymphs Cancelled # Lrg Granular Lymphs Cancelled Hairy Cells Cancelled Smudge Cells Cancelled Toxic Granulation Cancelled Toxic Vacuolation Cancelled Dohle Bodies Cancelled Kd Rods Cancelled Platelet Estimate Cancelled Hypogranular Platelets Cancelled Clumped Platelets Cancelled Giant Platelets Cancelled Platelet Satelliting Cancelled RBC Morphology Cancelled Polychromasia Cancelled Hypochromasia Cancelled Poikilocytosis Cancelled Basophilic Stippling Cancelled Anisocytosis Cancelled Microcytosis Cancelled Macrocytosis Cancelled Spherocytes Cancelled Pappenheimer Bodies Cancelled Sickle Cells Cancelled Target Cells Cancelled Tear Drop Cells Cancelled Ovalocytes Cancelled Stomatocytes Cancelled Lainez-Rudyard Bodies Cancelled Echinocytes Cancelled Acanthocytes (Spur) Cancelled Rouleaux Cancelled RBC Agglutinates Cancelled Schistocytes Cancelled RBC Morph Comment Cancelled Sezary Cell Cancelled PT 10.6 INR 1.0 Sodium 137 Potassium 4.4 Chloride 106 Carbon Dioxide 27 Anion Gap 4.0 BUN 22 H Creatinine 1.00 D Est Cr Clr Drug Dosing 113.1 Est GFR ( Amer) 102.7 Est GFR (Non-Af Amer) 88.6 Fasting Glucose 92 Calcium 8.6 Magnesium 2.6 H Total Bilirubin 1.4 H AST 288 H ALT 308 H Alkaline Phosphatase 68 Total Protein 6.2 L Albumin 2.9 L Globulin 3.3 Albumin/Globulin Ratio 0.9 03/15/ 07:19 WBC 6.48 RBC 3.97 L Hgb 12.8 L Hct 37.6 L MCV 94.7 MCH 32.2 MCHC 34.0 RDW Std Deviation 48.2 H RDW Coeff of Javy 13.9 Plt Count 182 MPV 10.3 Immature Gran % (Auto) 0.3 Neut % (Auto) 63.7 Lymph % (Auto) 25.6 [place] % (Auto) 8.6 Eos % (Auto) 1.5 Baso % (Auto) 0.3 Neut # (Auto) 4.12 Lymph # (Auto) 1.66 [place] # (Auto) 0.56 Eos # (Auto) 0.10 Baso # (Auto) 0.02 Immature Gran # (Auto) 0.02 Absolute Nucleated RBC Nucleated RBC % (auto) Neutrophils % (Manual) Band Neutrophils % Lymphocytes % (Manual) Prolymphocyte % Reactive Lymphs % (Man) Monocytes % (Manual) Eosinophils % (Manual) Basophils % (Manual) Metamyelocytes % (Man) Myelocytes % (Man) Promyelocytes % (Man) Blast Cells % (Manual) Plasma Cell % (Manual) Other Cells % Nucleated RBC % Neutrophils # (Manual) Band Neutrophils # Total Absolute Neuts Lymphocytes # (Manual) Prolymphocyte # Reactive Lymphs # Total Abs Lymphocytes Monocytes # (Manual) Eosinophils # (Manual) Basophils # (Manual) Metamyelocytes # (Man) Myelocytes # (Manual) Promyelocytes # (Man) Blast Cells # (Man) Plasma Cell # (Manual) Other Cells # Nucleated RBCs # (Man) Hypersegmented Neuts Hyposegmented Neuts Hypogranular Neuts Large Granular Lymphs # Lrg Granular Lymphs Hairy Cells Smudge Cells Toxic Granulation Toxic Vacuolation Dohle Bodies Kd Rods Platelet Estimate Hypogranular Platelets Clumped Platelets Giant Platelets Platelet Satelliting RBC Morphology Unremarkable Polychromasia Hypochromasia Poikilocytosis Basophilic Stippling Anisocytosis Microcytosis Macrocytosis Spherocytes Pappenheimer Bodies Sickle Cells Target Cells Tear Drop Cells Ovalocytes Stomatocytes Lainez-Rudyard Bodies Echinocytes Acanthocytes (Spur) Rouleaux RBC Agglutinates Schistocytes RBC Morph Comment Sezary Cell PT INR Sodium Potassium Chloride Carbon Dioxide Anion Gap BUN Creatinine Est Cr Clr Drug Dosing Est GFR ( Amer) Est GFR (Non-Af Amer) Fasting Glucose Calcium Magnesium Total Bilirubin AST ALT Alkaline Phosphatase Total Protein Albumin Globulin Albumin/Globulin Ratio Medications Administered Current Inpatient Medications Acetaminophen (Acetaminophen 325 Mg Tab) 650 mg PO Q4H PRN PRN Reason: Pain or Fever Stop: 04/11/21 18:58 Aspirin (Aspirin 81 Mg Ectab) [facility] Stop: 04/12/21 11:29 Last Admin: 03/15/21 08:04 Dose: 81 mg Documented by: Bisacodyl (Bisacodyl 10 Mg Supp) 10 mg FL DAILY PRN PRN Reason: Constipation Stop: 04/13/21 10:33 Gabapentin (Gabapentin 400 Mg Cap) 400 mg PO Q12H [facility] Stop: 03/15/21 12:01 Last Admin: 03/15/21 11:21 Dose: 400 mg Documented by: Gabapentin (Gabapentin 400 Mg Cap) 400 mg PO Q24H [facility] Stop: 03/16/21 12:01 Lorazepam (Ativan) 1 mg in 2 mls @ 2 mls/min IV ONE PRN; Protocol PRN Reason: EtoH Withdrawal AWSS 6-10 Stop: 04/11/21 21:15 Lisinopril (Lisinopril 10 Mg Tab) 10 mg PO QAM [facility] Stop: 04/15/21 08:59 Lorazepam (Lorazepam 1 Mg Tab) 1 - 3 mg PO UD PRN; Protocol PRN Reason: EtoH Withdrawal AWSS 6-10+ Stop: 04/11/21 21:15 Last Admin: 03/15/21 01:34 Dose: 1 mg Documented by: Metoprolol Succinate (Metoprolol Succ 25mg Ext Rel Tab) 25 mg PO QAM [facility] Stop: 04/14/21 08:59 Last Admin: 03/15/21 08:04 Dose: 25 mg Documented by: Polyethylene Glycol (Polyethylene (Miralax) 17 Gm Pack) 17 gm PO DAILY [facility] Stop: 04/14/21 08:59 Last Admin: 03/15/21 07:58 Dose: Not Given Documented by:
--- NOTE | 2021-03-15 12:26 | Discharge Summary ---
Date of Service March 15, 2021 Admission HPI Per Admitting Provider This is a pleasant 50 yo male who comes into the hospital with complaints of palpitations. Patient reports that this is a chronic problem that has been ongoing for the past 7 years. However, these episodes are short lived and patient responds to valsalva. Howevr, this AM patient had palpiatations but these did not respond to valsalva and patient was brought into the hospital. Patient reports that he has history of alcohol withdrawal, patient reports that he drinks daily. He had a beer yesterday Specialty Data Hospitalist Feels well and desires discharge Exam today: Vitals: Blood pressure 140/92, pulse 77, respirations 17, temperature 36.8 Heartregular Good volume status clinically Discharge Data Consultations 03/12/21 16:27 ED Decision to Admit Stat 03/12/21 18:59 Consult Cardiology Routine Hospital Course (1) SVT (supraventricular tachycardia): Presentation with SVToverall picture consistent with holiday heart; seen by cardiology and switched to metoprolol succinatedoing well at present; outpatient cardiology follow-up (2) Biventricular failure: Chronic systolic left ventricular heart failure, concentric LV hyper trophy, right ventricular dysfunctionleft ventricular dysfunction likely alcohol induced; right ventricular somewhat unusual; at some point might benefit from right heart cath; outpatient cardiology follow-upDr. Manas will arrange; communicated with him and okay to discharge; on metoprolol succinate; lisinopril increased to 10 mg at discharge (3) Elevated troponin I level: Probably demand, type IIaspirin reasonable (4) Alcohol abuse: Recommend cessation; case management has provided resources for enrolling in rehab program; he does not desire inpatient rehab (5) Abnormal LFTs: Likely alcohol induced, AST more than ALT; bilirubin improvedoutpatient GI One episode of mild bloodstained sputumfollow Coding Level of Care Code D/C DAY MANAGEMENT >30 MINS Diagnoses SVT (supraventricular tachycardia) I47.1 Biventricular failure I50.82 Elevated troponin I level R77.8 Alcohol abuse F10.10 Abnormal LFTs R94.5 Time Spent (min) 38
[2021-03-16] MEDS ORDERED: lisinopril 10 MG TAB PO SCH (09:00)
[2021-03-16] MEDS ORDERED: GABAPENTIN 400 MG CAP PO SCH (12:00)
== END 2021-03-15 14:34 | disposition home or self-care (01) | DRG 309 ==
LOC: ED 15:02 → 2S 18:59 → SUATTDRO 18:59 → 2S 20:41
DX: I24.8 Other forms of acute ischemic heart disease; R73.9 Hyperglycemia, unspecified; R00.2 Palpitations; F10.239 Alcohol dependence with withdrawal, unspecified; E83.42 Hypomagnesemia; I42.6 Alcoholic cardiomyopathy; R77.8 Other specified abnormalities of plasma proteins; I47.1 Supraventricular tachycardia; I50.82 Biventricular heart failure; I11.0 Hypertensive heart disease with heart failure; I50.22 Chronic systolic (congestive) heart failure; Z82.49 Family history of ischemic heart disease and other diseases of the circulatory system; E87.1 Hypo-osmolality and hyponatremia

== ENCOUNTER 2022-03-21 04:34 | Inpatient (IN) ==
[2022-03-21] MEDS ORDERED: ADENOSINE IV SOLN 3 MG/ML 2 ML VIAL IV ONE (04:54)
[2022-03-21] MEDS ORDERED: METOPROLOL TARTRATE 1 MG/ML VIAL IV ONE (04:57)
[2022-03-21] MEDS ORDERED: MULTI-VITAMIN INFUSION 10 ML, THIAMINE HCL 100 MG, FOLIC ACID 1 MG in SODIUM CHLORIDE 0... IV ONE (05:00)
[2022-03-21 05:14] LABS: Basophils # (auto) 0.08 K/uL (0-0.2); Basophils % (auto) 0.6 %; Eosinophils # (auto) 0.05 K/uL (0-0.50); Eosinophils % (auto) 0.4 %; Immature Granulocytes # (auto) 0.05 K/uL (0.00-0.02); Immature Granulocytes % (auto) 0.4 %; Lymphocytes # (auto) 2.41 K/uL (1.2-3.4); Lymphocytes % (auto) 17.8 %; Mean Corpuscular Hemoglobin 31.6 pg (25.0-34.0); Mean Corpuscular Hgb Conc 34.1 g/dL (32.0-36.0); Mean Corpuscular Volume 92.6 fL (80.0-100.0); Mean Platelet Volume 9.8 fL (9.4-12.4); Monocytes # (auto) 0.77 K/uL (0.24-0.82); Monocytes % (auto) 5.7 %; Neutrophils # (auto) 10.16 K/uL (1.4-6.5); Neutrophils % (auto) 75.1 %; Platelet Count 266 K/uL (130-400); RDW Coefficient of Variation 13.2 % (11.5-14.5); RDW Standard Deviation 44.7 fL (36.4-46.3); Red Blood Count 4.75 M/uL (4.63-6.08); White Blood Count 13.52 K/ul (4.8-10.8)
[2022-03-21 05:40] LABS: Albumin Globulin Ratio 1.5 (0.9-2); Albumin Level 4.3 gm/dl (3.4-5.0); BUN Creatinine Ratio 16.1 (10-20); Bilirubin,Total 0.5 mg/dl (0.2-1.0); Calcium 8.8 mg/dl (8.5-10.1); Creatinine Clr Calc Pharmacy 103.1 ml/min; Est GFR (African American) 88.9 ml/min; Est GFR (Non-African American) 76.7 ml/min; Globulin 2.8 gm/dl (2.5-4.0); Phosphorus 2.5 mg/dl (2.5-4.9); Potassium 3.6 mmol/L (3.5-5.1); Total Protein 7.1 gm/dl (6.0-8.3)
[2022-03-21] MEDS ORDERED: LORazepam 2 MG/1 ML VIAL IV STA (05:42)
--- NOTE | 2022-03-21 06:43 | History & Physical Report ---
Date of Service March 21, 2022 Assessment & Plan (1) Elevated troponin I level: Plan: Most likely rate related demand ischemia. Patient without chest pain currently. EKG with SVT. -Tele monitoring -Trend troponin -Continue ASA 81mg po daily (2) SVT (supraventricular tachycardia): Plan: Has history of AVRT. s/p Adenosine. Now in ST -Telemetry monitoring -Maintain electrolytes -Patient does have a history of CHF with reduced EF - Echo 02/2021 with LVH and EF of 30-35% as well as moderate to severely reduced RV function. 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 He Was previously on a beta caleb therapy. -Since 2020 he has cut back on his drinking -No longer taking Metoprolol or Lisinopril -Consider repeat echocardiogram (3) Alcohol use: Plan: Patient cutting back on EtOH. Did drink hard liquor now 6-8 hard seltzers daily. Reports he has a baseline tremor not related to EtOH. He is aware that he drinks to much and is actively trying to cut back. He does not wish to have any referrals at this time. -AWSS with IV Ativan administered PRN -Thiamine and Folic acid daily F/E/N - Heplock. Electrolytes WNL. Regular diet as tolerated Ppx - Low risk for DVT, encourage ambulation Code - Full Dispo - Admit to medical with telemetry History of Present Illness Chief Complaint: tachycardia Primary Care Provider: Abner Hagen DO Edwin Zuluaga is a 51yo male with history of daily EtOH use, prior SVT presenting from home with SVT. He was at work yesterday afternoon when he felt sudden onset of palpitations, heart racing. He has had SVT in the past and reports that he felt similar to this. He went home and tried to breathe through a straw and perform leg lifts as this has worked for him in the past. He also took some Magnesium and drank some hard Seltzers thinking that EtOH withdrawal may be contributing. He had ongoing palpitations through the night. Diaphoresis and chest tightness. In the ER found to be in SVT. Administered Adenosine x 6mg with resolution to sinus tachycardia. No additional chest pain or SOB. ER Course: Adenosine, Ativan, Metoprolol, Banana bag Allergies Allergy/AdvReac Type Severity Reaction Status Date / Time No Known Allergies Allergy Verified 09/24/21 21:42 Home Medications Medication Instructions Recorded Confirmed Type aspirin 81 mg tablet,delayed 162 mg PO [id number] 09/24/21 09/24/21 History release multivitamin 1 tab PO DAILY 09/24/21 09/24/21 History Past Med/Surg History Medical History (Updated 03/21/22 @ 06:50 by Lay Paiz DO) Acute hyponatremia Chest pain Elevated troponin I level Elevated troponin I level Hypomagnesemia Hypomagnesemia No pertinent past medical history SVT (supraventricular tachycardia) SVT (supraventricular tachycardia) Surgical History History of hernia surgery July 2019 No pertinent past surgical history S/P appendectomy S/P nasal surgery after fracture with repair of the infraorbital rim S/P wisdom tooth extraction Family History Grandfather (Maternal) Myocardial infarction Heart disease Brother Hypertension Sister Hypertension Other No pertinent family history in first degree relatives Denies family history of Ovarian cancer Prostate cancer Breast cancer Lung cancer Colorectal cancer Stroke Social History Smoking Status: Never smoker Second Hand Exposure: No; Hx Alcohol Use: No Hx Substance Use: No Preferred Language: Scottish Communication Ability: Effective Visual Impairment: No Limitations Hearing Ability: Normal Lab Support Service Tech Required: No Beliefs That Will Affect Care: None marital status: Single Current Living Situation: Other Current Living Situation Comment: Roommate and son. 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 How many Children do You have: 0 Feels Safe at Home: Yes Childhood Exposure to Second-Hand Smoke: Yes caffeine: Yes Dental Care, Regularly: No Physical Activity Frequency: Daily Physical Activity Frequency Comment: industrial relations worker Seatbelt Use: always Sunscreen Use: Yes (sometimes) Assistive Devices: None Review of Systems Review of Systems: All systems reviewed & are unremarkable except as noted in HPI & below Physical Exam Physical Exam: General: patient resting comfortably, NAD, non-toxic in appearance, AA&O x 4 Skin: warm, dry, intact, no rashes or lesions HEENT: NC/AT, PERRL, EOMI, anicteric sclera, conjunctiva without injection, external ear normal to inspection and nontender, nares patent, moist mucus membranes, dentition intact, no oropharyngeal lesions, neck supple, trachea midline, no LAD, no thyromegaly, no JVD Heart: +S1/S2, regular, tachycardic, no m/r/g Lungs: equal air entry bilaterally, no rales/rhonchi/wheezes Abd: +BS, soft, NT/ND, no masses/organomegaly/ascites Ext: warm, 2+ pulses in UE/LE bilaterally, no clubbing/cyanosis or edema Neuro: nonfocal, patient AA&O x 4, speech intact, no facial droop, moving all extremities on command with equal strength 5/5 Results & Data Results & Data ([facility]) Vital Signs (Past 12 Hours) Vital Signs Temp Pulse Resp BP Pulse Ox O2 Del Method 03/21/22 06:00 102 H 20 141/98 H 98 Room Air 03/21/22 05:30 92 H 18 120/78 98 Room Air 03/21/22 05:19 94 H 20 120/79 95 Room Air 03/21/22 04:57 113 H 175/125 H 03/21/22 05:01 Room Air 03/21/22 04:41 36.3 C L 196 H 20 170/102 H 95 Room Air Laboratory Results Laboratory Results WBC 13.52 K/ul (4.8-10.8) H 03/21/22 05:00 RBC 4.75 M/uL (4.63-6.08) 03/21/22 05:00 Hgb 15.0 g/dl (14.0-18.0) 03/21/22 05:00 Hct 44.0 % (40.1-51.0) 03/21/22 05:00 MCV 92.6 fL (80.0-100.0) 03/21/22 05:00 MCH 31.6 pg (25.0-34.0) 03/21/22 05:00 MCHC 34.1 g/dL (32.0-36.0) 03/21/22 05:00 RDW Std Deviation 44.7 fL (36.4-46.3) 03/21/22 05:00 RDW Coeff of Javy 13.2 % (11.5-14.5) 03/21/22 05:00 Plt Count 266 K/uL (130-400) 03/21/22 05:00 MPV 9.8 fL (9.4-12.4) 03/21/22 05:00 Immature Gran % (Auto) 0.4 % 03/21/22 05:00 Neut % (Auto) 75.1 % 03/21/22 05:00 Lymph % (Auto) 17.8 % 03/21/22 05:00 [place] % (Auto) 5.7 % 03/21/22 05:00 Eos % (Auto) 0.4 % 03/21/22 05:00 Baso % (Auto) 0.6 % 03/21/22 05:00 Neut # (Auto) 10.16 K/uL (1.4-6.5) H 03/21/22 05:00 Lymph # (Auto) 2.41 K/uL (1.2-3.4) 03/21/22 05:00 [place] # (Auto) 0.77 K/uL (0.24-0.82) 03/21/22 05:00 Eos # (Auto) 0.05 K/uL (0-0.50) 03/21/22 05:00 Baso # (Auto) 0.08 K/uL (0-0.2) 03/21/22 05:00 Immature Gran # (Auto) 0.05 K/uL (0.00-0.02) H 03/21/22 05:00 Sodium 139 mmol/L (136-145) 03/21/22 05:00 Potassium 3.6 mmol/L (3.5-5.1) 03/21/22 05:00 Chloride 105 mmol/L (98-107) 03/21/22 05:00 Carbon Dioxide 22 mmol/L (21-32) 03/21/22 05:00 Anion Gap 12 (3-11) H 03/21/22 05:00 BUN 18 mg/dl (6-23) 03/21/22 05:00 Creatinine 1.12 mg/dl (0.6-1.4) 03/21/22 05:00 Est Cr Clr Drug Dosing 103.1 ml/min 03/21/22 05:00 Est GFR ( Amer) 88.9 ml/min 03/21/22 05:00 Est GFR (Non-Af Amer) 76.7 ml/min 03/21/22 05:00 BUN/Creatinine Ratio 16.1 (10-20) 03/21/22 05:00 Glucose 131 mg/dl (70-99(Fasting)) H 03/21/22 05:00 Calcium 8.8 mg/dl (8.5-10.1) 03/21/22 05:00 Phosphorus 2.5 mg/dl (2.5-4.9) 03/21/22 05:00 Magnesium 2.0 mg/dl (1.7-2.4) 03/21/22 05:00 Total Bilirubin 0.5 mg/dl (0.2-1.0) 03/21/22 05:00 AST 20 U/L (13-39) 03/21/22 05:00 ALT 20 U/L (7-52) 03/21/22 05:00 Alkaline Phosphatase 59 U/L (34-104) 03/21/22 05:00 Troponin I High Sens 82.0 pg/ml (0-20) H* 03/21/22 05:00 Total Protein 7.1 gm/dl (6.0-8.3) 03/21/22 05:00 Albumin 4.3 gm/dl (3.4-5.0) 03/21/22 05:00 Globulin 2.8 gm/dl (2.5-4.0) 03/21/22 05:00 Albumin/Globulin Ratio 1.5 (0.9-2) 03/21/22 05:00 TSH 2.421 uIu/ml (0.300-4.500) 03/21/22 05:00 SARS-CoV-2, RNA, NAAT NEGATIVE (NEGATIVE) 03/21/22 05:20 PG Care Time/CCT Total # of Minutes Spent Total Time Spent with Patient: Total time spent is greater than 50% in coordination of care (as documented) at patient's floor/unit and/or counseling patient: Coding Level of Care Code 24558 Initial Inpt Care Lvl 2 Diagnoses Elevated troponin I level R79.89 SVT (supraventricular tachycardia) I47.1 Alcohol use Z72.89
--- NOTE | 2022-03-21 07:24 | XRay Report ---
XR chest 1V portable HISTORY: 51 years-old Male Dysrhythmia acute atypical chest pain COMPARISON: Chest radiograph 09/24/2021 TECHNIQUE: Portable AP view of the chest FINDINGS: Cardiac silhouette is enlarged. Mild coarsening of the interstitium. No pneumothorax, large pleural e ffusion or lobar airspace consolidation. Mild interstitial coarsening of the lung bases suggestive of atelectasis. Spondylitic spurring of the spine. IMPRESSION: Cardiomegaly with mild coarsening of the interstitium. This may be secondary to technique and patient body habitus, however pulmonary vascular congestion could appear similarly. ACT 112: Negative or not required by law. The above report was generated using voice recognition software. It may contain grammatical, syntax o r spelling errors. Electronically signed by: Rusty Vargas M.D. 03/21/2022 7:23 AM
--- NOTE | 2022-03-21 08:22 | Electrocardiogram Report ---
Test Reason : Blood Pressure : / mmHG Vent. Rate : 115 BPM Atrial Rate : 115 BPM P-R Int : 132 ms QRS Dur : 092 ms QT Int : 314 ms P-R-T Axes : 062 062 035 degrees QTc Int : 434 ms Sinus tachycardia with occasional Premature ventricular complexes Left atrial enlargement Nonspecific ST abnormality Abnormal ECG When compared with ECG of 21-MAR-2022 04:51, Supraventricular tachycardia no longer present Premature ventricular complexes are now Present Vent. rate has decreased BY 83 BPM Confirmed by George Ponce ([id number]) on 03/21/2022 8:22:36 AM Referred By: REFERRED SELF Confirmed By:George Ponce
--- NOTE | 2022-03-21 08:22 | Electrocardiogram Report ---
Test Reason : Blood Pressure : / mmHG Vent. Rate : 198 BPM Atrial Rate : 198 BPM P-R Int : 000 ms QRS Dur : 080 ms QT Int : 234 ms P-R-T Axes : 000 073 244 degrees QTc Int : 424 ms Supraventricular tachycardia Nonspecific ST abnormality , may be rate related Abnormal ECG When compared with ECG of 24-SEP-2021 21:04, Supraventricular tachycardia now present Premature ventricular complexes are no longer Present Vent. rate has increased BY [address] abnormality now present Confirmed by George Ponce ([id number]) on 03/21/2022 8:22:11 AM Referred By: REFERRED SELF Confirmed By:George Ponce
[2022-03-21] MEDS ORDERED: LORazepam 2 MG in SYRINGE 1 ML IV PRN (09:27)
[2022-03-21] MEDS ORDERED: LORazepam 1 MG in SYRINGE 0.5 ML IV PRN (09:27)
[2022-03-21] MEDS ORDERED: Ativan IV Alcohol Withdrawal--Active Protocol IV PRN (09:27)
[2022-03-21] MEDS ORDERED: LORazepam 3 MG in SYRINGE 1.5 ML IV PRN (09:27)
[2022-03-21] MEDS ORDERED: ACETAMINOPHEN 325 MG TAB PO PRN (09:27)
[2022-03-21] MEDS ORDERED: ONDANSETRON INJ 2 MG/ML 2 ML VIAL IV PRN (09:27)
[2022-03-21] MEDS: ASPIRIN 81 MG ECTAB PO SCH (11:41)
--- NOTE | 2022-03-21 12:12 | Cardiology Consultation ---
Date of Consultation March 21, 2022 Assessment & Plan (1) SVT (supraventricular tachycardia): (2) Elevated troponin I level: (3) Alcoholic cardiomyopathy: Plan Patient is a 51-year-old male with longstanding history of paroxysmal supraventricular tachycardia who presented after sustained episode not responsive to typical maneuvers. Event lasted over 12 hours in duration ultimately converting with adenosine and metoprolol. Episode may have been precipitated by alcohol use or withdrawal. Past cardiac evaluations demonstrated diffuse LV dysfunction consistent with possible alcoholic cardiomyopathy Recommendations: Given hypertension and relative tachycardia post conversion from SVT would begin medications for control as well as treatment of underlying suspected diffuse LV dysfunction. We will begin with metoprolol succinate 25 mg/day and lisinopril 5 mg p.o. daily Echocardiogram ordered to reassess LV function Treat possible alcohol withdrawal as doing Troponin pattern suggestive of elevation secondary to sustained tachyarrhythmias rather than acute coronary syndrome Patient may ultimately benefit from EP referral/SVT ablation post discharge History of Present Illness Reason for Consultation: Proximal supraventricular tachycardia, hypertension, cardiomyopathy Requesting Physician: Dr. Paiz Attending Physician: Lay Paiz, DO History of Present Illness Patient is a 51-year-old male whose ongoing issues include 1. Paroxysmal supraventricular tachycardia 2. Hypertension 3. Chronic alcohol use 4. Diffuse cardiomyopathy diagnosed February 2020 Patient is referred after ER presentation with sustained tachypalpitations supraventricular tachycardia. Patient has longstanding history of atrial arrhythmia which he is treats with Valsalva maneuvers and oral magnesium. Yesterday he had sustained episode beginning approximately 3:00 in the afternoon which did not respond to typical maneuvers. Ultimately resulted in ER presentation. On initial presentation he was found to be in supraventricular tachycardia with very rapid response. He was treated with IV adenosine and metoprolol with conversion to sinus rhythm. Heart rate mildly elevated and sinus tachycardia postconversion. Blood pressure significantly elevated. Evaluations in the past demonstrated diffuse cardiomyopathy possible alcohol induced. Last cardiac evaluation February 2021 patient begun on metoprolol and lisinopril which patient did not continue. He did not arrange cardiac or medical follow-up Currently denying any acute complaints. Notes no chest pains, shortness of breath, dizziness, lightheadedness. Denies any bleeding. Notes no fevers chills or unexplained infections. Weight gradually trending upward but no signs of fluid retention. Continues to use alcohol at least 6 hard seltzers per day Allergies Allergy/AdvReac Type Severity Reaction Status Date / Time No Known Allergies Allergy Verified 09/24/21 21:42 Home Medications Medication Instructions Recorded Confirmed Type aspirin 81 mg tablet,delayed 162 mg PO 4XWK 09/24/21 09/24/21 History release multivitamin 1 tab PO DAILY 09/24/21 09/24/21 History Patient History Medical History Acute hyponatremia Chest pain Elevated troponin I level Elevated troponin I level Hypomagnesemia Hypomagnesemia No pertinent past medical history SVT (supraventricular tachycardia) SVT (supraventricular tachycardia) Surgical History History of hernia surgery July 2019 No pertinent past surgical history S/P appendectomy S/P nasal surgery after fracture with repair of the infraorbital rim S/P wisdom tooth extraction Family History Grandfather (Maternal) Myocardial infarction Heart disease Brother Hypertension Sister Hypertension Other No pertinent family history in first degree relatives Denies family history of Ovarian cancer Prostate cancer Breast cancer Lung cancer Colorectal cancer Stroke Social History Smoking Status: Never smoker Second Hand Exposure: No; Hx Alcohol Use: No Hx Substance Use: No Preferred Language: Uzbek Communication Ability: Effective Visual Impairment: No Limitations Hearing Ability: Normal Wound Care Rn Required: No Beliefs That Will Affect Care: None marital status: Single Current Living Situation: Other Current Living Situation Comment: Roommate and son. 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 How many Children do You have: 0 Feels Safe at Home: Yes Childhood Exposure to Second-Hand Smoke: Yes caffeine: Yes Dental Care, Regularly: No Physical Activity Frequency: Daily Physical Activity Frequency Comment: baby formula worker Seatbelt Use: always Sunscreen Use: Yes (sometimes) Assistive Devices: None Review of Systems 2 Review of Systems: All systems reviewed & are unremarkable except as noted in HPI & below Results & Data ([facility]) Vital Signs (Past 12 Hours) Vital Signs Temp Pulse Pulse Resp BP BP Pulse Ox 03/21/22 11:12 103 H 16 160/111 H 97 03/21/22 07:49 100 H 18 129/97 94 03/21/22 06:00 102 H 20 141/98 H 98 03/21/22 05:30 92 H 18 120/78 98 03/21/22 05:19 94 H 20 120/79 95 03/21/22 04:57 113 H 175/125 H 03/21/22 05:01 03/21/22 04:41 36.3 C L 196 H 20 170/102 H 95 O2 Del Method 03/21/22 11:12 03/21/22 07:49 Room Air 03/21/22 06:00 Room Air 03/21/22 05:30 Room Air 03/21/22 05:19 Room Air 03/21/22 04:57 03/21/22 05:01 Room Air 03/21/22 04:41 Room Air Laboratory Results Laboratory Results - last 24 hr 03/21/22 03/21/22 03/21/22 05:00 05:00 05:00 WBC 13.52 H RBC 4.75 Hgb 15.0 Hct 44.0 MCV 92.6 MCH 31.6 MCHC 34.1 RDW Std Deviation 44.7 RDW Coeff of Javy 13.2 Plt Count 266 MPV 9.8 Immature Gran % (Auto) 0.4 Neut % (Auto) 75.1 Lymph % (Auto) 17.8 [place] % (Auto) 5.7 Eos % (Auto) 0.4 Baso % (Auto) 0.6 Neut # (Auto) 10.16 H Lymph # (Auto) 2.41 [place] # (Auto) 0.77 Eos # (Auto) 0.05 Baso # (Auto) 0.08 Immature Gran # (Auto) 0.05 H Sodium 139 Potassium 3.6 Chloride 105 Carbon Dioxide 22 Anion Gap 12 H BUN 18 Creatinine 1.12 Est Cr Clr Drug Dosing 103.1 Est GFR ( Amer) 88.9 Est GFR (Non-Af Amer) 76.7 BUN/Creatinine Ratio 16.1 Glucose 131 H Calcium 8.8 Phosphorus 2.5 Magnesium 2.0 Total Bilirubin 0.5 AST 20 ALT 20 Alkaline Phosphatase 59 Troponin I High Sens 82.0 H* Total Protein 7.1 Albumin 4.3 Globulin 2.8 Albumin/Globulin Ratio 1.5 TSH 2.421 SARS-CoV-2, RNA, NAAT 03/21/22 03/21/22 05:20 10:03 WBC RBC Hgb Hct MCV MCH MCHC RDW Std Deviation RDW Coeff of Javy Plt Count MPV Immature Gran % (Auto) Neut % (Auto) Lymph % (Auto) [place] % (Auto) Eos % (Auto) Baso % (Auto) Neut # (Auto) Lymph # (Auto) [place] # (Auto) Eos # (Auto) Baso # (Auto) Immature Gran # (Auto) Sodium Potassium Chloride Carbon Dioxide Anion Gap BUN Creatinine Est Cr Clr Drug Dosing Est GFR ( Amer) Est GFR (Non-Af Amer) BUN/Creatinine Ratio Glucose Calcium Phosphorus Magnesium Total Bilirubin AST ALT Alkaline Phosphatase Troponin I High Sens 63.9 H* D Total Protein Albumin Globulin Albumin/Globulin Ratio TSH SARS-CoV-2, RNA, NAAT NEGATIVE ECG Additional Comments: EKG on presentation Supraventricular tachycardia rate [address] abnormality , may be rate related Abnormal ECG When compared with ECG of 24-SEP-2021 21:04, Supraventricular tachycardia now present Premature ventricular complexes are no longer Present Vent. rate has increased BY [address] abnormality now present EKG postconversion Sinus tachycardia with occasional Premature ventricular complexes, rate 115 beats per Left atrial enlargement Nonspecific ST abnormality Abnormal ECG When compared with ECG of 21-MAR-2022 04:51, Supraventricular tachycardia no longer present
[2022-03-21] MEDS: lisinopril 5 MG TAB PO SCH (13:38)
[2022-03-21] MEDS: METOPROLOL SUCC 25MG EXT REL TAB PO SCH (13:38)
[2022-03-21] MEDS ORDERED: METOPROLOL TARTRATE 1 MG/ML VIAL IV STA (20:09)
--- NOTE | 2022-03-21 20:54 | Emergency Department Note ---
Impression & Plan Elevated troponin level, Cardiomyopathy, Alcohol withdrawal ED Provider Note CHIEF COMPLAINT: Elevated heart rate, history of SVT HISTORY OF PRESENT ILLNESS: This 51-year-old male patient presents to the emergency department with complaints of palpitations. The patient states he has been feeling jittery with his heart racing for most of the day, began around lunchtime. Patient notes he does have a history of SVT. He does drink daily. Symptoms began while he was at work. He states he sat down and tried to take it easy but the symptoms persisted. He tried to have a bowel movement with no change in the heart pattern. Patient states he came home from work and drink 6- 8 white claws (hard seltzers) thinking that this would improve things if it were withdrawal. Patient states he used to drink hard liquor but transition to seltzer as a stepdown. Patient denies any recent fevers, chills, chest pain or shortness of breath. He denies any vomiting or diarrhea. REVIEW OF SYSTEMS: A review of systems was performed with positives and pertinent negatives listed in the history of present illness. 10 systems were reviewed and are otherwise negative. ALLERGIES: see below MEDICATIONS: see below PMH: see below SOCIAL HISTORY: see below DDx: Premature contractions, electrolyte abnormality, cardiac dysrhythmia, thyroid dysfunction, pulmonary embolism, infection, gastrointestinal, as well as other pathologies. PHYSICAL EXAM: Vital signs reviewed. General: Somewhat ill-appearing 51-year-old male, anxious but in no distress. HEENT: No scleral icterus, PERRLA, neck supple. Atraumatic. Cardiovascular: Tachycardic, regular, no extra sounds Pulmonary: Clear to auscultation bilaterally, normal work of breathing. Abdomen: Soft, nontender, nondistended, positive bowel sounds. Musculoskeletal: Atraumatic, no peripheral edema. Neurologic: Patient awake alert and oriented x 3, speech is clear Skin: Diaphoretic, pale in appearance. EMERGENCY DEPARTMENT COURSE/MDM: This patient was evaluated and appeared to be in no significant distress. IV access was obtained and laboratory work was drawn. Patient was placed on the groundwater monitoring technician noted to be in SVT. Patient was hydrated with normal saline solution and ordered a banana bag. He was given IV Ativan. Vagal maneuvers were attempted without success. 6 mg of IV adenosine were used and did break the patient's rhythm. He was then given 5 mg of IV metoprolol. Patient's laboratory work reveals a mildly elevated troponin. Given his likely alcohol withdrawal and bumped troponin, patient will be evaluated by the hospitalist service for admission and further management. MONITORING: An order for cardiac monitoring was placed and the patient is noted to be in a SVT at 198 beats per minute. RADIOLOGY: see below EKG: Supraventricular tachycardia at [address] abnormality, QTC is 424. When compared to previous dated September 24, 2021 SVT is now present Sinus tachycardia with occasional PVCs at [address] abnormality. QTC is 434. SVT is no longer present when compared to previous of the same day. DISPOSITION: admit I have personally spent 32 minutes of critical care time in the direct management of this patient. This was a life/limb threatening event. This 32 minutes is in excess of all separately billable procedures. Past Med/Surg History Medical History Acute hyponatremia Chest pain Elevated troponin I level Elevated troponin I level Hypomagnesemia Hypomagnesemia No pertinent past medical history SVT (supraventricular tachycardia) SVT (supraventricular tachycardia) Surgical History History of hernia surgery July 2019 No pertinent past surgical history S/P appendectomy S/P nasal surgery after fracture with repair of the infraorbital rim S/P wisdom tooth extraction Family History Grandfather (Maternal) Myocardial infarction Heart disease Brother Hypertension Sister Hypertension Other No pertinent family history in first degree relatives Denies family history of Ovarian cancer Prostate cancer Breast cancer Lung cancer Colorectal cancer Stroke Social History Smoking Status: Never smoker Second Hand Exposure: No; Hx Alcohol Use: Yes Alcohol type: beer Hx Substance Use: No Preferred Language: German Communication Ability: Effective Visual Impairment: No Limitations Hearing Ability: Normal Electric Motorman Required: No Beliefs That Will Affect Care: None marital status: Single Current Living Situation: Other Current Living Situation Comment: 2 roommates current occupational status: employed 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 How many Children do You have: 0 Feels Safe at Home: Yes Childhood Exposure to Second-Hand Smoke: Yes caffeine: Yes Dental Care, Regularly: No Physical Activity Frequency: Daily Physical Activity Frequency Comment: 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 Seatbelt Use: always Sunscreen Use: Yes (sometimes) Assistive Devices: None Allergies Allergies Allergy/AdvReac Type Severity Reaction Status Date / Time No Known Allergies Allergy Verified 03/27/22 08:18 Home Meds Home Medications Medication Instructions Recorded Confirmed aspirin 81 mg tablet,delayed 162 mg PO 4XWK 09/24/21 03/27/22 release multivitamin 1 tab PO DAILY 09/24/21 03/27/22 Previous Rx's Medication Instructions Recorded folic acid 1 mg tablet 1 mg PO QAM #30 tabs 03/22/22 lisinopril 5 mg tablet (Zestril) 5 mg PO QAM #30 tabs 03/22/22 metoprolol succinate 50 mg 50 mg PO QAM #30 tabs 03/22/22 tablet,extended release 24 hr thiamine HCl (vitamin B1) 100 mg 100 mg PO QAM #30 tabs 03/22/22 tablet Results & Data (ED) Vital Signs Vital Signs - 24 hr 03/21/22 04:41 03/21/22 05:01 03/21/22 04:57 Temperature 36.3 C L Temperature Source Temporal Artery Scan Pulse Rate 196 H 113 H Pulse Rhythm Regular Pulse Strength Normal Respiratory Rate 20 Respiratory Effort / Characteristics Non-Labored Spontaneous Respiratory Depth Normal Respiratory Pattern Regular Blood Pressure 170/102 H 175/125 H Blood Pressure Mean 124 Blood Pressure Position Sitting Pulse Oximetry 95 Oxygen Delivery Method Room Air Room Air Sepsis Recent Fever Within 48 Hours No Sepsis New/Unexplained Change in Mental Status N/A Sepsis Action Taken by Nursing No Action Required Pulse Oximetry Post Tiitration 92 03/21/22 05:19 03/21/22 05:30 03/21/22 06:00 Temperature Temperature Source Pulse Rate 94 H 92 H 102 H Pulse Rhythm Pulse Strength Respiratory Rate 20 18 20 Respiratory Effort / Characteristics Respiratory Depth Respiratory Pattern Blood Pressure 120/79 120/78 141/98 H Blood Pressure Mean 92 92 112 Blood Pressure Position Pulse Oximetry 95 98 98 Oxygen Delivery Method Room Air Room Air Room Air Sepsis Recent Fever Within 48 Hours Sepsis New/Unexplained Change in Mental Status Sepsis Action Taken by Nursing Pulse Oximetry Post Tiitration Home Medications Current Medication List: was personally reviewed by me Laboratory Data Attestation: I reviewed the patient's lab results. Result diagrams: 03/21/22 05:00 03/21/22 05:00 Lab Results 03/21/22 03/21/22 03/21/22 Range/Units 05:00 05:00 05:00 WBC 13.52 H (4.8-10.8) K/ul RBC 4.75 (4.63-6.08) M/uL Hgb 15.0 (14.0-18.0) g/dl Hct 44.0 (40.1-51.0) % MCV 92.6 (80.0-100.0) fL MCH 31.6 (25.0-34.0) pg MCHC 34.1 (32.0-36.0) g/dL RDW Std Deviation 44.7 (36.4-46.3) fL RDW Coeff of Javy 13.2 (11.5-14.5) % Plt Count 266 (130-400) K/uL MPV 9.8 (9.4-12.4) fL Immature Gran % (Auto) 0.4 % Neut % (Auto) 75.1 % Lymph % (Auto) 17.8 % [place] % (Auto) 5.7 % Eos % (Auto) 0.4 % Baso % (Auto) 0.6 % Neut # (Auto) 10.16 H (1.4-6.5) K/uL Lymph # (Auto) 2.41 (1.2-3.4) K/uL [place] # (Auto) 0.77 (0.24-0.82) K/uL Eos # (Auto) 0.05 (0-0.50) K/uL Baso # (Auto) 0.08 (0-0.2) K/uL Immature Gran # (Auto) 0.05 H (0.00-0.02) K/uL Sodium 139 (136-145) mmol/L Potassium 3.6 (3.5-5.1) mmol/L Chloride 105 (98-107) mmol/L Carbon Dioxide 22 (21-32) mmol/L Anion Gap 12 H (3-11) BUN 18 (6-23) mg/dl Creatinine 1.12 (0.6-1.4) mg/dl Est Cr Clr Drug Dosing 103.1 ml/min Est GFR ( Amer) 88.9 ml/min Est GFR (Non-Af Amer) 76.7 ml/min BUN/Creatinine Ratio 16.1 (10-20) Glucose 131 H (70-99(Fasting)) mg/dl Calcium 8.8 (8.5-10.1) mg/dl Phosphorus 2.5 (2.5-4.9) mg/dl Magnesium 2.0 (1.7-2.4) mg/dl Total Bilirubin 0.5 (0.2-1.0) mg/dl AST 20 (13-39) U/L ALT 20 (7-52) U/L Alkaline Phosphatase 59 (34-104) U/L Troponin I High Sens 82.0 H* (0-20) pg/ml Total Protein 7.1 (6.0-8.3) gm/dl Albumin 4.3 (3.4-5.0) gm/dl Globulin 2.8 (2.5-4.0) gm/dl Albumin/Globulin Ratio 1.5 (0.9-2) TSH 2.421 (0.300-4.500) uIu/ml SARS-CoV-2, RNA, NAAT (NEGATIVE) 03/21/22 Range/Units 05:20 WBC (4.8-10.8) K/ul RBC (4.63-6.08) M/uL Hgb (14.0-18.0) g/dl Hct (40.1-51.0) % MCV (80.0-100.0) fL MCH (25.0-34.0) pg MCHC (32.0-36.0) g/dL RDW Std Deviation (36.4-46.3) fL RDW Coeff of Javy (11.5-14.5) % Plt Count (130-400) K/uL MPV (9.4-12.4) fL Immature Gran % (Auto) % Neut % (Auto) % Lymph % (Auto) % [place] % (Auto) % Eos % (Auto) % Baso % (Auto) % Neut # (Auto) (1.4-6.5) K/uL Lymph # (Auto) (1.2-3.4) K/uL [place] # (Auto) (0.24-0.82) K/uL Eos # (Auto) (0-0.50) K/uL Baso # (Auto) (0-0.2) K/uL Immature Gran # (Auto) (0.00-0.02) K/uL Sodium (136-145) mmol/L Potassium (3.5-5.1) mmol/L Chloride (98-107) mmol/L Carbon Dioxide (21-32) mmol/L Anion Gap (3-11) BUN (6-23) mg/dl Creatinine (0.6-1.4) mg/dl Est Cr Clr Drug Dosing ml/min Est GFR ( Amer) ml/min Est GFR (Non-Af Amer) ml/min BUN/Creatinine Ratio (10-20) Glucose (70-99(Fasting)) mg/dl Calcium (8.5-10.1) mg/dl Phosphorus (2.5-4.9) mg/dl Magnesium (1.7-2.4) mg/dl Total Bilirubin (0.2-1.0) mg/dl AST (13-39) U/L ALT (7-52) U/L Alkaline Phosphatase (34-104) U/L Troponin I High Sens (0-20) pg/ml Total Protein (6.0-8.3) gm/dl Albumin (3.4-5.0) gm/dl Globulin (2.5-4.0) gm/dl Albumin/Globulin Ratio (0.9-2) TSH (0.300-4.500) uIu/ml SARS-CoV-2, RNA, NAAT NEGATIVE (NEGATIVE) Administered Medications Discontinued Medications Adenosine (Adenosine Iv Soln 3 Mg/Ml 2 Ml Vial) Confirm Administered Dose 18 mg IV .STK-MED ONE Stop: 03/21/22 04:55 Last Admin: 03/21/22 04:57 Dose: 6 mg Documented By: AMARA Aspirin (Aspirin 81 Mg Ectab) 81 mg PO DAILY [facility] Stop: 04/20/22 09:44 Last Admin: 03/22/22 09:27 Dose: 81 mg Documented By: Admin: 03/21/22 11:41 Dose: 81 mg Documented By: DESHAWN Folic Acid (Folic Acid 1 Mg Tab) [facility] [place] [facility] [place] Stop: 04/21/22 08:59 Last Admin: 03/22/22 09:28 Dose: 1 mg Documented By: RYLEY Multivitamins 10 ml/ Thiamine HCl 100 mg/ Folic Acid 1 mg/Sodium Chloride 1,011.2 mls @ 1,011.2 mls/hr IV .Q1H ONE Stop: 03/21/22 05:59 Last Infusion: 03/21/22 06:44 Dose: 0 mls/hr Documented By: Admin: 03/21/22 05:44 Dose: 1,011.2 mls/hr Documented By: KERRI Lorazepam 1 mg/ Syringe 1 mls @ 2 mls/min IV UD PRN; Protocol PRN Reason: EtOH Withdrawal AWSS Score 6,7 Stop: 04/20/22 09:26 Last Admin: 03/22/22 09:27 Dose: 2 mls/min Documented By: RYLEY Lisinopril (Lisinopril 5 Mg Tab) 5 mg PO [facility] Stop: 04/20/22 12:29 Last Admin: 03/22/22 09:27 Dose: 5 mg Documented By: Admin: 03/21/22 13:38 Dose: 5 mg Documented By: JARRED Lorazepam (Lorazepam 2 Mg/1 Ml Vial) 1 mg IV NOW STA; Protocol Stop: 03/21/22 05:43 Last Admin: 03/21/22 05:50 Dose: 1 mg Documented By: KERRI Metoprolol Succinate (Metoprolol Succ 25mg Ext Rel Tab) [facility] [place] [facility] [place] Stop: 04/20/22 12:29 Last Admin: 03/22/22 09:27 Dose: 25 mg Documented By: Admin: 03/21/22 13:38 Dose: 25 mg Documented By: JARRED Metoprolol Succinate (Metoprolol Succ 25mg Ext Rel Tab) 25 mg PO NOW STA Stop: 03/22/22 10:44 Last Admin: 03/22/22 13:15 Dose: 25 mg Documented By: RYLEY Metoprolol Tartrate (Metoprolol Tartrate 1 Mg/Ml Vial) Confirm Administered Dose 5 mg IV .STK-MED ONE Stop: 03/21/22 04:58 Last Admin: 03/21/22 04:57 Dose: 5 mg Documented By: TERRY Metoprolol Tartrate (Metoprolol Tartrate 1 Mg/Ml Vial) 2.5 mg IV NOW STA Stop: 03/21/22 20:10 Last Admin: 03/21/22 20:39 Dose: 2.5 mg Documented By: [id number] Thiamine HCl (Thiamine Hcl 100 Mg Tab) 100 mg PO QAM [facility] Stop: 04/21/22 08:59 Last Admin: 03/22/22 09:28 Dose: 100 mg Documented By: RYLEY Imaging Data Radiologist's Impression: Chest X-Ray 03/21/22 04:49 XR chest 1V portable HISTORY: 51 years-old Male Dysrhythmia acute atypical chest pain COMPARISON: Chest radiograph 09/24/2021 TECHNIQUE: Portable AP view of the chest FINDINGS: Cardiac silhouette is enlarged. Mild coarsening of the interstitium. No pneumothorax, large pleural effusion or lobar airspace consolidation. Mild interstitial coarsening of the lung bases suggestive of atelectasis. Spondylitic spurring of the spine. IMPRESSION: Cardiomegaly with mild coarsening of the interstitium. This may be secondary to technique and patient body habitus, however pulmonary vascular congestion could appear similarly. ACT 112: Negative or not required by law. The above report was generated using voice recognition software. It may contain grammatical, syntax or spelling errors. Electronically signed by: Rusty Vargas M.D. 03/21/2022 7:23 AM Blood Pressure Blood Pressure Findings: Elevated blood pressure Blood Pressure Disposition: further management by hospitalist Discharge Plan Visit Data Chief Complaint: Tachycardia Stated Complaint: TACHYCARDIA ED Provider: Denise Iglesias Discharge Problem: Elevated troponin level, Cardiomyopathy, Alcohol withdrawal Patient Disposition: Admitted As Inpatient Discharge Instructions Interventions: ED Discharge Assessment Last Done: 03/21/22 08:45
[2022-03-22] MEDS ORDERED: FOLIC ACID 1 MG TAB PO SCH (09:00)
[2022-03-22] MEDS ORDERED: THIAMINE HCL 100 MG TAB PO SCH (09:00)
[2022-03-22] MEDS: ASPIRIN 81 MG ECTAB PO SCH (09:27)
[2022-03-22] MEDS: lisinopril 5 MG TAB PO SCH (09:27)
[2022-03-22] MEDS: METOPROLOL SUCC 25MG EXT REL TAB PO SCH (09:27)
--- NOTE | 2022-03-22 10:41 | Discharge Summary ---
Date of Service March 22, 2022 Admission HPI Per Admitting Provider Darrenwin Zuluaga is a 51yo male with history of daily EtOH use, prior SVT presenting from home with SVT. He was at work yesterday afternoon when he felt sudden onset of palpitations, heart racing. He has had SVT in the past and reports that he felt similar to this. He went home and tried to breathe through a straw and perform leg lifts as this has worked for him in the past. He also took some Magnesium and drank some hard Seltzers thinking that EtOH withdrawal may be contributing. He had ongoing palpitations through the night. Diaphoresis and chest tightness. In the ER found to be in SVT. Administered Adenosine x 6mg with resolution to sinus tachycardia. No additional chest pain or SOB. ER Course: Adenosine, Ativan, Metoprolol, Banana bag Principal Diagnosis SVT Discharge Exam General: patient resting comfortably, NAD, non-toxic in appearance, AA&O x 4 Skin: warm, dry, intact, no rashes or lesions HEENT: NC/AT, PERRL, EOMI, anicteric sclera, conjunctiva without injection, external ear normal to inspection and nontender, nares patent, moist mucus membranes, dentition intact, no oropharyngeal lesions, neck supple, trachea midline, no LAD, no thyromegaly, no JVD Heart: +S1/S2, regular, tachycardic, no m/r/g Lungs: equal air entry bilaterally, no rales/rhonchi/wheezes Abd: +BS, soft, NT/ND, no masses/organomegaly/ascites Ext: warm, 2+ pulses in UE/LE bilaterally, no clubbing/cyanosis or edema Neuro: nonfocal, patient AA&O x 4, speech intact, no facial droop, moving all extremities on command with equal strength 5/5 Discharge Data Allergies Allergy/AdvReac Type Severity Reaction Status Date / Time No Known Allergies Allergy Verified 09/24/21 21:42 Consultations 03/21/22 06:14 ED Decision to Admit Stat 03/21/22 09:27 Consult Cardiology Routine Hospital Course (1) Elevated troponin I level: Most likely rate related demand ischemia. Patient without chest pain currently. EKG with SVT. -Tele monitoring -Trend troponin: peaked at 82 (high sensitive trop) -Continue ASA 81mg po daily Patient has been ambulating the halls on 03/22 Patient is asymptomatic, wants to be discharged. Vials are also stable. (2) SVT (supraventricular tachycardia): Has history of AVRT. s/p Adenosine. Now in ST -Telemetry monitoring -Maintain electrolytes -Patient does have a history of CHF with reduced EF - Echo 02/2021 with LVH and EF of 30-35% as well as moderate to severely reduced RV function. 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 He Was previously on a beta caleb therapy. -Since 2020 he has cut back on his drinking -No longer taking Metoprolol or Lisinopril Repeat Echo: Global hypokinesis of left ventricle. EF: 50-55% Left atrium: moderately dilated. Appreciate input from Cardiology: Given hypertension and relative tachycardia post conversion from SVT would begin medications for control as well as treatment of underlying suspected diffuse LV dysfunction. We will begin with metoprolol succinate 25 mg/day and lisinopril 5 mg p.o. daily Echocardiogram ordered to reassess LV function Treat possible alcohol withdrawal as doing Troponin pattern suggestive of elevation secondary to sustained tachyarrhythmias rather than acute coronary syndrome Patient may ultimately benefit from EP referral/SVT ablation post discharge (3) Alcohol use: Patient cutting back on EtOH. Did drink hard liquor now 6-8 hard seltzers daily. Reports he has a baseline tremor not related to EtOH. He is aware that he drinks to much and is actively trying to cut back. He does not wish to have any referrals at this time. -AWSS with IV Ativan administered PRN -Thiamine and Folic acid daily Total Time Total Time Spent Total Time Spent (In Minutes): 35 Discharge Plan Discharge Items Patient Disposition: Home - Self-Care Reason For Visit: TACHYCARDIA Discharge Diagnosis: tachycardia Activity: Resume your previous activity Non-emergency contact: Primary Care Provider Call non-emergency contact if: you have any medication questions Follow-up/Referrals: Abner Hagen DO [Primary Care Provider] - 03/27/22 2:00 pm Diet: Regular Addtl Attending Provider Instructions: Please watch for alcohol withdrawal symptoms. If your tremors worsen, sweats, or start hallucinating please return to the ER. Recommend followup with Cardio in 2-4 weeks Call 911 and go to the Emergency Room if: * You have tightness or pain in your chest that does not go away with rest or Nitroglycerin * You are very short of breath even with rest Call your doctor if any of the following symptoms or problems start or get worse: * Shortness of breath or difficulty breathing * Wake up at night short of breath * Chest pain * Cough * Swelling of your hands, fee, or legs * More fatigued or tired with your normal activity * Palpitations - sudden fast heart beats WEIGHT * Weigh yourself every morning after using the bathroom. * Use the same scale. * Wear the same amount of clothing. * Write your weight down on your chart. * Call your doctor if you gain more than 2-3 pounds in 1-2 days. MEDICATIONS * Use this discharge instruction sheet for instructions. * Take your medications at the time your doctor ordered. * Do not skip a dose of your medicines. * If you miss a dose of medicine, take as soon as possible, but DO NOT DOUBLE A DOSE. * Read your medicine information when you get home. * Know all of the side effects of your medicine. * Call your doctor's office if you have any side effects. * Be sure all of your doctors know what medicine and herbs you take (including cold, flu, and herbal medicine). * Pain Medicine: If you do not get relief from your pain, please call your doctor for help. Take the following with you to your follow-up doctor appointments: * Weight Chart * Medication List * List of questions Do not drink excessive alcohol, beer or wine. Pending Studies at Discharge: No Stand-Alone Forms: My [facility] Spinnaker Coating, Smoking Cessation Medications and DC Order Prescriptions: New metoprolol succinate 50 mg Tablet Extended Release 24 Hr 50 mg PO QAM Qty: 30 0RF thiamine HCl (vitamin B1) 100 mg Tablet 100 mg PO QAM Qty: 30 0RF lisinopril [Zestril] 5 mg Tablet 5 mg PO QAM Qty: 30 0RF folic acid 1 mg Tablet 1 mg PO QAM Qty: 30 0RF Continued aspirin 81 mg Tablet,Delayed Release (Dr/Ec) 162 mg PO 4XWK multivitamin Tablet 1 tab PO DAILY Discharge Orders: Discharge Order (Routine); Ordered 03/22/22 Ordered By: Patric Hartley Admission Data Admit Date/Time: 03/21/22 06:25 Attending Provider: Saborio,Patric A Admit Provider: Lay Paiz Primary Care Provider: Abner Hagen Other Providers: Lay Paiz ; Anton Malagon Other Interventions: Discharge Summary Assessment (RN) Last Done: 03/22/22 12:49 Coding Level of Care Code D/C DAY MANAGEMENT >30 MINS Diagnoses Elevated troponin I level R79.89 SVT (supraventricular tachycardia) I47.1 Alcohol use Z72.89
[2022-03-22] MEDS ORDERED: METOPROLOL SUCC 25MG EXT REL TAB PO STA (10:43)
--- NOTE | 2022-03-22 13:19 | Cardiology Progress Note ---
Date of Service March 22, 2022 Assessment & Plan (1) SVT (supraventricular tachycardia): (2) Elevated troponin I level: (3) Alcoholic cardiomyopathy: Plan Patient is a 51-year-old male with longstanding history of paroxysmal supraventricular tachycardia who presented after sustained episode not responsive to typical maneuvers. Event lasted over 12 hours in duration ultimately converting with adenosine and metoprolol. Episode may have been precipitated by alcohol use or withdrawal. Past cardiac evaluations demonstrated diffuse LV dysfunction consistent with possible alcoholic cardiomyopathy Recommendations: Given hypertension and relative tachycardia post conversion fro m SVT would begin medications for control as well as treatment of underlying suspected diffuse LV dysfunction. We will begin with metoprolol succinate 25 mg/day and lisinopril 5 mg p.o. daily Echocardiogram ordered to reassess LV function Treat possible alcohol withdrawal as doing Troponin pattern suggestive of elevation secondary to sustained tachyarrhythmias rather than acute coronary syndrome Patient may ultimately benefit from EP referral/SVT ablation post discharge Metoprolol was increased to 50 mg p.o. daily, will likely benefit from further up titration as an outpatient. Admission and Anticipated Discharge Date Admission Date: March 21, 2022 Subjective Chart reviewed. Telemetry reviewed. Patient discharged prior to being seen. Results & Data ([facility]) Vital Signs (Past 12 Hours) Vital Signs Temp Pulse Resp BP BP Pulse Ox O2 Del Method 03/22/22 12:49 37.0 C 93 H 20 162/114 H 142/98 H 96 03/22/22 11:45 37.0 C 93 H 20 142/98 H 96 Room Air 03/22/22 08:18 36.6 C 91 H 18 161/128 H 95 Room Air 03/22/22 03:13 37.0 C 94 H 20 154/112 H 93 Room Air
[2022-03-23] MEDS ORDERED: METOPROLOL SUCC 50MG EXT REL TAB PO SCH (09:00)
== END 2022-03-22 13:26 | disposition home or self-care (01) | DRG 309 ==
LOC: ED 04:34 → SUATTDRO 06:25 → EDINP 06:25 → 2W 08:45